=== PATIENT | female | born 1990 | race Caucasian/White ===

== ENCOUNTER 2020-03-27 21:06 | Emergency (ER) | payer MEDICARE, OTHER ==
[~2020-03-27] VITALS: Ht 165.1 cm; Wt 106.6 kg
[2020-03-27] MEDS ORDERED: ONDANSETRON HCL 4 MG ORAL DISINTEGRATING TAB PO ONE (21:30)
[2020-03-27] MEDS ORDERED: ACETAMINOPHEN 325 MG TAB PO ONE (21:30)
--- NOTE | 2020-03-27 21:30 | Emergency Department Note ---
History of Present Illnes History of Present Illness Chief Complaint: COVID PUI History of Present Illness This is a 29 year old female c/o nausea,vomiting, low grade fever up to 100, body aches and headache x1 week , pt states that she was recently exposed to a person who was positive for covid 19 eight days ago, pt also reports she had some dysuria a couple of days ago. Historian: Patient Arrival Mode: Car Onset (how long ago): day(s) (7) Location: head, all over Quality: fever, body aches, nausea, occasional vomiting and dysuria Radiation: Reports non-radiation Severity: mild Onset quality: gradual Duration (how long): day(s) (7) Timing of current episode: constant Progression: worsening Chronicity: new Context: Reports other (exposed to a person who was positive for covid 19 8 days ago); Denies recent illness, Denies recent surgery Relieving factors: none Exacerbating factors: none Associated symptoms: Reports fever/chills, Reports headaches, Reports loss of appetite, Reports malaise, Reports nausea/vomiting, Reports other (dysuria) Treatments prior to arrival: none Past Medical/Family History Physician Review I have reviewed the patient's past medical and family history. Any updates have been documented here. Past Medical History Recent Fever: Yes Clinical Suspicion of Infectio: No New/Unexplained Change in Ment: No Past Medical History: Hypertension Other Medical History: high cholesterol Past Surgical History: Social History Smoking Cessation: Never Smoker Alcohol Use: Occasional Any Illegal Drug Use: No Family History Family history of heart diseas: No Review of Systems Review of Systems Constitutional: Reports as per HPI EENTM: Reports no symptoms Cardiovascular: Reports no symptoms Respiratory: Reports no symptoms Gastrointestinal: Reports as per HPI Genitourinary: Reports no symptoms Musculoskeletal: Reports no symptoms Integumentary: Reports no symptoms Neurological: Reports no symptoms Psychological: Reports no symptoms Endocrine: Reports no symptoms Hematological/Lymphatic: Reports no symptoms Physical Exam Related Data Allergies: Coded Allergies: No Known Allergies (Unverified , 03/27/20) Triage Vital Signs Vital Signs Date Time Temp Pulse Resp B/P (MAP) Pulse Ox O2 Delivery O2 Flow Rate FiO2 03/27/20 21:11 99.7 110 24 155/86 100 Room Air Vital signs reviewed: Yes Physical Exam CONSTITUTIONAL Constitutional: Present well-developed, Present well-nourished; Absent distressed HENT HENT: Present normocephalic, Present atraumatic, Present oropharynx clear/moist, Present nose normal HENT L/R: Present left ext ear normal, Present right ext ear normal EYES Eyes: Reports PERRL, Reports conjunctivae normal NECK Neck: Present ROM normal, Present supple, Present other (no meningismus ) PULMONARY Pulmonary: Present effort normal, Present breath sounds normal CARDIOVASCULAR Cardiovascular: Present regular rhythm, Present heart sounds normal, Present capillary refill normal, Present tachycardia (104) GASTROINTESTINAL Abdominal: Present soft, Present nontender, Present bowel sounds normal GENITOURINARY Genitourinary: Present exam deferred SKIN Skin: Present warm, Present dry MUSCULOSKELETAL Musculoskeletal: Present ROM normal NEUROLOGICAL Neurological: Present alert, Present oriented x 3, Present no gross motor or sensory deficits PSYCHOLOGICAL Psychological: Present mood/affect normal, Present judgement normal Results Laboratory Laboratory Laboratory Tests Test 03/27/20 21:30 Urine Color Yellow (YELLOW) Urine Clarity Cloudy (CLEAR) Urine pH 7 (5 - 7) Urine Specific [place] 1.025 (1.010-1.025) Urine Protein Negative (NEGATIVE) Urine Glucose (UA) Negative (NEGATIVE) Urine Ketones Negative (NEGATIVE) Urine Blood Moderate (NEGATIVE) Urine Nitrite Negative (NEGATIVE) Urine Bilirubin Negative (NEGATIVE) Urine Urobilinogen 0.2 mg/dL (0.2 - 1) Urine Leukocyte Esterase Negative (NEGATIVE) Urine RBC 6-10 /HPF (0-5) Urine WBC 0-5 /HPF (0-5) Urine Epithelial Cells Few /LPF (NONE) Urine Amorphous Sediment Many (FEW) Urine Bacteria Moderate /HPF (NONE) Urine Test Negative (NEGATIVE) Lab results reviewed: Yes Imaging Imaging results reviewed: Yes Impressions Procedure: [id number] DX/CHEST SINGLE (PORTABLE) Exam Date: Exam Time: REPORT STATUS: Signed EXAMINATION: CHEST SINGLE (PORTABLE) INDICATION: ^Y ^fever, covid exposure ^Y COMPARISON: None FINDINGS: TUBES and LINES: None. LUNGS: Minimal streaky and hazy opacities in the mid and lower lungs. No consolidation. PLEURA: No pleural effusion or pneumothorax. HEART AND MEDIASTINUM: The cardiomediastinal silhouette is unremarkable. BONES AND SOFT TISSUES: No acute osseous lesion. Soft tissues are unremarkable. UPPER ABDOMEN: No free air under the diaphragm. IMPRESSION: Minimal bilateral streaky and hazy opacities in the mid lower lungs could represent early infection such as viral pneumonia or atelectasis. Signed by: Rianna Viveros MD on 03/27/2020 10:48 PM Dictated By: RIANNA VIVEROS MD 47 Transcribed By: MICHAEL on 03/27/202247 COPY TO: TWAN MCKAY MD~ Assessment & Plan Medical Decision Making MDM pt with covid 19 exposure with fever, chills, body aches, headaches, nausea, occasional vomiting, and dysuria a couple of days ago cxr ordered to eval for viral pneumonia ua ordered to eval for uti tylenol 650 mg po ordered zofran odt 4 mg po ordered pt discharged with prescriptions z jessy as directed #1, zofran odt 4 mg 1 sl q 6 hours prn nausea #30 Assessment & Plan Final Impression: (1) Viral pneumonia (2) Suspected COVID-19 virus infection Depart Disposition: HOME, SELF-CARE Last Vital Signs Date Time Temp Pulse Resp B/P (MAP) Pulse Ox O2 Delivery O2 Flow Rate FiO2 03/27/20 21:11 99.7 110 24 155/86 100 Room Air Medications in the ED Acetaminophen 650 mg ONCE ONCE PO ; Start 03/27/20 at 21:30; Stop 03/27/20 at 21:31 Ondansetron HCl 4 mg ONCE ONCE PO ; Start 03/27/20 at 21:30; Stop 03/27/20 at 21 :31 TWAN MCKAY MD Mar 27, 2020 21:30
[2020-03-27 21:42] LABS: BILIRUBIN,URINE NEGATIVE (NEGATIVE); CLARITY,URINE CLOUDY (CLEAR); COLOR,URINE YELLOW (YELLOW); KETONES,URINE NEGATIVE (NEGATIVE); LEUKOCYTE ESTERASE ,URINE NEGATIVE (NEGATIVE); NITRITE,URINE NEGATIVE (NEGATIVE); PREGNANCY TEST, URINE NEGATIVE (NEGATIVE); PROTEIN,URINE DIPSTICK NEGATIVE (NEGATIVE); URINE UROBILINOGEN 0.2 mg/dL (0.2 - 1)
[2020-03-27 21:49] LABS: AMORPHOUS SEDIMENT,URINE MANY (FEW); BACTERIA,URINE MODERATE /HPF; EPITHELIAL CELLS,URINE FEW /LPF; WBC,URINE (MAN) 0-5 /HPF (0-5)
--- OUTSIDE RECORDS SUMMARY | 2020-03-27 22:39 | XMS REPORT | Clinical Summary ---
Author Author [facility] Organization [facility] Address Unknown Phone Unavailable Care Team Providers Care Contract Post Office Clerk Name Role Phone PCP Unavailable Allergies Comments Active Allergy Reactions Severity Noted Date Hydroxyzine Hcl Nausea and 06/01/2016 Vomiting Medications End Date Status Medication Sig Dispensed Refills Start Date Active DULoxetine (CYMBALTA) 30 Take 30 mg by 0 mg delayed release mouth daily. capsule Active paliperidone (INVEGA) 9 Take 9 mg by 0 mg extended release mouth every tablet morning. Active busPIRone (BUSPAR) 5 mg Take 5 mg by 0 tablet mouth 3 times daily. Active gabapentin 600 mg Tb24 Take by 0 mouth. Active clonazePAM (KLONOPIN) 1 Take 1 mg by 0 mg tablet mouth 2 times daily as needed for Anxiety. Active PROPRANOLOL HCL ([id number] Take 20 mg by 0 PROPRANOLOL) 20 mg Tab mouth 2 times daily. Active Problems Problem Noted Date Substance abuse Family History Medical History Relation Name Comments Alcohol/Drug Father Unknown Fam Hx Mother Relation Name Status Comments Father Alive Mother Social History Date Tobacco Use Types Packs/Day Years Used Never Smoker Drinks/Week oz/Week Comments Alcohol Use No Sex Assigned at Date Recorded Not on file Industry Job Start Date Occupation Not on file Not on file Not on file Travel End Travel History Travel Start No recent travel history available. Last Filed Vital Signs Not on file Plan of Treatment Health Maintenance Due Date Last Done Comments Cervical Cancer Scrn (3 2010 Yrs) IMM Influenza Seasonal 05/22/2020May to October (>/= 19 yrs) Results Not on fileafter 03/27/2019 Insurance Type Payer Benefit Subscriber ID Effective Phone Address Plan / Dates Group MEDICARE MEDICARE xxxxxxxxxxx 2014- [phone] [address] PART A & B Present [id number] [place] [address] [employer] MEDICAID HMO [employer] xxxxxxxxx 2015-P [address] [address] [place] [address] [phone] [id number] [facility] [place] [address]
--- OUTSIDE RECORDS SUMMARY | 2020-03-27 22:39 | XMS REPORT | Clinical Summary ---
Author Author [facility] Address Unknown Phone Unavailable Care Team Providers Care Escrow Manager Name Role Phone Asked, No Pcp PCP Unavailable Allergies Comments Active Allergy Reactions Severity Noted Date Trazodone 01/12/2018 Medications End Date Status Medication Sig Dispensed Refills Start Date Active acetaZOLAMIDE (DIAMOX) Take 150 mg 0 125 MG tablet by mouth 3 (three) times a day. Active topiramate (TOPAMAX ORAL) Take by 0 mouth. Active cyclobenzaprine Take 5 mg by 0 (FLEXERIL) 5 mg tablet mouth 3 (three) times a day as needed for muscle spasms. Active levothyroxine (SYNTHROID, Take 50 mcg 0 LEVOXYL) 50 mcg tablet by mouth every morning. Active paliperidone (INVEGA) 9 Take 9 mg by 0 MG 24 hr tablet mouth every morning. Active Problems Not on file Social History Date Tobacco Use Types Packs/Day Years Used Current Every Day Smoker Smokeless Tobacco: Never Used Drinks/Week oz/Week Comments Alcohol Use No Sex Assigned at Date Recorded Not on file Industry Job Start Date Occupation Not on file Not on file Not on file Travel End Travel History Travel Start No recent travel history available. Last Filed Vital Signs Not on file Plan of Treatment Health Maintenance Due Date Last Done Comments CERVICAL CANCER SCREENING 2010 INFLUENZA VACCINE 03/22/2020 Results Not on fileafter 03/27/2019 Insurance Type Payer Benefit Subscriber ID Effective Phone Address Plan / Dates Group Medicare MEDICARE MEDICARE xxxxxxxxxxx 2014- NII, PART A AND Present [place] HMO [employer] AMER[employer]ROUP xxxxxxxxx 2017-P STAR+PLUS resent [facility] Advance Directives For more information, please contact: [phone] Patient Media Consultant Explanation Type Date Recorded Advance Directives, Living Will and Medical Power of Handle Sander Operator
--- OUTSIDE RECORDS SUMMARY | 2020-03-27 22:40 | XMS REPORT | Summary of Care ---
Author Author [facility] Organization [facility] Address Unknown Phone Unavailable Encounter J CARLOS Garcia(FIN) [id number] Date(s): 12/10/19 - 12/10/19 [id number] [place] [address]- [phone] Encounter Diagnosis Acute pelvic pain (Discharge Diagnosis) - 12/10/19 Discharge Disposition: Home or Self Care Attending Physician: Yossi Hampton MD Vital Signs 1 2 3 Most recent to oldest [Reference Range]: 162.56 cm (12/10/19 8:15 PM) Height 98.0 DegF (12/10/19 10:06 PM) 97.8 DegF (12/10/19 8:15 PM) Temperature Oral [96.4-99.1 DegF] 139/67 mmHg (12/10/19 10:06 PM) 143/93 mmHg *HI* (12/10/19 9:10 PM) 153/83 mmHg *HI* (12/10/19 8:33 PM) Blood Pressure [90-140/60-90 mmHg] 20 BRMIN (12/10/19 10:06 PM) 20 BRMIN (12/10/19 9:10 PM) 20 BRMIN (12/10/19 8:15 PM) Respiratory Rate [14-20 BRMIN] 88 bpm (12/10/19 10:06 PM) 98 bpm (12/10/19 9:10 PM) 98 bpm (12/10/19 8:33 PM) Peripheral Pulse Rate [60-100 bpm] 110 kg (12/10/19 8:15 PM) Weight 41.63 m2 (12/10/19 8:15 PM) Body Mass Index Problem List Condition Effective Dates Status Health Status Informan t HTN Active (hypertension)(Confi rmed)1 Hypercholesteremia(C Active onfirmed) Migraine Resolved headache(Confirmed) Substance Resolved abuse(Confirmed)2 1takes b/p meds 2Meth - last used 9 days ago Allergies, Adverse Reactions, Alerts Substance Reaction Severity Status Vistaril Active traZODone Active Medications Naprosyn 500 mg oral tablet 500 mg = 1 tab, PO, BID, X 7 day, # 14 tab, 0 Refill(s), Pharmacy: [facility]/pharmacy #[id number] Start Date: 12/10/19 Stop Date: 12/17/19 Status: Ordered Results Most recent to 1 oldest [Reference Range]: UA Bacteria [None Occasional /HPF Seen /HPF] (12/10/19 8:34 PM) UA Bili [Negative] Negative *NA* (12/10/19 8:34 PM) UA Blood [Negative] Negative (12/10/19 8:34 PM) UA Color [Yellow] Yellow *NA* (12/10/19 8:34 PM) UA Glucose [Negative Negative mg/dL mg/dL] (12/10/19 8:34 PM) UA Ketones [Negative Negative mg/dL mg/dL] *NA* (12/10/19 8:34 PM) UA Leuk Est Negative [Negative] (12/10/19 8:34 PM) UA Mucus [None Seen] None Seen (12/10/19 8:34 PM) UA Nitrite Negative [Negative] (12/10/19 8:34 PM) UA pH [5.0-8.0] 7.5 (12/10/19 8:34 PM) U Preg [Negative] Negative (12/10/19 8:34 PM) UA Protein [Negative Negative mg/dL mg/dL] (12/10/19 8:34 PM) UA RBC [0-2 /HPF] 0-2 /HPF (12/10/19 8:34 PM) UA Spec Grav 1.010 [<=1.030] (12/10/19 8:34 PM) UA Sq Epi [Few /LPF] Few /LPF (12/10/19 8:34 PM) UA Turbidity [Clear] Clear (12/10/19 8:34 PM) UA Uric Ac Madeleine Rare /HPF [None Seen /HPF] (12/10/19 8:34 PM) UA Urobilinogen 0.2 EU/dL [0.1-1.0 EU/dL] (12/10/19 8:34 PM) UA WBC [None Seen 0-2 /HPF /HPF] (12/10/19 8:34 PM) Immunizations No data available for this section Procedures Procedure Date Related Diagnosis Body Site Status section Completed Social History Social History Type Response Alcohol Past Substance Abuse Use: Past. Type: Methamphe tamines.1 Smoking Status Current every day smoker; T ype: Cigarettes; Previous treatment: None; Ready to change: Yes; Concerns about tobacco use in household: No; Exposure to Tobacco Smoke self; Cigarette Smoking L ast 365 Days Yes; Reg Smoking Cessation Counseling Yes; Tobacco use p er day: 5; entered on: 12/10/19 1Pt currently is admitted at [facility] [place] [place] for psychiatric treatment, states has not had Meth in 9 days. Assessment and Plan No data available for this section
--- OUTSIDE RECORDS SUMMARY | 2020-03-27 22:40 | XMS REPORT | Summary of Care ---
Author Author [facility] Organization [facility] Address Unknown Phone Unavailable Encounter J CARLOS Garcia(MERRY) [id number] Date(s): 09/20/16 - 09/20/16 [facility] [address] [id number]- [phone] Discharge Disposition: Home or Self Care Attending Physician: Freddy Charles MD Vital Signs No data available for this section Problem List Condition Effective Dates Status Health Status Informan t HTN Active (hypertension)(Confi rmed)1 Hypercholesteremia(C Active onfirmed) Migraine Resolved headache(Confirmed) Substance Resolved abuse(Confirmed)2 1takes b/p meds 2Meth - last used 9 days ago Allergies, Adverse Reactions, Alerts Substance Reaction Severity Status Vistaril Active Medications No data available for this section Results No data available for this section Immunizations No data available for this section Procedures Procedure Date Related Diagnosis Body Site section Social History Social History Type Response Substance Abuse Use: Current. Type: Metham phetamines.1 Smoking Status Current every day smoker; T ype: Cigarettes; Previous treatment: None; Ready to change: No; Concerns about tobacco u se in household: No; Exposure to Tobacco Smoke None; Cigarette Smoking L ast 365 Days Yes; Reg Smoking Cessation Counseling No 1Pt currently is admitted at [facility] for psychiatric treatment, states has not had Meth in 9 days. Assessment and Plan No data available for this section
--- OUTSIDE RECORDS SUMMARY | 2020-03-27 22:40 | XMS REPORT | Summary of Care ---
Author Author [facility] [place] [facility] Organization [facility] Address Unknown Phone Unavailable Encounter HQ Jose(FIN) [id number] Date(s): 12/17/19 - 12/17/19 [facility] [address] [address]- Attending Physician: Timo Walters MD Vital Signs No data available for this section Problem List Condition Effective Dates Status Health Status Informan t HTN Active (hypertension)(Confi rmed)1 Hypercholesteremia(C Active onfirmed) Migraine Resolved headache(Confirmed) Substance Resolved abuse(Confirmed)2 1takes b/p meds 2Meth - last used 9 days ago Allergies, Adverse Reactions, Alerts Substance Reaction Severity Status Vistaril Active traZODone Active Medications clonazePAM 1 mg oral tablet 1 tab, 2 Times Daily, 0 Refill(s) Start Date: 12/14/19 Status: Ordered doxepin 50 mg oral capsule 1 tab, Bedtime, 0 Refill(s) Start Date: 12/14/19 Status: Ordered Results No data available for this section [...] use p er day: 5; entered on: 12/14/19 1Pt currently is admitted at [facility] for [facility] treatment, states has not had Meth in 9 days. Assessment and Plan No data available for this section
--- OUTSIDE RECORDS SUMMARY | 2020-03-27 22:40 | XMS REPORT | Summary of Care ---
Author Author [facility] Organization [facility] Address Unknown Phone Unavailable Encounter HQ Jose(FIN) [id number] Date(s): 01/01/19 - 01/01/[address] [facility] [address] [place] [address]- [phone] Encounter Diagnosis Anxiety (Discharge Diagnosis) - 01/01/19 Discharge Disposition: Home or Self Care Attending Physician: Memo Hernandez MD Vital Signs Most recent to 1 2 oldest [Reference Range]: Height 162.56 cm (01/01/19 9:06 PM) Temperature Oral 98.6 DegF 98.6 DegF [96.4-99.1 DegF] (01/01/19 10:14 PM) (01/01/19 9:06 PM) Blood Pressure 155/89 mmHg [90-140/60-90 mmHg] *HI* (01/01/19 9:06 PM) Systolic Blood 133 mmHg Pressure [90-140 (01/01/19 10:14 PM) mmHg] Diastolic Blood 90 mmHg Pressure [60-90 (01/01/19 10:14 PM) mmHg] Respiratory Rate 18 BRMIN 22 BRMIN [14-20 BRMIN] (01/01/19 10:14 PM) *HI* (01/01/19 9:06 PM) Peripheral Pulse 96 bpm 110 bpm Rate [60-100 bpm] (01/01/19 10:14 PM) *HI* (01/01/19 9:06 PM) Weight 109.091 kg (01/01/19 9:06 PM) Body Mass Index 41.28 m2 (01/01/19 9:06 PM) Problem List Condition Effective Dates Status Health Status Informan t HTN Active (hypertension)(Confi rmed)1 Hypercholesteremia(C Active onfirmed) Migraine Resolved headache(Confirmed) Substance Resolved abuse(Confirmed)2 1takes b/p meds 2Meth - last used 9 days ago Allergies, Adverse Reactions, Alerts Substance Reaction Severity Status Vistaril Active traZODone Active Medications Ativan 1 mg, Route: PO, Drug form: TAB, ONCE, Dosing Weight 109.091, kg, Priority: STAT , Start date: 01/01/19 21:46:00 CDT, Stop date: 01/01/19 21:46:00 CDT Start Date: 01/01/19 Stop Date: 01/01/19 Status: Discontinued Xanax 0.25 mg oral tablet 2 tab, Route: PO, Drug form: TAB, ONCE, Dosing Weight 109.091, kg, Priority: STA T, Start date: 01/01/19 21:57:00 CDT, Stop date: 01/01/19 21:57:00 CDT Start Date: 01/01/19 Stop Date: 01/01/19 Status: Completed Results No data available for this section Immunizations No data available for this section Procedures Procedure Date Related Diagnosis Body Site Status section Completed Social History Social History Type Response Substance Abuse Use: Current. Type: Metham phetamines.1 Smoking Status Current every day smoker; T ype: Cigarettes; Previous treatment: None; Ready to change: No; Concerns about tobacco u se in household: No; Exposure to Tobacco Smoke None; Cigarette Smoking L ast 365 Days Yes; Reg Smoking Cessation Counseling No entered on: 01/01/19 1Pt currently is admitted at [facility] for psychiatric treatment, states has not had Meth in 9 days. Assessment and Plan No data available for this section
--- OUTSIDE RECORDS SUMMARY | 2020-03-27 22:40 | XMS REPORT | Continuity of Care Document ---
Author Author [employer] Address Unknown Phone Unavailable Care Team Providers Care Regulatory Compliance Engineer Name Role Phone [employer] Unavailable Un available Problems Problem Status Onset Date Classification Date Reported Comments Source Pelvic and perineal pain 12/10/2019 12/12/2019 [facility] ABD PAIN Active 12/10/2019 [facility] Acute vaginitis 12/09/2019 12/11/2019 [facility] Calculus of kidney 12/08/2019 12/11/2019 [facility] Unspecified abdominal pain 12/08/2019 12/11/2019 [facility] Hepatomegaly with splenomegaly, not else where classified 12/08/2019 12/11/2019 [facility] Cough 07/3008/01/2019 [facility] Bronchitis, not specified as acute or chronic 07/30/2019 08/01/2019 [facility] Unspecified asthma, uncomplicated 07/30/2019 08/01/2019 [facility] COUGH Active 07/30/2019 [facility] Acute upper respiratory infection, unspecified 07/27/2019 07/29/2019 [facility] Malaise and fatigue 07/27/2019 07/29/2019 [facility] Nausea 12/0 01/201907/29/2019 [facility] BODY ACHE Active 07/19/2019 [facility] Anxiety disorder, unspecified 01/01/2019 01/04/2019 [facility] ANXIETY Active 01/01/2019 [facility] CERVICALGIA Active 12/11/2018 [facility] [place] M54.2 Active 10/20/2018 [facility] [place] AMS/HYPERCAPNIC RESP FAILURE A ctive 11/20/2016 [facility] RESPIRATORY DISTRESS Active 11/20/2016 [facility] CHEST PAIN Active 05/12/2016 [facility] CHEST PAIN//EMS Active 03/28/2016 [facility] Discharge Diagnosis: Atypical chest pain 03/28/2016 03/31/2016 [facility] Hypertensive disorder, systemic arterial (disorder) Active Problem 12/19/2019 takes b/p meds [facility], [place],[facility] Hypercholesterolemia (disorder) Active Problem [facility], [facility] [place],[facility] Migraine (disorder) Resolved Problem 12/19/2019 [facility] Fri [place],[facility] Substance abuse (disorder) Res olved Problem Meth - last used 9 days ago [facility], [facility] [place],[facility] ALTERED MENTAL STATUS, UNSPECIFIED Active [facility] RESPIRATORY FAILURE, UNSPECIFIED WITH HY Active [facility] Medications Medication Details Route Status Patient Instructions Ordering Provider Order Date Source clonazePAM 1 mg oral tablet 1 tab, 2 Times Daily, 0 Refill(s) Active 12/14/2019 [facility] Doxepin Hydrochloride 50 MG Oral Capsule 1 tab, Bedtime, 0 Refill(s) Active 12/14/2019 [facility] Naproxen 500 MG Oral Tablet [Naprosyn] 500 mg = 1 tab, PO, BID, X 7 day, # 14 tab, 0 Refill(s), Pharmacy: [facility]/pharmacy #[id number] Active 12/11/2019 [facility] Azithromycin 1,000 mg, Route: PO, Drug form: TAB, ONCE, Dosing Weight 110, kg, Start date: 12/09/19 0:39:00 CDT, Stop date: 12/09/19 0:39:00 CDT, ABX Indication: Genital Tract Infection Inactive 12/09/2019 [facility] Flagyl 2 gm, Route: PO, ONCE, Dosing Weight 110, kg, Start date: 12/09/19 0:39:00 CDT, Stop date: 12/09/19 0:39:00 CDT, ABX Indication: Genital Tract Infection Inactive 12/09/2019 [facility] Rocephin 250 mg, Route: IM, Dr ug form: PDR/INJ, ONCE, Dosing Weight 110, kg, Priority: STAT, Start date: 12/09/19 0:39:00 CDT, Stop date: 12/09/19 0:39:00 CDT, ABX Indication: Genital Tract Infection Inactive 12/09/2019 [facility] ketOROLAC 15 mg/mL injectable solution 15 mg, Route: IVP, Drug form: INJ, ONCE, Dosing Weight 110, kg, Priority: STAT, Start date: 12/09/19 0:01:00 CDT, Stop date: 12/09/19 0:01:00 CDT Inactive 12/09/2019 [facility] Zofran Notes: (Same as: Zofran ) MEDICATION WASTE Product Size: 4 mg Product Wasted: ___ mg Inactive 12/09/2019 [facility] Fentanyl Notes: (Same as: Subl imaze) Preservative free. Inactive 12/09/2019 [facility] Indocin 50 mg, PO, Daily Active 12/09/2019 [facility] Doxepin Hydrochloride 50 MG Oral Capsule 50 mg = 1 cap, PO, Bedtime Active 12/09/2019 [facility] aripiprazole 15 MG Oral Tablet [Abilify] 15 mg = 1 tab, PO, Bedtime Active 12/09/2019 [facility] Sertraline 50 MG Oral Tablet [Zoloft] 50 mg = 1 tab, PO, Daily Active 12/09/2019 [facility] clonazePAM 1 mg oral tablet 1 mg = 1 tab, PO, BID Active 12/09/2019 [facility] Tylenol with Codeine 120 mg-12 mg/5 mL oral liquid 15 ml, PO, Q6H, PRN Cough, X 7 day, # 120 mL, 0 Refill(s), Pharmacy: [facility]/pharmacy #[id number] Active 07/30/2019 [facility] predniSONE 20 mg oral tablet 6 0 mg = 3 tab, PO, Daily, Take 3 tablets for 60 mg dose, X 5 day, # 15 tab, 0 Refill(s), Pharmacy: [facility]/pharmacy #[id number] Active 07/30/2019 [facility] Doxycycline Monohydrate 100 MG Oral Tablet 100 mg = 1 tab, PO, Q12H, X 10 day, # 20 tab, 0 Refill(s), Pharmacy: [facility]/pharmacy #[id number] Active 07/30/2019 [facility] Amoxicillin 875 MG / Clavulanate 125 MG Oral Tablet [Augmentin 875-mg] 875 mg = 1 tab, PO, BID, X 10 day, # 20 tab, 0 Refill(s), Pharmacy: [facility]/pharmacy #[id number] Active 07/30/2019 [facility] Promethazine Notes: (Same as: Phenergan) Inactive 07/30/2019 [facility] Prednisone Notes: Take with fo od. Inactive 07/30/2019 [facility] Albuterol 0.833 MG/ML / Ipratropium Brom mehreen 0.167 MG/ML Inhalant Solution [DuoNeb] Notes: (Same as: Duoneb) Inactive 07/30/2019 [facility] Acetaminophen 300 MG / Codeine Phosphate 30 MG Oral Tablet [Tylenol with Codeine #3] 1 tab, Route: PO, Dosing Weight 108.182, kg, Q6H, Start date: 07/28/19 0:00:00 DYE OPERATOR, Duration: 30 day, Stop date: 08/26/19 18:00:00 DYE OPERATOR, No Longer Active 07/28/2019 [facility] Ondansetron 4 MG Disintegrating Tablet [Zofran] 4 mg = 1 tab, PO, BID, PRN Nausea and Vomiting, Dissolve tab under tongue, # 10 tab, 0 Refill(s) Active 07/28/2019 [facility] Acetaminophen 300 MG / Codeine Phosphate 30 MG Oral Tablet [Tylenol with Codeine #3] 1 - 2 tab, PO, Q4H, PRN Cough, not to ex ceed 4000 mg acetaminophen per day Use with caution and take a stool softener while using this medication as it can cause constipation., X 2 day, # 20 tab, 0 Refill(s) Active 07/28/2019 [facility] benzonatate 100 MG Oral Capsule [Tessalon Perles] 100 mg = 1 cap, PO, Q8H, PRN cough, do not crush or chew, X 10 day, # 30 cap, 0 Refill(s) Active 07/28/2019 [facility] ibuprofen 800 mg oral tablet 8 00 mg = 1 tab, PO, Q8H, PRN Fever or Pain, Take with food For acute pain, X 10 day, # 30 tab, 0 Refill(s) Active 07/28/2019 [facility] albuterol 90 mcg/inh inhalation aerosol 2 puff, INHALATION, QID, PRN Wheezing, # 17 gm, 0 Refill(s) Active 07/28/2019 [facility] acetaminophen-codeine #3 1 tab , Route: PO, Drug Form: TAB, Dosing Weight 108.182, kg, ONCE, STAT, Start date: 07/27/19 22:13:00 DYE OPERATOR, Stop date: 07/27/19 22:13:00 DYE OPERATOR Inactive 07/28/2019 [facility] Albuterol 0.83 MG/ML Inhalant Solution 2.49 mg, Route: NEB, Drug form: SOLN, ONCE, Dosing Weight 108.182, kg, Priority: STAT, Start date: 07/27/19 22:03:00 DYE OPERATOR, Stop date: 07/27/19 22:03:00 DYE OPERATOR Inactive 07/28/2019 [facility] Brompheniramine Maleate 0.4 MG/ML / Dext romethorphan Hydrobromide 2 MG/ML / Pseudoephedrine Hydrochloride 6 MG/ML Oral Solution [Bromfed DM] 5 mL, PO, TID, PRN cough, X 8 day, # 120 mL, 0 Refill(s) Active 07/20/2019 [facility] benzonatate 200 MG Oral Capsule [Tessalon] 200 mg = 1 cap, PO, Bedtime, X 10 day, # 10 cap, 0 Refill(s) Active 07/20/2019 [facility] predniSONE 20 mg oral tablet S ee Special Instructions, PO, Daily, 4 day regimen: Day 1 - 40 mg (2 tabs) Day 2 - 30 mg (1 1/2 tabs) Day 3 - 20 mg (1 tab) Day 4 - 10 mg (1/2 tab), X 4 day, # 6 tab, 0 Refill(s) Active 07/20/2019 [facility] Dexamethasone 10 mg, Route: IM , ONCE, Dosing Weight 108.182, kg, Priority: STAT, Start date: 07/19/19 21:23:00 DYE OPERATOR, Stop date: 07/19/19 21:23:00 DYE OPERATOR Inactive 07/20/2019 [facility] Ketorolac 30 mg, Route: IM, Dr ug form: INJ, ONCE, Dosing Weight 108.182, kg, Priority: STAT, Start date: 07/19/19 21:23:00 DYE OPERATOR, Stop date: 07/19/19 21:23:00 DYE OPERATOR Inactive 07/20/2019 [facility] Alprazolam 0.25 MG Oral Tablet [Xanax] 2 tab, Route: PO, Drug form: TAB, ONCE, Dosing Weight 109.091, kg, Priority: STAT, Start date: 01/01/19 21:57:00 CDT, Stop date: 01/01/19 21:57:00 CDT Inactive 01/02/2019 [facility] Ativan 1 mg, Route: PO, Drug f orm: TAB, ONCE, Dosing Weight 109.091, kg, Priority: STAT, Start date: 01/01/19 21:46:00 CDT, Stop date: 01/01/19 21:46:00 CDT Inactive 01/02/2019 [facility] Clonidine Hydrochloride 0.2 MG Oral Tablet PO, TID, 0 Refill(s) Active 11/24/2016 [facility] topiramate 50 MG Oral Tablet [Topamax] 50 mg = 1 tab, PO, QAM, # 30 tab, 0 Refill(s) Active 11/24/2016 [facility] topiramate 25 MG Oral Tablet [Topamax] 75 mg = 3 tab, PO, Bedtime, # 90 tab, 0 Refill(s) Active 11/24/2016 [facility] Buprenorphine 4 MG / Naloxone 1 MG Oral Strip [Suboxone] 1 ea, SL, BID, # 28 ea, 0 Refill(s) Active 11/24/2016 [facility] duloxetine 60 MG Enteric Coated Capsule [Cymbalta] 60 mg = 1 cap, PO, QAM, # 30 cap, 0 Refill(s) Active 11/24/2016 [facility] duloxetine 30 MG Enteric Coated Capsule [Cymbalta] 30 mg = 1 cap, PO, Bedtime, # 30 cap, 0 Refill(s) Active 11/24/2016 [facility] 168 HR Clonidine 0.0125 MG/HR Transdermal Patch 1 patch, TOP, Q7D, 0 Refill(s) Inactiv e 11/24/2016 [facility] Lidocaine 0.05 MG/MG Transdermal Patch Notes: Apply only once for up to 12 hours in a 24-hour period (12 hours on and 12 hours off). (Same as: Lidoderm) "Remove old patch before application of new patch" Inactive 11/24/2016 [facility] remove patch Notes: Remove pat ch 12 hours after application each day. No Longe r Active 11/24/2016 [facility] Topamax Notes: (Same As: Topam ax) "Do Not Crush" No Longer Active 11/24/2016 [facility] Clonidine Hydrochloride 0.2 MG Oral Tablet Notes: (Same As: Catapres) No Longer Active 11/23/2016 [facility] buprenorphine-naloxone Notes: Same as: Suboxone Non- Formulary No Longer Active 11/23/2016 [facility] Benadryl Notes: (Same as: [place] dryl) Inactive 11/23/2016 [facility] Hydromorphone Notes: Same as D ilaudid Inactive 11/23/2016 [facility] Buprenorphine 8 MG / Naloxone 2 MG Sublingual Tablet Notes: Same as: Suboxone Non-Formulary Inactive 11/23/2016 [facility] gabapentin 300 MG Oral Capsule Notes: (Same as: Neurontin) Inactive 11/23/2016 [facility] Hydromorphone Notes: Same as D ilaudid Inactive 11/23/2016 [facility] D5W 1/2NS 1,000 mL 1,000 mL, R ate: 150 ml/hr, Infuse over: 6.7 hr, Route: IV, Dosing Weight 139.5 kg, Total Volume: 1,000, Start date: 11/23/16 2:31:00 CDT, Duration: 30 day, Stop date: 12/23/16 2:30:00 CDT Inactive 11/23/2016 [facility] D5W 1/2NS 1,000 mL + M.V.I.-12 10 mL Daily 1,000 mL, Rate: 150 ml/hr, Infuse over: 6.7 hr, Route: IV, Dosing Weight 139.5 kg, Total Volume: 1,010, Start date: 11/22/16 14:14:00 CDT, Duration: 30 day, Stop date: 12/22/16 14:13:00 CDT No Longe r Active 11/22/2016 [facility] Acetazolamide Notes: (Same as: Diamox) No Longer Active 11/22/2016 [facility] potassium phosphate + sodium chloride 0.9% INJ 250 mL Notes: (Same as: K Phosphate.) 1 mMol phoshate has 1.47 mEq potassium Infuse over 4 hours No Longer Active 11/22/2016 [facility] potassium chloride Notes: Infu se at a rate of 10 mEq/hr. (Same as: KCL) No Longer Active 11/22/2016 [facility] sodium phosphate + sodium chloride 0.9% INJ 250 mL 15 mmol, 5 mL, Route: IVPB, PRN, Dosing Weight 139.5, kg, PRN Abnormal Lab Result, Start date: 11/22/16 6:40:00 CDT, Duration: 30 day, Stop date: 12/22/16 6:39:00 CDT, FOR ICU USE ONLY No Longe r Active 11/22/2016 [facility] Magnesium Oxide Notes: (Same a s: Mag-Ox 400) Magnesium oxide [id number] elemental magnesium Dose=____mg magnesium oxide (___mg elemental magnesium) No Longer Active 11/22/2016 [facility] Magnesium Sulfate Notes: WASTE : F/P - Sink; E - Municipal Trash Bin No Longer Active 11/22/2016 [facility] Calcium Carbonate 500 MG Chewable Tablet Notes: (Same As: Tums) Calcium Carbonate 500 mg = 200 mg elemental calcium Dose = mg calcium carbonate ( mg elemental calcium) No Longer Active 11/22/2016 [facility] Calcium Gluconate Notes: WASTE : F/P - Sink; E - Municipal Trash Bin No Longer Active 11/22/2016 [facility] potassium phosphate-sodium phosphate 250 mg-280 mg-160 mg oral powder for reconstitution Notes: (Same as: Phos-NaK) Each 1.5 gm pkt has 250mg phosphorous. Mix w/2.5oz water and stir. No Longer Active 11/22/2016 [facility] Vancomycin 2001 mg: infuse ov er 2.5 hours No Longer Active 11/22/2016 [facility] Tylenol Notes: Do not exceed 4 gm/day. (Same as: Tylenol) No Longer Active 11/22/2016 [facility] 168 HR Clonidine 0.0125 MG/HR Transdermal Patch Notes: Patch delivers 0.3 mg/24 hours; Patch is applied weekly. [id number]. "Remove old patch before application of new patch" No Longer Active 11/22/2016 [facility] remove patch Notes: Remove old patch before application of new patch. No Longer Active 11/22/2016 [facility] heparin Notes: porcine heparin No Longer Active 11/21/2016 [facility] Labetalol Notes: (Same as: Rose Mitchelldaroger) Push over 2 minutes Give bolus over 2-3 minutes. Inactive 11/21/2016 [facility] Cymbalta Notes: (Same as: Cymb tuan) (Do Not Crush) Inactive 11/21/2016 [facility] remove patch Notes: Remove old patch before application of new patch. Inactive 11/21/2016 [facility] 168 HR Clonidine 0.25127 MG/HR Transdermal Patch Notes: Patch delivers 0.1 mg/24 hours; Patch is applied weekly. "Remove old patch before application of new patch" (Same As: [id number]) Inactive 11/21/2016 [facility] Topamax Notes: (Same As: Topam ax) "Do Not Crush" No Longer Active 11/21/2016 [facility] paliperidone 6 mg, Route: PO, Drug form: ERTAB, QAM, Dosing Weight 139.5, kg, Start date: 11/21/16 9:00:00 CDT, Duration: 30 day, Stop date: 12/20/16 9:00:00 CDT Inactive 11/21/2016 [facility] Prilosec 40 mg, Route: PO, Prasanth g form: DRC, Daily, Dosing Weight 139.5, kg, Start date: 11/21/16 9:00:00 CDT, Duration: 30 day, Stop date: 12/20/16 9:00:00 CDT No Longer Active 11/21/2016 [facility] Protonix Notes: For IV push re constitute with 10 ml 0.9% sodium chloride and push over 2 minutes. (Same as: Protonix) No Longer Active 11/21/2016 [facility] Clonidine Hydrochloride 0.1 MG Oral Tablet Notes: (Same As: Catapres) Inactive 11/21/2016 [facility] cefTRIAXone + sodium chloride 0.9% INJ 100 mL Notes: (Same As: Rocephin). Use with 100 mL NS and infuse over 30 min MEDICATION WASTE Product Size: 2000 mg Product Wasted: ___ mg No Longer Active 11/21/2016 [facility] Cymbalta Notes: (Same as: Cymb tuan) (Do Not Crush) No Longer Active 11/21/2016 [facility] Topamax Notes: (Same As: Topam ax) "Do Not Crush" No Longer Active 11/21/2016 [facility] Vancomycin 2,000 mg, Route: IV PB, Drug form: INJ, [id number], Dosing Weight 139.5, kg, Start date: 11/20/16 21:00:00 CDT, Duration: 30 day, Stop date: 12/20/16 9:00:00 CDT, Pediatric Dosing Inactive 11/21/2016 [facility] Vancomycin 2001 mg: infuse ov er 2.5 hours No Longer Active 11/21/2016 [facility] Ceftriaxone 2 gm, Route: IVPB, Drug form: PDR/INJ, [id number], Dosing Weight 139.5, kg, Start date: 11/20/16 19:00:00 CDT, Duration: 30 day, Stop date: 12/20/16 11:00:00 CDT Inactive 11/21/2016 [facility] Protonix Notes: For IV push re constitute with 10 ml 0.9% sodium chloride and push over 2 minutes. (Same as: Protonix) No Longer Active 11/20/2016 [facility] Labetalol Notes: (Same as: Matt valentin Trandaroger) Push over 2 minutes Give bolus over 2-3 minutes. Inactive 11/20/2016 [facility] Protonix Notes: Tablet should not be chewed or crushed. (Same as: Protonix) No Longer Active 11/20/2016 [facility] Ceftriaxone Notes: (Same As: Jose roman). Use with 100 mL NS and infuse over 30 min MEDICATION WASTE Product Size: 2000 mg Product Wasted: ___ mg Inactive 11/20/2016 [facility] Haldol Notes: (Same as: Haldol) No Longer Active 11/20/2016 [facility] Hydralazine Notes: (Same as: A presoline) Push over 5 minutes Inactive 11/20/2016 [facility] Ibuprofen 400 MG Oral Tablet 8 00 mg = 2 tab, PO, TID, PRN Pain, # 120 tab, 0 Refill(s) No Longer Active 11/20/2016 [facility] Acetaminophen 500 MG Oral Tablet [Tylenol] 500 mg = 1 tab, PO, Q8H, PRN Pain, # 60 tab, 0 Refill(s) Active 11/20/2016 [facility] Ondansetron 4 MG Oral Tablet [Zofran] 8 mg = 2 tab, PO, TID, PRN Nausea & Vomiting, # 10 tab, 0 Refill(s) No Longer Active 11/20/2016 [facility] Promethazine Hydrochloride 25 MG Oral Tablet 25 mg = 1 tab, PO, Q6H, PRN Nausea/Vomiting, # 12 tab, 0 Refill(s) No Longer Active 11/20/2016 [facility] Buprenorphine 4 MG / Naloxone 1 MG Oral Strip [Suboxone] 1 ea, SL, BID, # 30 ea, 0 Refill(s) No Longer Active 11/20/2016 [facility] paliperidone 6 mg oral tablet, extended release 6 mg = 1 tab, PO, QAM, # 30 tab, 0 Refill(s) Active 11/20/2016 [facility] paliperidone 3 mg oral tablet, extended release 3 mg = 1 tab, PO, QAM, 0 Refill(s) Active 11/20/2016 [facility] Omeprazole 20 MG Enteric Coated Capsule [Prilosec] 40 mg = 2 cap, PO, Daily, # 30 cap, 1 Refill(s) Active 11/20/2016 [facility] Centrum oral tablet 1 tab, PO, Daily, # 30 tab, 0 Refill(s) Active 11/20/2016 [facility] duloxetine 30 MG Enteric Coated Capsule [Cymbalta] 30 mg = 1 cap, PO, Bedtime, # 90 cap, 0 Refill(s) No Longer Active 11/20/2016 [facility] duloxetine 60 MG Enteric Coated Capsule [Cymbalta] 60 mg = 1 cap, PO, QAM, # 30 cap, 1 Refill(s) No Longer Active 11/20/2016 [facility] Trazodone Hydrochloride 100 MG Oral Tablet 100 mg = 1 tab, PO, Bedtime, # 30 tab, 1 Refill(s) No Longer Active 11/20/2016 [facility] tizanidine 4 mg oral tablet 4 mg = 1 tab, PO, TID, PRN for muscle spasms, # 90 tab, 0 Refill(s) Active 11/20/2016 [facility] gabapentin 300 MG Oral Capsule 300 mg = 1 cap, PO, TID, # 90 cap, 1 Refill(s) No Longe r Active 11/20/2016 [facility] busPIRone 15 mg oral tablet 15 mg = 1 tab, PO, TID, # 90 tab, 0 Refill(s) No Longer Active 11/20/2016 [facility] topiramate 25 MG Oral Tablet [Topamax] 75 mg = 3 tab, PO, Bedtime, 0 Refill(s) No Longer Active 11/20/2016 [facility] topiramate 50 MG Oral Tablet [Topamax] 50 mg = 1 tab, PO, QAM, # 60 tab, 0 Refill(s) No Longer Active 11/20/2016 [facility] Ceftriaxone Notes: (Same As: Jose roman). Use with 100 mL NS and infuse over 30 min MEDICATION WASTE Product Size: 2000 mg Product Wasted: ___ mg Inactive 11/20/2016 [facility] Vancomycin 2001 mg: infuse ov er 2.5 hours Inactive 11/20/2016 [facility] Sodium Chloride 0.154 MEQ/ML Injectable Solution 1,000 mL, 1000 ml/hr, Infuse Over: 1 hr, Route: IV, 1,000, Drug form: INJ, ONCE, Priority: STAT, Dosing Weight 139.5 kg, Start date: 11/20/16 9:59:00 CDT, Duration: 1 doses or times, Stop date: 11/20/16 9:59:00 CDT Inactive 11/20/2016 [facility] Sodium Chloride 0.154 MEQ/ML Injectable Solution 1,000 mL, 1000 ml/hr, Infuse Over: 1 hr, Route: IV, 1,000, Drug form: INJ, ONCE, Priority: STAT, Dosing Weight 139.5 kg, Start date: 11/20/16 8:51:00 CDT, Duration: 1 doses or times, Stop date: 11/20/16 8:51:00 CDT Inactive 11/20/2016 [facility] ketOROLAC 30 mg/mL injectable solution 4 days MEDICATION WASTE Product Size: 30 mg Product Wasted: _0__ mg Inactive 05/12/2016 [facility] Nitroglycerin 0.4 mg, Route: S L, ONCE, Dosing Weight 109.091, kg, Priority: STAT, Start date: 05/12/16 13:28:00 CDT, Stop date: 05/12/16 13:28:00 CDT Inactive 05/12/2016 [facility] Sodium Chloride 0.9% IV 25 mL, Route: IV, Start date: 05/12/16 13:00:00 CDT, Duration: 30 day, Stop date: 06/11/16 12:59:00 CDT, PRN Line Flush Inactive 05/12/2016 [facility] Tylenol Notes: (Same as: Tylen ol) Inactive 05/12/2016 [facility] Sodium Chloride 0.154 MEQ/ML Injectable Solution 1,000 mL, 1000 ml/hr, Infuse Over: 1 hr, Route: IV, 1,000, Drug form: INJ, ONCE, Priority: STAT, Dosing Weight 109.091 kg, Start date: 05/12/16 12:45:00 CDT, Duration: 1 doses or times, Stop date: 05/12/16 12:45:00 CDT Inactive 05/12/2016 [facility] Saline Flush 0.9% Notes: (Same as: BD Posiflush) Inactive 05/12/2016 [facility] Zofran 4 mg, Route: IVP, Drug form: INJ, ONCE, Dosing Weight 109.091, kg, Priority: STAT, Start date: 03/28/16 15:14:00 CDT, Stop date: 03/28/16 15:14:00 CDT Inactive 03/28/2016 [facility] Tylenol Notes: Do not exceed 4 gm/day. (Same as: Tylenol) Inactive 03/28/2016 [facility] Saline Flush 0.9% Notes: (Same as: BD Posiflush) Inactive 03/28/2016 [facility] Allergies, Adverse Reactions, Alerts Substance Category Reaction Severity Reaction type Status Date Reported Comments Source Vistaril Assertion Drug allergy Active Medical Group traZODone Assertion Drug allergy Active Medical Group Immunizations No Data Provided for This Section Results Order Name Results Value Reference Range Date Interpretation Comments Source URINE AND STOOL UA Color Yellow *NA* (12/10/19 8:34 PM) Yellow 12/11/2019 [facility] URINE AND STOOL UA Turbidity Clear (12/10/19 8:34 PM) Clear 12/11/2019 [facility] URINE AND STOOL UA Spec Grav 1.010 <=1.030 12/11/2019 [facility] URINE AND STOOL UA pH 7.5 5.0 - 8.0 12/11/2019 [facility] URINE AND STOOL UA Protein Negative mg/dL Negative mg/dL 12/11/2019 [facility] URINE AND STOOL UA Glucose Negative mg/dL Negative mg/dL 12/11/2019 [facility] URINE AND STOOL UA Ketones Negative mg/dL Negative mg/dL 12/11/2019 [facility] URINE AND STOOL UA Bili Negative *NA* (12/10/19 8:34 PM) Negative 12/11/2019 [facility] URINE AND STOOL UA Blood Negative (12/10/19 8:34 PM) Negative 12/11/2019 [facility] URINE AND STOOL UA Urobilinogen 0.2 0.1 - 1.0 12/11/2019 [facility] URINE AND STOOL UA Nitrite Negative (12/10/19 8:34 PM) Negative 12/11/2019 [facility] URINE AND STOOL UA Leuk Est Negative (12/10/19 8:34 PM) Negative 12/11/2019 [facility] URINE AND STOOL UA Sq Epi Few /LPF Few /LPF 12/11/2019 [facility] URINE AND STOOL UA WBC 0-2 /HPF None Seen /HPF 12/11/2019 [facility] URINE AND STOOL UA RBC 0-2 /HPF 0 - 2 12/11/2019 [facility] URINE AND STOOL UA Bacteria Occasional /HPF None Seen /HPF 12/11/2019 [facility] URINE AND STOOL UA Mucus None Seen (12/10/19 8:34 PM) None Seen 12/11/2019 [facility] URINE AND STOOL UA Uric Ac Madeleine Rare /HPF None Seen /HPF 12/11/2019 [facility] URINE CHEM U Preg Negat juanita (12/10/19 8:34 PM) Negative 12/11/2019 [facility] MOLECULAR DIAGNOSTIC Source APTIMA Vaginal *NA* (12/08/19 11:58 PM) 12/09/2019 [facility] MOLECULAR DIAGNOSTIC C trachomatis b y Amp Det (APTIMA) Negative *NA* (12/08/19 11:58 PM) Negative 12/09/2019 [facility] MOLECULAR DIAGNOSTIC N gonorrhea by Amp Det (APTIMA) Negative *NA* (12/08/19 11:58 PM) Negative 12/09/2019 [facility] CHEM PANEL Glucose Lvl 128 70 - 99 12/09/2019 [facility] CHEM PANEL Creatinine Lvl 0.74 0.50 - 1.40 12/09/2019 [facility] CHEM PANEL Sodium Lvl 143 135 - 145 12/09/2019 [facility] CHEM PANEL Potassium Lvl 4.7 3.5 - 5.1 12/09/2019 [facility] CHEM PANEL Chloride Lvl 109 95 - 109 12/09/2019 [facility] CHEM PANEL CO2 23 24 - 32 12/09/2019 [facility] CHEM PANEL Calcium Lvl 8.7 8.5 - 10.5 12/09/2019 [facility] CHEM PANEL Total Protein 7.4 6.4 - 8.4 12/09/2019 [facility] CHEM PANEL Albumin Lvl 3.7 3.5 - 5.0 12/09/2019 [facility] CHEM PANEL ALT 25 0 - 65 12/09/2019 [facility] CHEM PANEL AST 14 0 - 37 12/09/2019 [facility] CHEM PANEL Alk Phos 76 39 - 136 12/09/2019 [facility] CHEM PANEL Bili Total 0.2 0.2 - 1.3 12/09/2019 [facility] CHEM PANEL AGAP 15.7 10.0 - 20.0 12/09/2019 [facility] CHEM PANEL Globulin 3.7 2.7 - 4.2 12/09/2019 [facility] CHEM PANEL A/G Ratio 1.0 0.7 - 1.6 12/09/2019 [facility] CHEM PANEL eGFR 109 12/09/2019 Result Comment: The eGFR is calculated using the CKD-EPI formula. In most young, healthy individuals the eGFR will be >90 mL/min/1.73m2. The eGFR declines with age. An eGFR of 60-89 may be normal in some populations, particularly the elderly, for whom the CKD-EPI formula has not been extensively validated. Use of the eGFR is not recommended in the following populations:

Individuals with unstable creatinine concentrations, including patients and those with serious co-morbid conditions.

Patients with extremes in muscle mass or diet.

The data above are obtained from the National Kidney Disease Education Program (NKDEP) which additionally recommends that when the eGFR is used in patients with extremes of body mass index for purposes of drug dosing, the eGFR should be multiplied by the estimated BMI. [facility] CHEM PANEL BUN 21 7 - 22 12/09/2019 [facility] CHEM PANEL B/C Ratio 28 6 - 25 12/09/2019 [facility] CHEM PANEL Lipase Lvl 121 73 - 393 12/09/2019 [facility] CHEM PANEL Lactic Acid Lvl 1.1 0.5 - 2.2 12/09/2019 [facility] HEMATOLOGY WBC 12.3 3.7 - 10.4 12/09/2019 [facility] HEMATOLOGY RBC 5.03 4.20 - 5.40 12/09/2019 [facility] HEMATOLOGY Hgb 14.7 12.0 - 16.0 12/09/2019 [facility] HEMATOLOGY Hct 44.6 36.0 - 48.0 12/09/2019 [facility] HEMATOLOGY MCV 88.6 80.0 - 98.0 12/09/2019 [facility] MCH 29.3 27.0 - 31.0 12/09/2019 [facility] MCHC 33.1 32.0 - 36.0 12/09/2019 [facility] RDW 14.2 11.5 - 14.5 12/09/2019 [facility] Platelet 281 133 - 450 12/09/2019 [facility] MPV 8.6 7.4 - 10.4 12/09/2019 [facility] Segs 86.6 45.0 - 75.0 12/09/2019 [facility] Lymphocytes 9.8 20.0 - 40.0 12/09/2019 [facility] HEMATOLOGY Monocytes 2.6 2.0 - 12.0 12/09/2019 [facility] HEMATOLOGY Eosinophils 0.7 0.0 - 4.0 12/09/2019 [facility] HEMATOLOGY Basophils 0.4 0.0 - 1.0 12/09/2019 [facility] HEMATOLOGY Neutrophils # 10.6 1.5 - 8.1 12/09/2019 [facility] Lymphocytes # 1.2 1.0 - 5.5 12/09/2019 [facility] HEMATOLOGY Monocytes # 0.3 0.0 - 0.8 12/09/2019 [facility] HEMATOLOGY Eosinophils # 0.1 0.0 - 0.5 12/09/2019 [facility] URINE AND STOOL UA Color Light Yellow (12/08/19 9:49 PM) Yellow 12/09/2019 [facility] URINE AND STOOL UA Turbidity Hazy 12/09/2019 [facility] URINE AND STOOL UA Spec Grav 1.015 <=1.030 12/09/2019 [facility] URINE AND STOOL UA pH 7.5 5.0 - 8.0 12/09/2019 [facility] URINE AND STOOL UA Protein Negative (12/08/19 9:49 PM) Negative 12/09/2019 [facility] URINE AND STOOL UA Glucose Negative (12/08/19 9:49 PM) Negative 12/09/2019 [facility] URINE AND STOOL UA Ketones Negative (12/08/19 9:49 PM) Negative 12/09/2019 [facility] URINE AND STOOL UA Bili Negative (12/08/19 9:49 PM) Negative 12/09/2019 [facility] URINE AND STOOL UA Blood Negative (12/08/19 9:49 PM) Negative 12/09/2019 [facility] URINE AND STOOL UA Urobilinogen 0.2 0.1 - 1.0 12/09/2019 [facility] URINE AND STOOL UA Nitrite Negative (12/08/19 9:49 PM) Negative 12/09/2019 [facility] URINE AND STOOL UA Leuk Est Negative (12/08/19 9:49 PM) Negative 12/09/2019 [facility] URINE AND STOOL UA Sq Epi Few /LPF Few /LPF 12/09/2019 [facility] URINE AND STOOL UA WBC 0-2 /HPF None Seen /HPF 12/09/2019 [facility] URINE AND STOOL UA RBC 0-2 /HPF 0 - 2 12/09/2019 [facility] URINE AND STOOL UA Bacteria Occasional /HPF None Seen /HPF 12/09/2019 [facility] URINE AND STOOL UA Mucus None Seen (12/08/19 9:49 PM) None Seen 12/09/2019 [facility] URINE AND STOOL UA Amorph Madeleine Moderate /HPF None Seen /HPF 12/09/2019 [facility] URINE CHEM U Preg Negat juanita (12/08/19 9:49 PM) Negative 12/09/2019 [facility] CHEM PANEL B/C Ratio 24 6 - 25 11/24/2016 [facility] CHEM PANEL AGAP 10.8 10.0 - 20.0 11/24/2016 [facility] CHEM PANEL Chloride Lvl 111 95 - 109 11/24/2016 [facility] CHEM PANEL Potassium Lvl 3.8 3.5 - 5.1 11/24/2016 [facility] CHEM PANEL Sodium Lvl 144 135 - 145 11/24/2016 [facility] CHEM PANEL Calcium Lvl 8.3 8.5 - 10.5 11/24/2016 [facility] CHEM PANEL Bili Total 1.1 0.2 - 1.3 11/24/2016 [facility] CHEM PANEL A/G Ratio 0.9 0.7 - 1.6 11/24/2016 [facility] CHEM PANEL Alk Phos 50 39 - 136 11/24/2016 [facility] CHEM PANEL Total Protein 5.8 6.4 - 8.4 11/24/2016 [facility] CHEM PANEL Globulin 3.0 2.7 - 4.2 11/24/2016 [facility] CHEM PANEL eGFR 134 11/24/2016 Result Comment: The eGFR is calculated using the CKD-EPI formula. In most young, healthy individuals the eGFR will be >90 mL/min/1.73m2. The eGFR declines with age. An eGFR of 60-89 may be normal in some populations, particularly the elderly, for whom the CKD-EPI formula has not been extensively validated. Use of the eGFR is not recommended in the following populations:

Individuals with unstable creatinine concentrations, including patients and those with serious co-morbid conditions.

Patients with extremes in muscle mass or diet.

The data above are obtained from the National Kidney Disease Education Program (NKDEP) which additionally recommends that when the eGFR is used in patients with extremes of body mass index for purposes of drug dosing, the eGFR should be multiplied by the estimated BMI. [facility] CHEM PANEL Creatinine Lvl 0.49 0.50 - 1.40 11/24/2016 [facility] CHEM PANEL BUN 12 7 - 22 11/24/2016 [facility] CHEM PANEL Glucose Lvl 90 70 - 99 11/24/2016 [facility] CHEM PANEL AST 35 0 - 37 11/24/2016 [facility] CHEM PANEL CO2 26 24 - 32 11/24/2016 [facility] CHEM PANEL ALT 51 0 - 65 11/24/2016 [facility] CHEM PANEL Albumin Lvl 2.8 3.5 - 5.0 11/24/2016 [facility] HEMATOLOGY MPV 7.8 7.4 - 10.4 11/24/2016 [facility] HEMATOLOGY MCHC 33.0 32.0 - 36.0 11/24/2016 [facility] HEMATOLOGY RDW 14.8 11.5 - 14.5 11/24/2016 [facility] HEMATOLOGY Platelet 215 133 - 450 11/24/2016 [facility] HEMATOLOGY MCV 80.3 80.0 - 98.0 11/24/2016 [facility] HEMATOLOGY MCH 26.5 27.0 - 31.0 11/24/2016 [facility] HEMATOLOGY RBC 4.21 4.20 - 5.40 11/24/2016 [facility] HEMATOLOGY Hgb 11.2 12.0 - 16.0 11/24/2016 [facility] HEMATOLOGY Hct 33.8 36.0 - 48.0 11/24/2016 [facility] HEMATOLOGY WBC 7.2 3.7 - 10.4 11/24/2016 [facility] HEMATOLOGY Eosinophils # 0.2 0.0 - 0.5 11/24/2016 [facility] HEMATOLOGY Basophils # 0.1 0.0 - 0.2 11/24/2016 [facility] HEMATOLOGY Eosinophils 2.4 0.0 - 4.0 11/24/2016 [facility] HEMATOLOGY Basophils 1.1 0.0 - 1.0 11/24/2016 [facility] HEMATOLOGY Segs-Bands # 4.1 1.5 - 8.1 11/24/2016 [facility] HEMATOLOGY Lymphocytes # 2.2 1.0 - 5.5 11/24/2016 [facility] HEMATOLOGY Monocytes # 0.7 0.0 - 0.8 11/24/2016 [facility] HEMATOLOGY Segs 56.1 45.0 - 75.0 11/24/2016 [facility] HEMATOLOGY Lymphocytes 30.2 20.0 - 40.0 11/24/2016 [facility] HEMATOLOGY Monocytes 10.2 2.0 - 12.0 11/24/2016 [facility] CHEM PANEL Phosphorus 2.2 2.5 - 4.5 11/23/2016 [facility] ELECTROLYTES Potassium Lvl 3.4 3.5 - 5.1 11/23/2016 [facility] BODY FLUIDS Clarity CSF [place] (11/23/16 9:46 AM) Clear 11/23/2016 [facility] BODY FLUIDS Color CSF [place] rless (11/23/16 9:46 AM) Colorless 11/23/2016 [facility] FLUIDS Tube Num CSF 1 11/23/2016 [facility] BODY FLUIDS RBC CSF 185 0 - 03 11/23/2016 [facility] BODY FLUIDS Supernat CSF [place] rless (11/23/16 9:46 AM) Colorless 11/23/2016 [facility] BODY FLUIDS WBC CSF 2 0 - 53 11/23/2016 [facility] BACTERIAL - SEROLOGY Source Strep Cerebral Spinal Fluid 11/23/2016 [facility] BACTERIAL - SEROLOGY Strep pneumonia e Ag Negative (11/23/16 9:00 AM) Negative 11/23/2016 [facility] BODY FLUIDS Lactic Acid CSF 1.4 0.6 - 2.2 11/23/2016 [facility] BODY FLUIDS RBC CSF 58 0 - 03 11/23/2016 [facility] BODY FLUIDS WBC CSF 1 0 - 53 11/23/2016 [facility] BODY FLUIDS Tube Num CSF 4 11/23/2016 [facility] BODY FLUIDS Clarity CSF [place] (11/23/16 9:00 AM) Clear 11/23/2016 [facility] BODY FLUIDS Color CSF [place] (11/23/16 9:00 AM) Colorless 11/23/2016 [facility] BODY FLUIDS Supernat CSF [place] rless (11/23/16 9:00 AM) Colorless 11/23/2016 [facility] BODY FLUIDS Glucose CSF 63 45 - 80 11/23/2016 [facility] BODY FLUIDS Protein CSF 33 15 - 45 11/23/2016 [facility] FUNGAL - SEROLOGY Crypto Ag CSF Negative (11/23/16 9:00 AM) Negative 11/23/2016 [facility] IMMUNOLOGY VDRL Scr CSF Non R eactive (11/23/16 9:00 AM) Non Reactive 11/23/2016 [facility] MOLECULAR DIAGNOSTIC Source CMV Cerebral Spinal Fluid 11/23/2016 [facility] [place] MOLECULAR DIAGNOSTIC CMV PCR Negative (11/23/16 9:00 AM) Negative 11/23/2016 [facility] MOLECULAR DIAGNOSTIC Source HSV Cerebral Spinal Fluid 11/23/2016 [facility] [place] MOLECULAR DIAGNOSTIC HSV 2 by PCR Not Performed 2 (11/23/16 9:00 AM) Negative 11/23/2016 Result Comment: CSF contains less than 5 WBC'S and has a normal Protein level. [facility] MOLECULAR DIAGNOSTIC HSV 1 by PCR Not Performed 1 (11/23/16 9:00 AM) Negative 11/23/2016 Result Comment: CSF contains less than 5 WBC'S and has a normal Protein level. [facility] VIRAL - SEROLOGY Enterovirus PCR CSF Negative (11/23/16 9:00 AM) Negative 11/23/2016 [facility] CHEM PANEL Phosphorus 0.7 2.5 - 4.5 11/23/2016 Result Comment: Critical Result(s) isaacs d to Ivania Rivera at 11/23/2016 04:11 by hy. Read back OK. [facility] CHEM PANEL Magnesium Lvl 2.1 1.8 - 2.4 11/23/2016 [facility] PARATHYROID PROFILE Ca Norm WB 1.08 1.05 - 1.25 11/23/2016 [facility] PARATHYROID PROFILE Ca Ion WB 1.08 1.05 - 1.25 11/23/2016 [facility] CHEM PANEL B/C Ratio 20 6 - 25 11/23/2016 [facility] CHEM PANEL AGAP 11.4 10.0 - 20.0 11/23/2016 [facility] CHEM PANEL A/G Ratio 0.9 0.7 - 1.6 11/23/2016 [facility] CHEM PANEL Globulin 3.0 2.7 - 4.2 11/23/2016 [facility] CHEM PANEL eGFR 138 11/23/2016 Result Comment: The eGFR is calculated using the CKD-EPI formula. In most young, healthy individuals the eGFR will be >90 mL/min/1.73m2. The eGFR declines with age. An eGFR of 60-89 may be normal in some populations, particularly the elderly, for whom the CKD-EPI formula has not been extensively validated. Use of the eGFR is not recommended in the following populations:

Individuals with unstable creatinine concentrations, including patients and those with serious co-morbid conditions.

Patients with extremes in muscle mass or diet.

The data above are obtained from the National Kidney Disease Education Program (NKDEP) which additionally recommends that when the eGFR is used in patients with extremes of body mass index for purposes of drug dosing, the eGFR should be multiplied by the estimated BMI. [facility] CHEM PANEL Albumin Lvl 2.7 3.5 - 5.0 11/23/2016 [facility] CHEM PANEL AST 13 0 - 37 11/23/2016 [facility] CHEM PANEL ALT 27 0 - 65 11/23/2016 [facility] CHEM PANEL Glucose Lvl 96 70 - 99 11/23/2016 [facility] CHEM PANEL CO2 27 24 - 32 11/23/2016 [facility] CHEM PANEL Creatinine Lvl 0.45 0.50 - 1.40 11/23/2016 [facility] [employer] CHEM PANEL Chloride Lvl 110 95 - 109 11/23/2016 [facility] CHEM PANEL Potassium Lvl 3.4 3.5 - 5.1 11/23/2016 [facility] [employer] CHEM PANEL Calcium Lvl 7.9 8.5 - 10.5 11/23/2016 [facility] [employer] CHEM PANEL Sodium Lvl 145 135 - 145 11/23/2016 [facility] CHEM PANEL BUN 9 7 - 22 11/23/2016 [facility] CHEM PANEL Alk Phos 46 39 - 136 11/23/2016 [facility] CHEM PANEL Bili Total 0.7 0.2 - 1.3 11/23/2016 [facility] CHEM PANEL Total Protein 5.7 6.4 - 8.4 11/23/2016 [facility] HEMATOLOGY Hct 35.4 36.0 - 48.0 11/23/2016 [facility] HEMATOLOGY Hgb 11.3 12.0 - 16.0 11/23/2016 [facility] HEMATOLOGY RBC 4.24 4.20 - 5.40 11/23/2016 [facility] HEMATOLOGY MCV 83.5 80.0 - 98.0 11/23/2016 [facility] HEMATOLOGY MCH 26.7 27.0 - 31.0 11/23/2016 [facility] HEMATOLOGY WBC 8.2 3.7 - 10.4 11/23/2016 [facility] HEMATOLOGY MPV 8.4 7.4 - 10.4 11/23/2016 [facility] HEMATOLOGY Platelet 196 133 - 450 11/23/2016 [facility] HEMATOLOGY RDW 14.6 11.5 - 14.5 11/23/2016 [facility] HEMATOLOGY MCHC 32.0 32.0 - 36.0 11/23/2016 [facility] HEMATOLOGY Eosinophils # 0.1 0.0 - 0.5 11/23/2016 [facility] HEMATOLOGY Monocytes # 0.9 0.0 - 0.8 11/23/2016 [facility] HEMATOLOGY Basophils # 0.1 0.0 - 0.2 11/23/2016 [facility] HEMATOLOGY Lymphocytes # 2.3 1.0 - 5.5 11/23/2016 [facility] HEMATOLOGY Lymphocytes 28.6 20.0 - 40.0 11/23/2016 [facility] HEMATOLOGY Segs 58.1 45.0 - 75.0 11/23/2016 [facility] HEMATOLOGY Plt Morph Delaney l (11/23/16 2:41 AM) 11/23/2016 [facility] HEMATOLOGY RBC Morph Delaney l (11/23/16 2:41 AM) 11/23/[address] [facility] Segs-Bands # 4.8 1.5 - 8.1 11/23/2016 [facility] HEMATOLOGY Basophils 0.8 0.0 - 1.0 11/23/2016 [facility] HEMATOLOGY Eosinophils 1.7 0.0 - 4.0 11/23/2016 [facility] HEMATOLOGY Monocytes 10.8 2.0 - 12.0 11/23/2016 [facility] ENDOCRINOLOGY Cortisol 4.7 11/22/2016 [facility] ENDOCRINOLOGY Prolactin Lvl 54 .6 11/22/2016 [facility] HEMATOLOGY PTT 28.7 22.9 - 35.8 11/22/2016 [facility] HEMATOLOGY PT 14.1 12.0 - 14.7 11/22/2016 [facility] HEMATOLOGY INR 1.07 0.85 - 1.17 11/22/2016 [facility] TOXICOLOGY Vanco Lvl 7.7 11/22/2016 [facility] ELECTROLYTES AGAP 11.4 10.0 - 20.0 11/22/2016 [facility] ELECTROLYTES BUN 11 7 - 22 11/22/2016 [facility] ELECTROLYTES Sodium Lvl 143 135 - 145 11/22/2016 [facility] ELECTROLYTES CO2 32 24 - 32 11/22/2016 [facility] ELECTROLYTES Chloride Lvl 103 95 - 109 11/22/2016 [facility] ELECTROLYTES Calcium Lvl 7.9 8.5 - 10.5 11/22/2016 [facility] ELECTROLYTES Glucose Lvl 103 70 - 99 11/22/2016 [facility] ELECTROLYTES eGFR 135 11/22/2016 Result Comment: The eGFR is calculated using the CKD-EPI formula. In most young, healthy individuals the eGFR will be >90 mL/min/1.73m2. The eGFR declines with age. An eGFR of 60-89 may be normal in some populations, particularly the elderly, for whom the CKD-EPI formula has not been extensively validated. Use of the eGFR is not recommended in the following populations:

Individuals with unstable creatinine concentrations, including patients and those with serious co-morbid conditions.

Patients with extremes in muscle mass or diet.

The data above are obtained from the National Kidney Disease Education Program (NKDEP) which additionally recommends that when the eGFR is used in patients with extremes of body mass index for purposes of drug dosing, the eGFR should be multiplied by the estimated BMI. [facility] ELECTROLYTES Creatinine Lvl 0.4 8 0.50 - 1.40 11/22/2016 [facility] HEMATOLOGY Platelet 238 133 - 450 11/22/2016 [facility] HEMATOLOGY MPV 8.6 7.4 - 10.4 11/22/2016 [facility] HEMATOLOGY Hgb 12.0 12.0 - 16.0 11/22/2016 [facility] HEMATOLOGY MCH 26.3 27.0 - 31.0 11/22/2016 [facility] HEMATOLOGY RBC 4.55 4.20 - 5.40 11/22/2016 [facility] HEMATOLOGY WBC 11.8 3.7 - 10.4 11/22/2016 [facility] HEMATOLOGY MCHC 32.0 32.0 - 36.0 11/22/2016 [facility] HEMATOLOGY Hct 37.4 36.0 - 48.0 11/22/2016 [facility] HEMATOLOGY RDW 14.4 11.5 - 14.5 11/22/2016 [facility] HEMATOLOGY MCV 82.2 80.0 - 98.0 11/22/2016 [facility] HEMATOLOGY Basophils # 0.1 0.0 - 0.2 11/22/2016 [facility] HEMATOLOGY Monocytes # 1.0 0.0 - 0.8 11/22/2016 [facility] HEMATOLOGY Eosinophils # 0.1 0.0 - 0.5 11/22/2016 [facility] HEMATOLOGY Lymphocytes # 2.0 1.0 - 5.5 11/22/2016 [facility] HEMATOLOGY Basophils 0.6 0.0 - 1.0 11/22/2016 [facility] HEMATOLOGY Eosinophils 0.7 0.0 - 4.0 11/22/2016 [facility] HEMATOLOGY Monocytes 8.6 2.0 - 12.0 11/22/2016 [facility] HEMATOLOGY Segs-Bands # 8.6 1.5 - 8.1 11/22/2016 [facility] HEMATOLOGY RBC Morph Delaney l (11/22/16 3:09 AM) 11/22/2016 [facility] HEMATOLOGY Segs 73.1 45.0 - 75.0 11/22/2016 [facility] HEMATOLOGY Lymphocytes 17.0 20.0 - 40.0 11/22/2016 [facility] HEMATOLOGY Plt Morph Delaney l (11/22/16 3:09 AM) 11/22/2016 [facility] BACTERIAL - SEROLOGY MRSA by PCR Negative (11/21/16 6:15 PM) 11/21/2016 [facility] CARDIAC ENZYMES Total CK 83 12 - 191 11/21/2016 [facility] CHEM PANEL Ammonia 55.0 <=45.0 uMol/L 11/21/2016 [facility] TOXICOLOGY Ethanol Lvl <3 11/21/2016 [facility] TOXICOLOGY Etoh (%) <0.003 11/21/2016 [facility] TOXICOLOGY Acetaminoph Lvl <2 10 - 20 11/21/2016 [facility] TOXICOLOGY Salicylate Lvl 4.7 0.0 - 30.0 11/21/2016 [facility] TOXICOLOGY Vanco Tr TND 1130 11/21/2016 [facility] TOXICOLOGY Vanco Tr 9.4 11/21/2016 [facility] CHEM PANEL A/G Ratio 1.1 0.7 - 1.6 11/21/2016 [facility] CHEM PANEL Bili Total 0.4 0.2 - 1.3 11/21/2016 [facility] CHEM PANEL Globulin 3.0 2.7 - 4.2 11/21/2016 [facility] CHEM PANEL Total Protein 6.4 6.4 - 8.4 11/21/2016 [facility] CHEM PANEL Alk Phos 59 39 - 136 11/21/2016 [facility] CHEM PANEL AST 23 0 - 37 11/21/2016 [facility] CHEM PANEL ALT 45 0 - 65 11/21/2016 [facility] CHEM PANEL B/C Ratio 17 6 - 25 11/21/2016 [facility] CHEM PANEL Albumin Lvl 3.4 3.5 - 5.0 11/21/2016 [facility] HEMATOLOGY Bands 5.0 0.0 - 11.0 11/21/2016 [facility] HEMATOLOGY Myelocytes 1.0 <=0.0 % 11/21/2016 [facility] HEMATOLOGY Metamyelocytes 1.0 0.0 - 1.0 11/21/2016 [facility] HEMATOLOGY Plt Morph Delaney l (11/21/16 6:26 AM) 11/21/2016 [facility] HEMATOLOGY Atypical Lymphs 0.0 <=0.0 % 11/21/2016 [facility] HEMATOLOGY RBC Morph Delaney l (11/21/16 6:26 AM) 11/21/2016 [facility] HEMATOLOGY NRBC 2 11/21/2016 [facility] CHEM PANEL Lactic Acid Lvl 0.4 0.5 - 2.2 11/20/2016 [facility] CHEM PANEL Lactic Acid Lvl 3.5 0.5 - 2.2 11/20/2016 [facility] CHEM PANEL Phosphorus 4.5 2.5 - 4.5 11/20/2016 [facility] CHEM PANEL Magnesium Lvl 2.1 1.8 - 2.4 11/20/2016 [facility] CHEM PANEL Lactic Acid WB 2.8 0.5 - 2.2 11/20/2016 [facility] DRUG SCREEN UDS Note See Note (11/20/16 8:53 AM) 11/20/2016 [facility] DRUG SCREEN U Opiate Scr Nega tive *NA* (11/20/16 8:53 AM) Negative 11/20/2016 [facility] DRUG SCREEN U Cannab Scr Nega tive *NA* (11/20/16 8:53 AM) Negative 11/20/2016 [facility] DRUG SCREEN U Phencyc Scr Nega tive *NA* (11/20/16 8:53 AM) Negative 11/20/2016 [facility] DRUG SCREEN U Benzodia Scr Posi tive *ABN* (11/20/16 8:53 AM) Negative 11/20/2016 [facility] DRUG SCREEN U Cocaine Scr Nega tive *NA* (11/20/16 8:53 AM) Negative 11/20/2016 [facility] DRUG SCREEN U Amph Scr Nega tive *NA* (11/20/16 8:53 AM) Negative 11/20/2016 [facility] DRUG SCREEN U Venessa Scr Nega tive *NA* (11/20/16 8:53 AM) Negative 11/20/2016 [facility] TOXICOLOGY Acetaminoph Lvl <2 10 - 20 11/20/2016 [facility] TOXICOLOGY Salicylate Lvl <1.7 0.0 - 30.0 11/20/2016 [facility] URINE AND STOOL UA RBC 1 0 - 2 11/20/2016 [facility] URINE AND STOOL UA WBC 1 0 - 5 11/20/2016 [facility] URINE AND STOOL UA Sq Epi Occasional /LPF Few /LPF 11/20/2016 [facility] URINE AND STOOL UA Amorph Madeleine Occasional /HPF None Seen /HPF 11/20/2016 [facility] [place] URINE AND STOOL UA Mucus Few /LPF None Seen /LPF 11/20/2016 [facility] URINE AND STOOL UA Hyal Cast 2 0 - 2 11/20/2016 [facility] URINE AND STOOL UA Blood Negative (11/20/16 8:53 AM) Negative 11/20/2016 [facility] URINE AND STOOL UA Bili Negative *NA* (11/20/16 8:53 AM) Negative 11/20/2016 [facility] URINE AND STOOL UA Nitrite Negative (11/20/16 8:53 AM) Negative 11/20/2016 [facility] URINE AND STOOL UA Leuk Est Negative (11/20/16 8:53 AM) Negative 11/20/2016 [facility] URINE AND STOOL UA Urobilinogen <=1.0 mg/dL 0.1 - 1.0 11/20/2016 [facility] [place] URINE AND STOOL UA Ketones Negative 11/20/2016 [facility] URINE AND STOOL UA Glucose Negative mg/dL Negative mg/dL 11/20/2016 [facility] [place] URINE AND STOOL UA Protein 100 mg/dL Negative mg/dL 11/20/2016 [facility] URINE AND STOOL UA pH 5.0 5.0 - 8.0 11/20/2016 [facility] URINE AND STOOL UA Spec Grav 1.014 <=1.030 11/20/2016 [facility] URINE AND STOOL UA Turbidity Slight *ABN* (11/20/16 8:53 AM) Clear 11/20/2016 [facility] URINE AND STOOL UA Color Yellow *NA* (11/20/16 8:53 AM) Yellow 11/20/2016 [facility] URINE CHEM U Preg Negat juanita (11/20/16 8:53 AM) Negative 11/20/2016 [facility] URINE AND STOOL UA Urobilinogen <=1.0 mg/dL 0.1 - 1.0 05/12/2016 [facility] URINE AND STOOL UA RBC 1 0 - 2 05/12/2016 [facility] URINE AND STOOL UA WBC 1 0 - 5 05/12/2016 [facility] URINE AND STOOL UA Sq Epi Occasional /LPF Few /LPF 05/12/2016 [facility] URINE AND STOOL UA Nitrite Negative (05/12/16 1:15 PM) Negative 05/12/2016 [facility] URINE AND STOOL UA Ketones Negative mg/dL Negative mg/dL 05/12/2016 [facility] URINE AND STOOL UA Leuk Est Negative (05/12/16 1:15 PM) Negative 05/12/2016 [facility] URINE AND STOOL UA Blood Negative (05/12/16 1:15 PM) Negative 05/12/2016 [facility] URINE AND STOOL UA Bili Negative *NA* (05/12/16 1:15 PM) Negative 05/12/2016 [facility] URINE AND STOOL UA Turbidity Clear (05/12/16 1:15 PM) Clear 05/12/2016 [facility] URINE AND STOOL UA Color Light Yellow *NA* (05/12/16 1:15 PM) Yellow 05/12/2016 [facility] URINE AND STOOL UA pH 6.0 5.0 - 8.0 05/12/2016 [facility] URINE AND STOOL UA Spec Grav 1.014 <=1.030 05/12/2016 [facility] URINE AND STOOL UA Glucose Negative mg/dL Negative mg/dL 05/12/2016 [facility] URINE AND STOOL UA Protein Negative mg/dL Negative mg/dL 05/12/2016 [facility] URINE CHEM U Preg Negat juanita (05/12/16 1:15 PM) Negative 05/12/2016 [facility] CARDIAC ENZYMES CK MB Index <0.7 0.0 - 2.5 05/12/2016 [facility] CARDIAC ENZYMES Troponin-I <0.02 0.00 - 0.40 05/12/2016 [facility] CARDIAC ENZYMES CK MB <0.5 0.5 - 3.6 05/12/2016 [facility] CARDIAC ENZYMES Total CK 70 12 - 191 05/12/2016 [facility] CHEM PANEL eGFR 124 05/12/2016 Result Comment: The eGFR is calculated using the CKD-EPI formula. In most young, healthy individuals the eGFR will be >90 mL/min/1.73m2. The eGFR declines with age. An eGFR of 60-89 may be normal in some populations, particularly the elderly, for whom the CKD-EPI formula has not been extensively validated. Use of the eGFR is not recommended in the following populations:

Individuals with unstable creatinine concentrations, including patients and those with serious co-morbid conditions.

Patients with extremes in muscle mass or diet.

The data above are obtained from the National Kidney Disease Education Program (NKDEP) which additionally recommends that when the eGFR is used in patients with extremes of body mass index for purposes of drug dosing, the eGFR should be multiplied by the estimated BMI. [facility] CHEM PANEL Glucose Lvl 92 70 - 99 05/12/2016 [facility] CHEM PANEL BUN 16 7 - 22 05/12/2016 [facility] CHEM PANEL Creatinine Lvl 0.63 0.50 - 1.40 05/12/2016 [facility] CHEM PANEL Alk Phos 65 39 - 136 05/12/2016 [facility] CHEM PANEL Bili Total 0.2 0.2 - 1.3 05/12/2016 [facility] CHEM PANEL ALT 27 0 - 65 05/12/2016 [facility] CHEM PANEL CO2 31 24 - 32 05/12/2016 [facility] CHEM PANEL Total Protein 6.7 6.4 - 8.4 05/12/2016 [facility] CHEM PANEL Albumin Lvl 3.5 3.5 - 5.0 05/12/2016 [facility] CHEM PANEL Chloride Lvl 104 95 - 109 05/12/2016 [facility] CHEM PANEL Calcium Lvl 8.9 8.5 - 10.5 05/12/2016 [facility] CHEM PANEL AGAP 6.7 10.0 - 20.0 05/12/2016 [facility] CHEM PANEL B/C Ratio 25 6 - 25 05/12/2016 [facility] CHEM PANEL AST 17 0 - 37 05/12/2016 [facility] CHEM PANEL Globulin 3.2 2.7 - 4.2 05/12/2016 [facility] CHEM PANEL A/G Ratio 1.1 0.7 - 1.6 05/12/2016 [facility] CHEM PANEL Sodium Lvl 137 135 - 145 05/12/2016 [facility] CHEM PANEL Potassium Lvl 4.7 3.5 - 5.1 05/12/2016 [facility] CHEM PANEL Phosphorus 3.5 2.5 - 4.5 05/12/2016 [facility] CHEM PANEL Magnesium Lvl 1.8 1.8 - 2.4 05/12/2016 [facility] HEMATOLOGY Eosinophils # 0.3 0.0 - 0.5 05/12/2016 [facility] HEMATOLOGY Basophils # 0.1 0.0 - 0.2 05/12/2016 [facility] HEMATOLOGY Lymphocytes # 3.1 1.0 - 5.5 05/12/2016 [facility] HEMATOLOGY Monocytes # 0.6 0.0 - 0.8 05/12/2016 [facility] HEMATOLOGY Basophils 0.5 0.0 - 1.0 05/12/2016 [facility] HEMATOLOGY Segs-Bands # 5.4 1.5 - 8.1 05/12/2016 [facility] HEMATOLOGY Eosinophils 3.0 0.0 - 4.0 05/12/2016 [facility] HEMATOLOGY Lymphocytes 33.0 20.0 - 40.0 05/12/2016 [facility] HEMATOLOGY Monocytes 6.2 2.0 - 12.0 05/12/2016 [facility] HEMATOLOGY Segs 57.3 45.0 - 75.0 05/12/2016 [facility] HEMATOLOGY D-Dimer 0.35 05/12/2016 [facility] HEMATOLOGY PT 13.2 12.0 - 14.7 05/12/2016 [facility] HEMATOLOGY INR 0.97 0.85 - 1.17 05/12/2016 [facility] HEMATOLOGY Platelet 296 133 - 450 05/12/2016 [facility] HEMATOLOGY MPV 9.1 7.4 - 10.4 05/12/2016 [facility] HEMATOLOGY MCHC 33.8 32.0 - 36.0 05/12/2016 [facility] HEMATOLOGY RDW 14.4 11.5 - 14.5 05/12/2016 [facility] HEMATOLOGY MCH 28.5 27.0 - 31.0 05/12/2016 [facility] HEMATOLOGY Hct 39.8 36.0 - 48.0 05/12/2016 [facility] HEMATOLOGY Hgb 13.5 12.0 - 16.0 05/12/2016 [facility] HEMATOLOGY MCV 84.2 80.0 - 98.0 05/12/2016 [facility] HEMATOLOGY WBC 9.5 3.7 - 10.4 05/12/2016 [facility] HEMATOLOGY RBC 4.73 4.20 - 5.40 05/12/2016 [facility] IMMUNOLOGY CDC HIV 4th GEN Negat juanita (03/28/16 3:40 PM) Negative 03/28/2016 [facility] CARDIAC ENZYMES CK MB Index <1.3 0.0 - 2.5 03/28/2016 [facility] CARDIAC ENZYMES Troponin-I <0.02 0.00 - 0.40 03/28/2016 [facility] CARDIAC ENZYMES CK MB <0.5 0.5 - 3.6 03/28/2016 [facility] CARDIAC ENZYMES Total CK 39 12 - 191 03/28/2016 [facility] CARDIAC ENZYMES BNP 77 <=100 pg/mL 03/28/2016 [facility] CHEM PANEL eGFR 123 03/28/2016 Result Comment: The eGFR is calculated using the CKD-EPI formula. In most young, healthy individuals the eGFR will be >90 mL/min/1.73m2. The eGFR declines with age. An eGFR of 60-89 may be normal in some populations, particularly the elderly, for whom the CKD-EPI formula has not been extensively validated. Use of the eGFR is not recommended in the following populations:

Individuals with unstable creatinine concentrations, including patients and those with serious co-morbid conditions.

Patients with extremes in muscle mass or diet.

The data above are obtained from the National Kidney Disease Education Program (NKDEP) which additionally recommends that when the eGFR is used in patients with extremes of body mass index for purposes of drug dosing, the eGFR should be multiplied by the estimated BMI. [facility] CHEM PANEL Chloride Lvl 106 95 - 109 03/28/2016 [facility] CHEM PANEL Creatinine Lvl 0.65 0.50 - 1.40 03/28/2016 [facility] CHEM PANEL Glucose Lvl 72 70 - 99 03/28/2016 [facility] CHEM PANEL BUN 13 7 - 22 03/28/2016 [facility] CHEM PANEL Sodium Lvl 139 135 - 145 03/28/2016 [facility] CHEM PANEL Potassium Lvl 4.1 3.5 - 5.1 03/28/2016 [facility] CHEM PANEL Calcium Lvl 8.2 8.5 - 10.5 03/28/2016 [facility] CHEM PANEL CO2 27 24 - 32 03/28/2016 [facility] CHEM PANEL A/G Ratio 1.0 0.7 - 1.6 03/28/2016 [facility] CHEM PANEL B/C Ratio 20 6 - 25 03/28/2016 [facility] CHEM PANEL Globulin 2.9 2.7 - 4.2 03/28/2016 [facility] CHEM PANEL AST 10 0 - 37 03/28/2016 [facility] CHEM PANEL Bili Total 0.2 0.2 - 1.3 03/28/2016 [facility] CHEM PANEL AGAP 10.1 10.0 - 20.0 03/28/2016 [facility] CHEM PANEL Albumin Lvl 3.0 3.5 - 5.0 03/28/2016 [facility] CHEM PANEL ALT 20 0 - 65 03/28/2016 [facility] CHEM PANEL Total Protein 5.9 6.4 - 8.4 03/28/2016 [facility] CHEM PANEL Alk Phos 52 39 - 136 03/28/2016 [facility] HEMATOLOGY Basophils # 0.1 0.0 - 0.2 03/28/2016 [facility] HEMATOLOGY Segs-Bands # 4.8 1.5 - 8.1 03/28/2016 [facility] HEMATOLOGY Basophils 1.1 0.0 - 1.0 03/28/2016 [facility] HEMATOLOGY Eosinophils # 0.2 0.0 - 0.5 03/28/2016 [facility] HEMATOLOGY Lymphocytes # 3.0 1.0 - 5.5 03/28/2016 [facility] HEMATOLOGY Monocytes # 0.6 0.0 - 0.8 03/28/2016 [facility] HEMATOLOGY Lymphocytes 34.3 20.0 - 40.0 03/28/2016 [facility] HEMATOLOGY Segs 55.1 45.0 - 75.0 03/28/2016 [facility] HEMATOLOGY Monocytes 6.7 2.0 - 12.0 03/28/2016 [facility] HEMATOLOGY Eosinophils 2.8 0.0 - 4.0 03/28/2016 [facility] HEMATOLOGY MPV 8.9 7.4 - 10.4 03/28/2016 [facility] HEMATOLOGY Hgb 12.9 12.0 - 16.0 03/28/2016 [facility] HEMATOLOGY RBC 4.63 4.20 - 5.40 03/28/2016 [facility] HEMATOLOGY Platelet 269 133 - 450 03/28/2016 [facility] HEMATOLOGY WBC 8.8 3.7 - 10.4 03/28/2016 [facility] HEMATOLOGY RDW 14.2 11.5 - 14.5 03/28/2016 [facility] HEMATOLOGY Hct 37.9 36.0 - 48.0 03/28/2016 [facility] HEMATOLOGY MCHC 34.0 32.0 - 36.0 03/28/2016 [facility] HEMATOLOGY MCV 81.8 80.0 - 98.0 03/28/2016 [facility] HEMATOLOGY MCH 27.8 27.0 - 31.0 03/28/2016 [facility] Pathology Reports No Data Provided for This Section Diagnostic Reports Report Value Date Source Pelvis Transvaginal US PROCEDU RE INFORMATION: Exam: US Pelvis, Transvaginal Exam date and time: 12/10/2019 8:42 PM Age: 29 years old Clinical indication: Abdominal pain and other: Left flank pain radiating to lower left side; Patient HX: Left flank pain; PT here 12/07- C/O right side pain; Per CT 12/09/19, left renal stone; Lt ovary not vis. On US 12/09/19; Additional info: /left adnexal pain COMPARISON: PELVIS TRANSVAG W PELVIS DOPPLER US 12/09/2019 12:14 AM TECHNIQUE: Transvaginal pelvic ultrasound was performed. Transabdominal approach not utilized. FINDINGS: The pelvis show the retroflexed uterus measures 8.0 x 3.7 x 4.4 cm in size. There is normal parenchymal echotexture. The endometrial stripe measures 5.7 mm in thickness. The right ovary measures 2.8 x 2.5 x 1.7 cm. The left ovary measures 2.7 x 1.3 x 1.7 cm. Both ovaries demonstrate normal blood flow on Doppler evaluation. Bilateral ovarian follicles present. There is no adnexal mass. There is no free fluid in the cul-de-sac. IMPRESSION: Bilateral ovarian follicles. Otherwise normal appearance of bilateral ovaries with normal arterial and venous Doppler blood flow. Bhasakr Katz MD On 12/10/2019 21:52:37; [id number] 12/10/2019 [facility] Transvag w Pelvis Doppler US PROCEDURE INFORMATION: Exam: US Pelvis Complete, Transabdominal and US Pelvis, Transvaginal Exam date and time: 12/09/2019 12:14 AM Age: 29 years old Clinical indication: Pelvic pain; Patient HX: PT C/O right sided pain; Additional info: Abdominal pain, acute/eval for ovarian torsion TECHNIQUE: Imaging protocol: Real-time transabdominal and transvaginal pelvic ultrasound (complete) with image documentation. Tra nsvaginal imaging was used for better evaluation of the endometrium and adnexa. Other technique: Transvaginal and transabdominal pelvic ultrasound was performed. Transvginal images were obtained for more detailed evaluation of the endometrial stripe and ovaries. COMPARISON: CT ED Abdomen/Pelvis IV contrast only 12/08/2019 11:05 PM FINDINGS: Transabdominal images of the pelvis show the retroverted uterus measures 5.3 x 4.0 x 4.3 cm in size. Uterus not well assessed necessitating transvaginal exam. The transvaginal exam shows normal parenchymal echotexture. The endometrial stripe measures 6 mm in thickness. The right ovary measures 3.2 x 1.8 x 2.1 cm and the left ovary is not well demonstrated. There is normal right ovarian blood flow on doppler evaluation. There is no adnexal mass. There is no free fluid in the cul-de-sac. IMPRESSION: 1. Unremarkable uterus and right ovary. 2. Nonvisualized left ovary. Tiffany Choi MD On 12/09/2019 01:09:08; [id number] 12/09/2019 [facility] ED Abdomen/Pelvis IV contrast only CT Radiation Dose CTDIVOL = 0 (mGy): DLP = 1164.7 (mGy-cm) PROCEDURE INFORMATION: Exam: CT Abdomen And Pelvis With Contrast Exam date and time: 12/08/2019 11:05 PM Age: 29 years old Clinical indication: Abdominal pain; Other: RT side; Patient HX: Chief complaint: PT here with C/O right sided abd pain and urinary frequen cy for one day. PT states otc meds not helping. Reason for visit: Abd pain; Additional info: /abd pain TECHNIQUE: Imaging protocol: Computed tomography of the abdomen and pelvis with intravenous contrast. Total DLP: 1164.7 mGy-cm Radiation optimization: All CT scans at this facility use at least one of these dose optimization techniques: automated exposure control; mA and/or kV adjustment per patient size (includes targeted exams where dose is matched to clinical indication); or iterative reconstruction. Contrast material: OMNIPAQUE 300; Contrast volume: 100 ml; Contrast route: IV; COMPARISON: No relevant prior studies available. FINDINGS: Liver: Liver is enlarged at 26 cm. Gallbladder and bile ducts: The gallbladder appears collapsed. Pancreas: No focal lesion or acute pathology appreciated. Spleen: Splenomegaly is enlarged at 14 cm. Adrenals: No focal lesion or acute pathology appreciated. Kidneys and ureters: There is a 4 mm lower pole left renal stone noted. Stomach and bowel: No obstruction or abnormal thickening appreciated. Appendix: No evidence of appendicitis appreciated. Intraperitoneal space: No free air or significant fluid collection appreciated. Vasculature: No acute pathololgy appreciated. Lymph nodes: No lymphadenopathy appreciated. Bladder: No acute pathology appreciated. Reproductive: No acute pathology appreciated. Bones/joints: No suspicious lesion appreciated. Soft tissues: No acute pathology appreciated. IMPRESSION: 1. Contracted gallbladder. 2. Hepatosplenomegaly. Further work up f or etiology and follow up recommended. 3. Nephrolithiasis. Juli Colon MD On 12/08/2019 23:26:24; [id number] 12/08/2019 [facility] 2 views DX PROCEDURE INF ORMATION: Exam: XR Chest, 2 Views Exam date and time: 07/30/2019 10:46 AM Age: 29 years old Clinical history: Cough; Additional info: /persistant cough TECHNIQUE: Imaging protocol: XR of the chest Views: 2 views. PA and Lateral COMPARISON: CR CHEST 2 VIEWS DX 07/27/2019 10:58 PM FINDINGS: Limitations: Clothing artifact Lungs: Reactive airway findings with peribronchial thickening. No consolidation. Normal lung volumes. Some accentuated kyphosis. Pleural space: Unremarkable. No pleural effusion. No pneumothorax. Heart/Mediastinum: The heart size is normal. The pulmonary vasculature is normal. The mediastinal contour is normal. The trachea is midline. Bones/joints: No acute abnormality seen. IMPRESSION: Reactive airway findings with peribronchial thickening. No consolidation. Abner Gonsalves MD On 07/30/2019 10:55:04; [id number] 07/30/2019 [facility] 2 views DX PROCEDURE INF ORMATION: Exam: XR Chest, 2 Views Exam date and time: 07/27/2019 10:58 PM Age: 29 years old Clinical history: Cough; Additional info: /cough TECHNIQUE: Imaging protocol: XR of the chest Views: 2 views. PA and Lateral COMPARISON: CR CHEST 2 VIEWS DX 07/19/2019 9:54 PM FINDINGS: Lungs: Clear. No consolidation. Pleural space: No pleural effusion. No pneumothorax. Heart/Mediastinum: Contours within normal limits. Bones/joints: No acute osseous process. IMPRESSION: No acute cardiopulmonary findings Bhaskar Katz MD On 07/27/2019 22:59:56; [id number] 07/27/2019 [facility] Chest 2 views DX PROCEDURE INF ORMATION: Exam: XR Chest, 2 Views Exam date and time: 07/19/2019 9:54 PM Age: 29 years old Clinical history: Cough and fever; Additional info: /cough, fever TECHNIQUE: Imaging protocol: XR of the chest Views: 2 views. PA and Lateral COMPARISON: CR CHEST 1V FOR PLACEMENT DX 11/22/2016 6:30 PM FINDINGS: Lungs: There are normal lung volumes without consolidation or interstitial oppacities. Pleural space: Unremarkable. No pleural effusion. No pneumothorax. Heart/Mediastinum: The heart size is normal. The pulmonary vasculature is normal. The mediastinal contour is normal. The trachea is midline. Bones/joints: No acute abnormality seen. IMPRESSION: No acute cardiopulmonary findings Mohan Sinclair MD On 07/19/2019 22:03:19; [id number] 07/19/2019 [facility] Spine lumbar puncture w fluoro DX FLUOROSCOPIC GUIDED LUMBAR PUNCTURE 11/23/2016 7:00 AM CDT Technique: Informed consent was obtained. Sterile barrier technique was utilized. The fluoroscopy time is 4 seconds. 0 exposure(s). Using sterile technique and fluoroscopic guidance, I advanced a 25 gauge spinal needle into the thecal sac at the L3-L4 level. The opening CSF pressure is approximately 30 cm H2O. Approximately 13 cc of clear CSF were obtained. The patient tolerated the procedure well. IMPRESSION: Technically successful fluoroscopic-guided lumbar puncture. 11/23/2016 [facility] Chest 1 v for Placement DX Cli nical history: PICC Line Placement. : 1990. Technique: Portable AP chest x-ray. Comparison: 11/20/2016. Heart size: Moderately enlarged. Prominent vasculature. Lungs: No acute consolidation. Shallow inspiration. Pleura: No pleural effusion. No pneumothorax. Mediastinum and jo: Unremarkable. Musculoskeletal: Unremarkable. Support tubings: Right PICC line distal SVC. Impression: 1. Cardiomegaly. 11/22/2016 [facility] Brain wo contrast CT Patient N jacob: SCARLETT HAGEN : 1990; Age: 26 years y/o Female MR: [id number] Study: Brain wo contrast CT 11/20/2016 8:58 AM CDT Ordering Physician: Sandra Stephenson MD Clinical Indication: ams - ams,; Comparison: None TECHNIQUE: Noncontrast images of the brain are obtained from the skull base to the vertex. Axial, sagittal, and coronal images are interpreted. DLP: 976 mGy-cm This exam was performed according to our departmental dose-optimization protocol, which includes automated exposure control, adjustment of the mA and/or kV according to patient size and/or use of iterative reconstruction technique. FINDINGS: BRAIN PARENCHYMA: There is a brain volume is age-appropriate. There is diffuse effacement of the sulci with narrowed basal cisterns and lateral ventricles. The cerebellar tonsils remain above foramen magnum. The brain volume is age appropriate. The mcduffie-white distinction is maintained. CEREBELLOPONTINE REGIONS AND SKULL BASE: The cerebellopontine angles appear unremarkable. No skull base abnormality is seen. VENTRICLES/SULCI/CISTERNS: Diffusely narrowed ORBITS, VISUALIZED PARANASAL SINUSES AND MASTOIDS: Paranasal sinuses are clear. The mastoid air cells are clear. No orbital pathology is seen. IMPRESSION: 1. Diffusely narrowed cerebral sulci, la teral ventricles, and basal cisterns with intact mcduffie-white distinction suggestive of a mild diffuse edematous state, which may relate to benign increased intracranial pressure versus recent seizure activity or conceivably meningitis 2. The cerebellar tonsils remain above f oramen magnum, and there is no critical mass effect 3. Findings were discussed with Dr. Ronnell goss by telephone on 11/20/2016 at approximately 1015 hours 11/20/2016 [facility] Chest 1view DX EXAM: AP CHEST X-RAY DATE: 11/20/2016 8:58 AM CDT . TECHNIQUE: SINGLE FRONTAL VIEW OF THE CHEST COMPARISON: 03/28/2016 chest x-ray FINDINGS: The lungs are substantially underinflated without focal consolidation. Heart and mediastinal contours are stable. There is no acute bony abnormality. IMPRESSION: Severely underinflated lungs without acute findings clearly identified 11/20/2016 [facility] Spine cervical 2 or 3 view DX EXAM: Cervical spine HISTORY: Cervicalgia COMPARISON: None TECHNIQUE: 4 views cervical spine FINDINGS: Straightening of the cervical spine may be due to patient positioning or reflect muscle spasm. Otherwise, normal alignment. Mild degenerative disc space narrowing C6-7. SL: [id number] 09/20/2016 [facility] Chest 1view DX PROCEDURE: CHES T SINGLE VIEW INDICATION: Mid left chest pain for one hour COMPARISON: None. FINDINGS: The lungs are clear. The pleura, cardiomediastinal silhouette and bony thorax are normal. No vascular congestion is present. IMPRESSION: No acute cardiopulmonary process. SL: [id number] 03/28/2016 [facility] Consultation Notes No Data Provided for This Section Discharge Summaries No Data Provided for This Section History and Physicals No Data Provided for This Section Vital Signs Vital Sign Value Date Comments Source Systolic (mm Hg) 139 12/11/2019 [facility] Diastolic (mm Hg) 67 12/11/2019 [facility] Heart Rate 88 12/11/2019 [facility] Respitory Rate 20 12/11/2019 [facility] Temperature Oral (F) 98.0 F 12/11/2019 [facility] Systolic (mm Hg) 143 12/11/2019 [facility] Diastolic (mm Hg) 93 12/11/2019 [facility] Heart Rate 98 12/11/2019 [facility] Respitory Rate 20 12/11/2019 [facility] Heart Rate 98 12/11/2019 [facility] Systolic (mm Hg) 153 12/11/2019 [facility] Diastolic (mm Hg) 83 12/11/2019 [facility] Height 162.56 cm 12/11/2019 [facility] BMI Calculated 41.63 12/11/2019 [facility] Weight 110 12/11/2019 [facility] Respitory Rate 20 12/11/2019 [facility] Temperature Oral (F) 97.8 F 12/11/2019 [facility] Systolic (mm Hg) 147 12/09/2019 [facility] Diastolic (mm Hg) 80 12/09/2019 [facility] Heart Rate 86 12/09/2019 [facility] Respitory Rate 18 12/09/2019 [facility] Temperature Oral (F) 98.3 F 12/09/2019 [facility] Systolic (mm Hg) 124 12/09/2019 [facility] Diastolic (mm Hg) 84 12/09/2019 [facility] Heart Rate 84 12/09/2019 [facility] Respitory Rate 18 12/09/2019 [facility] Height 162.56 cm 12/09/2019 [facility] BMI Calculated 41.63 12/09/2019 [facility] Weight 110 12/09/2019 [facility] Systolic (mm Hg) 151 12/09/2019 [facility] Diastolic (mm Hg) 88 12/09/2019 [facility] Heart Rate 99 12/09/2019 [facility] Respitory Rate 18 12/09/2019 [facility] Temperature Oral (F) 98.5 F 12/09/2019 [facility] Systolic (mm Hg) 154 07/30/2019 [facility] Diastolic (mm Hg) 79 07/30/2019 [facility] Heart Rate 90 07/30/2019 [facility] Respitory Rate 18 07/30/2019 [facility] Temperature Oral (F) 98.2 F 07/30/2019 [facility] Systolic (mm Hg) 148 07/30/2019 [facility] Diastolic (mm Hg) 82 07/30/2019 [facility] Heart Rate 105 07/30/2019 [facility] Respitory Rate 18 07/30/2019 [facility] Temperature Oral (F) 98 F 07/30/2019 [facility] Height 162.56 cm 07/30/2019 [facility] BMI Calculated 40.94 07/30/2019 [facility] Weight 108.182 07/30/2019 [facility] Systolic (mm Hg) 127 07/28/2019 [facility] Diastolic (mm Hg) 76 07/28/2019 [facility] Respitory Rate 18 07/28/2019 [facility] Heart Rate 76 07/28/2019 [facility] Temperature Oral (F) 98.3 F 07/28/2019 [facility] Systolic (mm Hg) 146 07/28/2019 [facility] Diastolic (mm Hg) 81 07/28/2019 [facility] Heart Rate 87 07/28/2019 [facility] Respitory Rate 28 07/28/2019 [facility] Temperature Oral (F) 98.2 F 07/28/2019 [facility] Height 165.1 cm 07/28/2019 [facility] BMI Calculated 39.69 07/28/2019 [facility] Weight 108.182 07/28/2019 [facility] Systolic (mm Hg) 144 07/20/2019 [facility] Diastolic (mm Hg) 72 07/20/2019 [facility] Heart Rate 88 07/20/2019 [facility] Respitory Rate 20 07/20/2019 [facility] Temperature Oral (F) 99.2 F 07/20/2019 [facility] Systolic (mm Hg) 156 07/20/2019 [facility] Diastolic (mm Hg) 85 07/20/2019 [facility] Heart Rate 95 07/20/2019 [facility] Respitory Rate 18 07/20/2019 [facility] Temperature Oral (F) 99.2 F 07/20/2019 [facility] Height 162.56 cm 07/20/2019 [facility] BMI Calculated 40.94 07/20/2019 [facility] Weight 108.182 07/20/2019 [facility] Temperature Oral (F) 98.6 F 01/02/2019 [facility] Systolic (mm Hg) 133 01/02/2019 [facility] Diastolic (mm Hg) 90 01/02/2019 [facility] Respitory Rate 18 01/02/2019 [facility] Heart Rate 96 01/02/2019 [facility] Temperature Oral (F) 98.6 F 01/02/2019 [facility] Weight 109.091 01/02/2019 [facility] BMI Calculated 41.28 01/02/2019 [facility] Height 162.56 cm 01/02/2019 [facility] Heart Rate 110 01/02/2019 [facility] Systolic (mm Hg) 155 01/02/2019 [facility] Diastolic (mm Hg) 89 01/02/2019 [facility] Respitory Rate 22 01/02/2019 [facility] Respitory Rate 16 11/24/2016 [facility] Heart Rate 72 11/24/2016 [facility] Systolic (mm Hg) 150 11/24/2016 [facility] [facility] Diastolic (mm Hg) 83 11/24/2016 [facility] Systolic (mm Hg) 130 11/24/2016 [facility] Diastolic (mm Hg) 85 11/24/2016 [facility] Respitory Rate 18 11/24/2016 [facility] Heart Rate 75 11/24/2016 [facility] Temperature Oral (F) 98.4 F 11/24/2016 [facility] Heart Rate 75 11/24/2016 [facility] Temperature Oral (F) 98.1 F 11/24/2016 [facility] Systolic (mm Hg) 135 11/24/2016 [facility] Diastolic (mm Hg) 81 11/24/2016 [facility] Respitory Rate 18 11/24/2016 [facility] Temperature Oral (F) 98.7 F 11/24/2016 [facility] Weight 138.6 11/23/2016 [facility] Weight 139.5 11/20/2016 [facility] BMI Calculated 51.18 11/20/2016 [facility] Weight 139.5 11/20/2016 [facility] Height 165.1 cm 11/20/2016 [facility] Heart Rate 67 05/12/2016 [facility] Respitory Rate 18 05/12/2016 [facility] Systolic (mm Hg) 117 05/12/2016 [facility] Diastolic (mm Hg) 59 05/12/2016 [facility] Height 162.56 cm 05/12/2016 [facility] Temperature Oral (F) 98.8 F 05/12/2016 [facility] BMI Calculated 41.28 05/12/2016 [facility] Weight 109.091 05/12/2016 [facility] Systolic (mm Hg) 102 03/28/2016 [facility] Diastolic (mm Hg) 54 03/28/2016 [facility] Respitory Rate 16 03/28/2016 [facility] Heart Rate 75 03/28/2016 [facility] Systolic (mm Hg) 104 03/28/2016 [facility] Diastolic (mm Hg) 49 03/28/2016 [facility] Respitory Rate 16 03/28/2016 [facility] Heart Rate 69 03/28/2016 [facility] Systolic (mm Hg) 110 03/28/2016 [facility] Diastolic (mm Hg) 60 03/28/2016 [facility] Respitory Rate 16 03/28/2016 [facility] Heart Rate 84 03/28/2016 [facility] Weight 109.091 03/28/2016 [facility] BMI Calculated 41.28 03/28/2016 [facility] Height 162.56 cm 03/28/2016 [facility] Temperature Oral (F) 98.0 F 03/28/2016 [facility] Encounters Location Location Details Encounter Type Encounter Number Reason For Visit Attending Provider ADM Date DC Date Status Source [facility] [id number] Lionel Sheth 03/28/2016 03/28/2016 [facility] Emergency [id number] Kandyryder Bishop 05/12/2016 05/12/2016 [facility] [id number] Freddy Charles 09/20/2016 09/21/[address] [facility] Inpatient [id number] Le Waterman 11/20/2016 11/25/2016 [facility] Patients [id number] Juju Grace 12/20/2018 01/19/2019 [facility] Emergency [id number] Memo Hernandez 01/02/2019 01/02/2019 [facility] Emergency [id number] Leandra Leonard 07/20/2019 07/20/2019 [facility] ([facility]) Emergency [id number] Elisha Alcanter 07/28/2019 07/28/2019 [facility] ([facility]) Emergency [id number] Venkat Cunninghamff 07/30/2019 07/30/2019 [facility] ([facility]) Emergency [id number] Darline Longoriau 12/09/2019 12/09/2019 [facility] ([facility]) Emergency [id number] Yossi Reata 12/11/2019 12/11/2019 [facility] Outpatient [id number] Timo Schultzgatt 12/17/2019 [facility] Outpatient [id number] Timo Schultzgatt 12/17/2019 [facility] [place] Amb[facility] Pre-Reg [id number] Timo Hoggatt 12/17/2019 12/17/2019 [facility] Outpatient [id number] Timo Schultzgatt 12/25/2019 [facility] Procedures Procedure Code Date Perfomer Comments Source section [id number] [facility] Assessment and Plan Assessment and Plan Date Source Extracted from:Title: Progress Note Author: Le Waterman MD Date: 11/23/16 Assessment/Plan 26yo female with hx of polysubstance abu se, most recently with opiate dependence in rehab program on Suboxone presented with acutely altered mentation and was admitted with findings of acute hypercapneic respiratory failure and acute toxic-metabolic encephalopathy secondary to CO2 narcosis. The patient has improved with administration of BiPAP and has negative work-up for infectious or other etiology of her initial presentation. Problems: #Acute hypercapneic respiratory failure requiring BiPAP w/ CO2 narcosis, possible obesity hypoventilation syndrome #Toxic metabolic encephalopathy, resolved #Uncontrolled hypertension #Idiopathic intracranial hypertension #Depression #Polysubstance abuse including Rx drugs, tobacco use #Morbid obesity #Hx of migraines w/ headache, resolved Plan: - LP completed today as part of AMS work -up, though appears negative. - Continue to wean off BiPAP, likely can trial off tonight to assess if patient will be safe on discharge since she will not be able to get BiPAP/CPAP without sleep study. - Continue Diamox, and Clonidine. - Continue Topimax for migraines. - Continue Suboxone. - consult for assistance with outpati ent rehab resources as well as outpatient psychiatry follow up as patient does not have one. - Nutrition consult for healthy eating e ducation given obesity. 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 Prophylaxis Heparin SQ q8h PPI Disposition Continue care in MICU. Extracted from:Title: TIG Consultation Author: Cecy Patterson MD Date: 11/21/16 Consultation Note [employer] [facility] Consult Reason: Hypercapnic respiratory failure despite bipap Requesting Physician: Dr. Julio DURANT HPI: Pt is a 26 y/o F with PMH significant for drug abuse (opiates, meth, UDS this admission postive for benzos), previous suicide attempts and psych facility admissions, obesity, HTN, dyslipidemia, migraine headaches. She presents to ER 11/20 from a rehab facility (where she had been for 9 days) where she was found altered. Upon arrival the the ED, she was lethargic but arouseable. Her vitals were stable. She had a CTH remarkable for diffuse edema for which neuro was consulted. They felt that she had chronic pseudotumor cerebrii and signed off for now. She was also found on labs to be hypercapnic and was placed on bipap (all other labs aside from leukocytosis unremarakble). She remained in IMU about 24 hrs, however, due to continued hypercapnia on the bipap (albeit improving. yesterday pH 7.1s range, today 7.29 range), she is transferring to MICU. Upon arrival, she is opening her eyes, she is moaning in response to interventions- IV sticks for blood, when her name is called and continue to stimulate until she responds. PAST MEDICAL: Substance abuse Migraine headache HTN Dyslipidemia PAST SURGICAL: section Scheduled Meds (7): 11/21/16 cefTRIAXone + sodium chloride 0 .9% INJ 100 mL 2 gm IVPB [id number] 200 ml/hr 11/21/16 cloNIDine (cloNIDine 0.1 mg/24 hr transdermal film, extended release) 1 patch TOP Q7D 11/21/16 pantoprazole + sodium chloride 0.9% 10 ml INJ (PF) 10 mL (Protonix + sodium chloride 0.9% 10 ml INJ (PF) 10 mL) 40 mg IVP Before Breakfast 300 ml/hr 11/21/16 remove patch 1 patch TOP Q7D 11/20/16 topiramate (Topamax) 75 mg PO B edtime 11/21/16 (Suspended) topiramate (Topama x) 50 mg PO QAM 11/20/16 vancomycin 1.5 gm IVPB ABXQ8H 1 66.67 ml/hr Allergies (1) Active Reaction Vistaril None documented Social History: Tobacco Details: Use: Current every day smoker. Type: Cigarettes. Previous treatment: None. Ready to change: No. Household tobacco concerns: No. Tobacco smoke exposure: None. Did the Patient Smoke Cigarettes Anytime During the Last 365 Days? Yes. Cessation Counseling Provided? No. Substance Abuse Details: Use: Current. Type: Methamphetamines.; Comment(s): Pt currently is admitted at [facility] for psychiatric treatment, states has not had Meth in 9 days. Family History: Father: Heart attack; Stroke Review of Systems: cannot obtain 2/2 hypercapnia Objective: Vitals Tmp(F) Pulse BP RR SpO2 FIO2 11/21 13:16 ---- --- ----- - - --- 35% 11/21 13:00 ---- --- ----- - - 100 50% 11/21 08:52 ---- --- ----- - - 100 35% 11/21 07:00 97.5 --- ----- - - --- --- 11/21 06:00 ---- 98 179/73 2 0 98 50% 24 Hr Tmax: 98.4F (36.89c) at 11/21 00:0 0 Vital Signs are the last 5 in the past 48 hours. I&O Record In Out Bal 11/21 24hr Tot 360 0 360 11/20 24hr Tot 2786 1200 916 Lines, Tubes, and Drains: 11/20/2016 18:00 Indwelling Urinary Cath eter: Urethral 16 Upper Sorbian Indwelling/Continuous 11/20/2016 08:51 Peripheral Lines: Antec ubital Left Over the needle catheter 11/20/2016 08:51 Peripheral Lines: Hand Left 20 gauge Over the needle catheter Continuous Infusions: None Vent: 11/21/2016 13:16 FIO2 (%) 35 11/21/2016 13:00 Non-Invasive Vent Mode BIPAP Resp Rate, Set 16 PEEP/CPAP 4 Ambu Bag Mask to O2 Yes Resp Rate, Actual 21 Peak Pressure (cmH2O) 17 SpO2 percent 100 Inspiratory Pressure 16 11/21/2016 03:32 Inspiratory Time 1.0 11/20/2016 14:56 Pressure Support 7 Exhaled Tidal Vol (ml) 368 Physical Exam: GENERAL APPEARANCE: Well developed, well nourished, alert and cooperative, and appears to be in no acute distress. HEENT: normocephalic. No nasal discharge. NECK: Neck supple, non-tender CARDIAC: Normal S1 and S2. No S3, S4 or murmurs. Rhythm is regular. PMI non-displaced LUNGS: Clear to auscultation without rales, rhonchi, wheezing or diminished breath sounds. Symetric excursion. ABDOMEN: Positive bowel sounds. Soft, nondistended, nontender. No guarding or rebound. No masses. MUSKULOSKELETAL: normal inspection. Spontaneous movement of all 4 extremities. EXTREMITIES: No significant deformity or joint abnormality. No edema. Peripheral pulses intact. No varicosities. PSYCHIATRIC: normal affect. no willian abnormalities. SKIN: no rashes, no induration Labs (Last four charted values) WBC H 18.5 (NOV 21) H 14.4 (NOV 20) Hgb 12.1 (NOV 21) 13.3 (NOV 20) Hct 39.7 (NOV 21) 41.1 (NOV 20) Plt 231 (NOV 21) 309 (NOV 20) Na 142 (NOV 21) 139 (NOV 20) K 4.7 (NOV 21) 4.6 (NOV 20) CO2 H 36 (NOV 21) 31 (NOV 20) Cl 103 (NOV 21) 100 (NOV 20) Cr L 0.41 (NOV 21) 0.79 (NOV 20) BUN 7 (NOV 21) 9 (NOV 20) Glucose Random H 135 (NOV 21) H 206 (NOV 20) Mg 2.1 (NOV 20) Phos 4.5 (NOV 20) Ca L 8.1 (NOV 21) L 8.4 (NOV 20) Diagnostics: no new; cxr from yesterday reviewed and unremarkable CT brain from yesterday revewied- edema noted PROBLEM LIST: 1. Acute hypercapnic respiratory failur e 2. AMS- co2 narcosis vs other 3. Possible psuedotumor cerebrii 4. Possible meningitis 5. Possible substance intoxication (+ b enzos on UDS but was given none here) 6. Leukocytosis 7. HTN PLAN: 1. Neuro- AMS related to co2 nacosis vs other vs combination. Once co2 is blown off with bipap will reassess. CTH yesterday suggestive of pseudotumor cerebrii per neuro. -possible meningitis- refused LP in ED. Now on empiric vanc/rocephin D2. -polysubstance abuse/acute intoxication- suspect acute intoxication. give time. -depression/previous suicide attempts/pa in- of note she is on multiple pain and adjuvant type meds at home. all held here. this includes: cymbalta (SNRI), paliperidone (atypical antipsychotic), topamax (kasey agonist for HAs), suboxone (opiate) gabapentin, buspar. all are held here except topamax. but will hold this as well. 2. Resp- acute hypercapnic respiratory failure- no clear cause other than likely substance intoxication + obesity. give time. continue bipap. 3. CV- HTN- clonidine patch here 4. GI- diet 5. Renal- no issues 6. Endo- no issues 7. ID- possible mengingitis- empiric ab x D2 8. Ppx- scds/teds in case pt has LP todays orders/interventions: -increase IPAP settings on bipap and dec rease fio2 settings to stimulate breathing, help pt blow off co2 -overall suspect acute intoxication (pos sibly benzos given UDS positive for this, but there is a host of substances that do not appear on UDS that she may have taken -> whatever substance -> likely led to her hypercapnia -> AMS). -if mentation does not improve with impr ovement in hypercapnia, could then pursue LP to r/o meningitis -recheck tylenol level, salicylate level , etoh level, ammonia level, thyroid function -hold topiramate until mentation fully normalized Critical care time 50 minutes Cecy Patterson Extracted from:Title: History and Physical Author: Vic Gutierrez MD Date: 11/20/16 Assessment/Plan Altered mental status LIkely 2/2 to hypercapneic resp failure, pt with elevated WBC count will continue menigitis regimen fo rnow Ordered: Admit/Condition Admit/Condition Headache 2/2 to psuedotumor HTN (hypertension) responded well to labetolol Hypercapnic respiratory failure bipap in place Ordered: Admit/Condition Admit/Condition Increased intracranial pressure Substance abuse UDS positive for benzos Orders: cefTRIAXone + sodium chloride 0.9% INJ 100 mL, 2 gm, Route: IVPB, [id number], Dosing Weight 139.5, kg, Start date: 11/21/16 0:00:00 CDT, Duration: 30 day, Stop date: 12/20/16 12:00:00 CDT Cymbalta, 30 mg, 1 cap, Route: PO, Drug form: DRC, Bedtime, Dosing Weight 139.5, kg, Start date: 11/20/16 21:00:00 CDT, Duration: 30 day, Stop date: 12/19/16 21:00:00 CDT Cymbalta, 60 mg, 2 cap, Route: PO, Drug form: DRC, QAM, Dosing Weight 139.5, kg, Start date: 11/21/16 9:00:00 CDT, Duration: 30 day, Stop date: 12/20/16 9:00:00 CDT Haldol, 5 mg, 1 mL, Route: IV, Drug form: INJ, Q4H, Dosing Weight 139.5, kg, PRN Anxiety, Start date: 11/20/16 14:45:00 CDT, Duration: 30 day, Stop date: 12/20/16 14:44:00 CDT paliperidone, 6 mg, Route: PO, Drug form: ERTAB, QAM, Dosing Weight 139.5, kg, Start date: 11/21/16 9:00:00 CDT, Duration: 30 day, Stop date: 12/20/16 9:00:00 CDT paliperidone, 3 mg, Route: PO, Drug form: ERTAB, QAM, Dosing Weight 139.5, kg, Start date: 11/21/16 9:00:00 CDT, Duration: 30 day, Stop date: 12/20/16 9:00:00 CDT Protonix, 40 mg, 1 tab, Route: PO, Drug form: ECTAB, Before Dinner, Start date: 11/20/16 16:30:00 CDT, Duration: 30 day, Stop date: 12/19/16 16:30:00 CDT Protonix + sodium chloride 0.9% 10 ml INJ (PF) 10 mL, 40 mg, Route: IVP, BID, Dosing Weight 139.5, kg, Start date: 11/20/16 17:38:00 CDT, Duration: 30 day, Stop date: 12/20/16 17:00:00 CDT Topamax, 50 mg, 2 tab, Route: PO, Drug form: TAB, QAM, Dosing Weight 139.5, kg, Start date: 11/21/16 9:00:00 CDT, Duration: 30 day, Stop date: 12/20/16 9:00:00 CDT Topamax, 75 mg, 3 tab, Route: PO, Drug form: TAB, Bedtime, Dosing Weight 139.5, kg, Start date: 11/20/16 21:00:00 CDT, Duration: 30 day, Stop date: 12/19/16 21:00:00 CDT vancomycin, 1.5 gm, 250 mL, Route: IVPB, Drug form: INJ, ABXQ8H, Dosing Weight 139.5, kg, Start date: 11/20/16 20:00:00 CDT, Duration: 30 day, Stop date: 12/20/16 12:00:00 CDT Ambulation BMP Cardiac Monitoring (e.g. ED, PACU, IMU, ICU) CDM Admission Acute Care Post ED CDM Blood Culture and Lactate Panel CDM Zaidi Orders Complete Blood Count w/ Diff and Platelet Comprehensive Metabolic Panel Diet Heart Healthy Zaidi Care AC4 Intake and Output Strict Intake and Output Pulse Oximetry Spot Check by Nurse Restraint Non-Violent Provider Order Resuscitation (Code) Status Turn Vital Signs Daily Weight AC4 Disposition Pending clinical improvement 11/25/2016 [facility] No Data Provided for This Section Social History Social History Date Source Social History TypeResponse Alcohol Past Substance Abuse Use: Past. Type: Methamphetamines.1 Smoking Status Current every day smoker; Type: Cigarettes; Previous treatment: None; Ready to change: Yes; Concerns about tobacco use in household: No; Exposure to Tobacco Smoke self; Cigarette Smoking Last 365 Days Yes; Reg Smoking Cessation Counseling Yes; Tobacco use per day: 5; entered on: 12/10/19 1Pt currently is admitted at [facility] for psychiatric treatment, states has not had Meth in 9 days. 07/20/2019 [facility] Social History TypeResponse Alcohol Past Substance Abuse Use: Past. Type: Methamphetamines.1 Smoking Status Current every day smoker; Type: Cigarettes; Previous treatment: None; Ready to change: Yes; Concerns about tobacco use in household: No; Exposure to Tobacco Smoke self; Cigarette Smoking Last 365 Days Yes; Reg Smoking Cessation Counseling Yes; Tobacco use per day: 5; entered on: 12/14/19 1Pt currently is admitted at [facility] for psychiatric treatment, states has not had Meth in 9 days. 07/20/2019 [facility] Social History TypeResponse Substance Abuse Use: Current. Type: Methamphetamines.1 Smoking Status Current every day smoker; Type: Cigarettes; Previous treatment: None; Ready to change: No; Concerns about tobacco use in household: No; Exposure to Tobacco Smoke None; Cigarette Smoking Last 365 Days Yes; Reg Smoking Cessation Counseling No entered on: 01/01/19 1Pt currently is admitted at [facility] for psychiatric treatment, states has not had Meth in 9 days. 03/28/2016 [facility] Social History TypeResponse Substance Abuse Use: Current. Type: Methamphetamines.1 Smoking Status Current every day smoker; Type: Cigarettes; Previous treatment: None; Ready to change: No; Concerns about tobacco use in household: No; Exposure to Tobacco Smoke None; Cigarette Smoking Last 365 Days Yes; Reg Smoking Cessation Counseling No 1Pt currently is admitted at [facility] for psychiatric treatment, states has not had Meth in 9 days. 03/28/2016 [facility] Social History TypeResponse Substance Abuse Use: Current. Type: Methamphetamines.1 Smoking Status Current every day smoker; Type: Cigarettes; Previous treatment: None; Ready to change: No; Concerns about tobacco use in household: No; Exposure to Tobacco Smoke None; Cigarette Smoking Last 365 Days Yes; Reg Smoking Cessation Counseling No 1Pt currently is admitted at [facility] for psychiatric treatment, states has not had Meth in 9 days. 03/28/2016 [facility] Social History TypeResponse Substance Abuse Use: Current. Type: Methamphetamines.1 Smoking Status Current every day smoker; Type: Cigarettes; Previous treatment: None; Ready to change: No; Concerns about tobacco use in household: No; Exposure to Tobacco Smoke None; Cigarette Smoking Last 365 Days Yes; Reg Smoking Cessation Counseling No 1Pt currently is admitted at [facility] for psychiatric treatment, states has not had Meth in 9 days. 03/28/2016 [facility] Family History No Data Provided for This Section Advance Directives No Data Provided for This Section Functional Status No Data Provided for This Section
--- OUTSIDE RECORDS SUMMARY | 2020-03-27 22:40 | XMS REPORT | Summary of Care ---
Author Author [facility] Address Unknown Phone Unavailable Encounter J CARLOS Garcia(FIN) [id number] Date(s): 12/20/18 - 01/18/19 [facility] Discharge Disposition: Home or Self Care Attending Physician: Juju Grace MD Vital Signs No data available for this section Problem List Condition Effective Dates Status Health Status Informan t HTN Active (hypertension)(Confi rmed)1 Hypercholesteremia(C Active onfirmed) Migraine Resolved headache(Confirmed) Substance Resolved abuse(Confirmed)2 1takes b/p meds 2Meth - last used 9 days ago Allergies, Adverse Reactions, Alerts Substance Reaction Severity Status Vistaril Active traZODone Active Medications No data available for this [...] on: 01/01/19 1Pt currently is admitted at [facility] for psychiatric treatment, states has not had Meth in 9 days. Assessment and Plan No data available for this section
--- OUTSIDE RECORDS SUMMARY | 2020-03-27 22:40 | XMS REPORT | Summary of Care ---
Author Author [facility] Organization [facility] Address Unknown Phone Unavailable Encounter HQ Becca_jaylon(FIN) [id number] Date(s): 03/28/16 - 03/28/16 [facility] [address] [place] [address]- Discharge Diagnosis: Atypical chest pain Discharge Disposition: Home or Self Care Attending Physician: Lionel Sheth MD Vital Signs 1 2 3 Most recent to oldest [Reference Range]: 162.56 cm (03/28/16 2:17 PM) Height 98.0 DegF (03/28/16 2:17 PM) Temperature Oral [96.4-99.1 DegF] 102/54 mmHg (03/28/16 6:10 PM) 104/49 mmHg (03/28/16 3:42 PM) 110/60 mmHg (03/28/16 2:49 PM) Blood Pressure [90-140/60-90 mmHg] 16 BRMIN (03/28/16 6:10 PM) 16 BRMIN (03/28/16 3:42 PM) 16 BRMIN (03/28/16 2:49 PM) Respiratory Rate [14-20 BRMIN] 75 bpm (03/28/16 6:10 PM) 69 bpm (03/28/16 3:42 PM) 84 bpm (03/28/16 2:49 PM) Peripheral Pulse Rate [60-100 bpm] 109.091 kg (03/28/16 2:17 PM) Weight 41.28 m2 (03/28/16 2:17 PM) Body Mass Index Problem List Condition Effective Dates Status Health Status Informan t HTN Active (hypertension)(Confi rmed)1 Substance Resolved abuse(Confirmed)2 1takes b/p meds 2Meth - last used 9 days ago Allergies, Adverse Reactions, Alerts Substance Reaction Severity Status NKDA Active Medications Saline Flush 0.9% 10 mL, Route: IVP, Drug Form: INJ, Dosing Weight 109.091, kg, PRN, PRN Line Flus h, Start date: 03/28/16 14:38:00 CDT, Duration: 30 day, Stop date: 04/27/16 14:3 7:00 CDT Notes: (Same as: BD Posiflush) Start Date: 03/28/16 Stop Date: 03/28/16 Status: Discontinued Tylenol 650 mg, 2 tab, Route: PO, Drug form: TAB, ONCE, Dosing Weight 109.091, kg, Prior ity: STAT, Start date: 03/28/16 14:38:00 CDT, Stop date: 03/28/16 14:38:00 CDT Notes: Do not exceed 4 gm/day. (Same as: Tylenol) Start Date: 03/28/16 Stop Date: 03/28/16 Status: Completed Zofran 4 mg, Route: IVP, Drug form: INJ, ONCE, Dosing Weight 109.091, kg, Priority: STA T, Start date: 03/28/16 15:14:00 CDT, Stop date: 03/28/16 15:14:00 CDT Start Date: 03/28/16 Stop Date: 03/28/16 Status: Completed Results ELECTROLYTES Most recent to 1 oldest [Reference Range]: Sodium Lvl [135-145 139 mEq/L mEq/L] (03/28/16 2:50 PM) Potassium Lvl 4.1 mEq/L [3.5-5.1 mEq/L] (03/28/16 2:50 PM) Chloride Lvl [95-109 106 mEq/L mEq/L] (03/28/16 2:50 PM) CO2 [24-32 mEq/L] 27 mEq/L (03/28/16 2:50 PM) AGAP [10.0-20.0 10.1 mEq/L mEq/L] (03/28/16 2:50 PM) CHEM PANEL Most recent to 1 oldest [Reference Range]: Creatinine Lvl 0.65 mg/dL [0.50-1.40 mg/dL] (03/28/16 2:50 PM) eGFR 123 mL/min/1.73m2 1 *NA* (03/28/16 2:50 PM) BUN [7-22 mg/dL] 13 mg/dL (03/28/16 2:50 PM) B/C Ratio [6-25] 20 (03/28/16 2:50 PM) Glucose Lvl [70-99 72 mg/dL mg/dL] (03/28/16 2:50 PM) Total Protein 5.9 g/dL [6.4-8.4 g/dL] *LOW* (03/28/16 2:50 PM) Albumin Lvl [3.5-5.0 3.0 g/dL g/dL] *LOW* (03/28/16 2:50 PM) Globulin [2.7-4.2 2.9 g/dL g/dL] (03/28/16 2:50 PM) A/G Ratio [0.7-1.6] 1.0 (03/28/16 2:50 PM) Calcium Lvl 8.2 mg/dL [8.5-10.5 mg/dL] *LOW* (03/28/16 2:50 PM) ALT [0-65 unit/L] 20 unit/L (03/28/16 2:50 PM) AST [0-37 unit/L] 10 unit/L (03/28/16 2:50 PM) Alk Phos [39-136 52 unit/L unit/L] (03/28/16 2:50 PM) Bili Total [0.2-1.3 0.2 mg/dL mg/dL] (03/28/16 2:50 PM) 1Result Comment: The eGFR is calculated using the [...] from the National Kidney Disease Education Program ( NKDEP) which additionally recommends that when the eGFR is used in patients with extremes of body mass index for purposes of drug dosing, the eGFR should be mul tiplied by the estimated BMI. CARDIAC ENZYMES Most recent to 1 oldest [Reference Range]: Total CK [12-191 39 unit/L unit/L] (03/28/16 2:50 PM) CK MB [0.5-3.6 <0.5 ng/mL ng/mL] (03/28/16 2:50 PM) CK MB Index <1.3 [0.0-2.5] (03/28/16 2:50 PM) Troponin-I <0.02 ng/mL [0.00-0.40 ng/mL] (03/28/16 2:50 PM) BNP [<=100 pg/mL] 77 pg/mL (03/28/16 2:50 PM) IMMUNOLOGY Most recent to 1 oldest [Reference Range]: CDC HIV 4th GEN Negative [Negative] (03/28/16 3:40 PM) HEMATOLOGY Most recent to 1 oldest [Reference Range]: WBC [3.7-10.4 K/CMM] 8.8 K/CMM (03/28/16 2:50 PM) RBC [4.20-5.40 4.63 M/CMM M/CMM] (03/28/16 2:50 PM) Hgb [12.0-16.0 g/dL] 12.9 g/dL (03/28/16 2:50 PM) Hct [36.0-48.0 %] 37.9 % (03/28/16 2:50 PM) MCV [80.0-98.0 fL] 81.8 fL (03/28/16 2:50 PM) MCH [27.0-31.0 pg] 27.8 pg (03/28/16 2:50 PM) MCHC [32.0-36.0 34.0 g/dL g/dL] (03/28/16 2:50 PM) RDW [11.5-14.5 %] 14.2 % (03/28/16 2:50 PM) Platelet [133-450 269 K/CMM K/CMM] (03/28/16 2:50 PM) MPV [7.4-10.4 fL] 8.9 fL (03/28/16 2:50 PM) Segs [45.0-75.0 %] 55.1 % (03/28/16 2:50 PM) Lymphocytes 34.3 % [20.0-40.0 %] (03/28/16 2:50 PM) Monocytes [2.0-12.0 6.7 % %] (03/28/16 2:50 PM) Eosinophils [0.0-4.0 2.8 % %] (03/28/16 2:50 PM) Basophils [0.0-1.0 1.1 % %] *HI* (03/28/16 2:50 PM) Segs-Bands # 4.8 K/CMM [1.5-8.1 K/CMM] (03/28/16 2:50 PM) Lymphocytes # 3.0 K/CMM [1.0-5.5 K/CMM] (03/28/16 2:50 PM) Monocytes # [0.0-0.8 0.6 K/CMM K/CMM] (03/28/16 2:50 PM) Eosinophils # 0.2 K/CMM [0.0-0.5 K/CMM] (03/28/16 2:50 PM) Basophils # [0.0-0.2 0.1 K/CMM K/CMM] (03/28/16 2:50 PM) Immunizations No data available for this [...] Counseling No 1Pt currently is admitted at [facility] for psychiatric treatment, states has not had Meth in 9 days. Assessment and Plan No data available for this section
--- OUTSIDE RECORDS SUMMARY | 2020-03-27 22:40 | XMS REPORT | Summary of Care ---
Author Author [facility] Organization [facility] Address Unknown Phone Unavailable Encounter J CARLOS Garcia(FIN) [id number] Date(s): 07/19/19 - 07/19/19 [id number] [place] [address]- [phone] Encounter Diagnosis Cough (Discharge Diagnosis) - 07/19/19 Acute upper respiratory infection (Discharge Diagnosis) - 07/19/19 Discharge Disposition: Home or Self Care Attending Physician: Leandra Leonard MD Vital Signs Most recent to 1 2 oldest [Reference Range]: Height 162.56 cm (07/19/19 9:02 PM) Temperature Oral 99.2 DegF 99.2 DegF [96.4-99.1 DegF] *HI* *HI* (07/19/19 10:06 PM) (07/19/19 9:02 PM) Blood Pressure 144/72 mmHg 156/85 mmHg [90-140/60-90 mmHg] *HI* *HI* (07/19/19 10:06 PM) (07/19/19 9:02 PM) Respiratory Rate 20 BRMIN 18 BRMIN [14-20 BRMIN] (07/19/19 10:06 PM) (07/19/19 9:02 PM) Peripheral Pulse 88 bpm 95 bpm Rate [60-100 bpm] (07/19/19 10:06 PM) (07/19/19 9:02 PM) Weight 108.182 kg (07/19/19 9:02 PM) Body Mass Index 40.94 m2 (07/19/19 9:02 PM) Problem List Condition Effective Dates Status Health Status Informan t HTN Active (hypertension)(Confi rmed)1 Hypercholesteremia(C Active onfirmed) Migraine Resolved headache(Confirmed) Substance Resolved abuse(Confirmed)2 1takes b/p meds 2Meth - last used 9 days ago Allergies, Adverse Reactions, Alerts Substance Reaction Severity Status Vistaril Active traZODone Active Medications Bromfed DM oral syrup 5 mL, PO, TID, PRN cough, X 8 day, # 120 mL, 0 Refill(s) Start Date: 07/19/19 Stop Date: 07/27/19 Status: Ordered dexamethasone 10 mg, Route: IM, ONCE, Dosing Weight 108.182, kg, Priority: STAT, Start date: 09/18/18 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:00 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, Stop date: 07/19/19 21:23:00 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 Start Date: 07/19/19 Stop Date: 07/19/19 Status: Completed ketOROLAC 30 mg, Route: IM, Drug form: INJ, ONCE, Dosing Weight 108.182, kg, Priority: STA T, Start date: 07/19/19 21:23:00 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, Stop date: 07/19/19 21:23:00 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 Start Date: 07/19/19 Stop Date: 07/19/19 Status: Completed predniSONE 20 mg oral tablet See Special Instructions, PO, Daily, 4 day regimen: Day 1 - 40 mg (2 tabs) Day 2 - 30 mg (1 1/2 tabs) Day 3 - 20 mg (1 tab) Day 4 - 10 mg (1/2 tab), X 4 day, # 6 tab, 0 Refill(s) Start Date: 07/19/19 Stop Date: 07/23/19 Status: Ordered Tessalon 200 mg oral capsule 200 mg = 1 cap, PO, Bedtime, X 10 day, # 10 cap, 0 Refill(s) Start Date: 07/19/19 Stop Date: 07/29/19 Status: Ordered Results No data available for [...] 365 Days Yes; Reg Smoking Cessation Counseling No; Tobacco use pe r day: 30; entered on: 07/19/19 1Pt currently is admitted at [facility] for psychiatric treatment, states has not had Meth in 9 days. Assessment and Plan No data available for this section
--- OUTSIDE RECORDS SUMMARY | 2020-03-27 22:40 | XMS REPORT | Summary of Care ---
Author Author [facility] Organization [facility] Address Unknown Phone Unavailable Encounter J CARLOS Garcia(FIN) [id number] Date(s): 12/08/19 - 12/09/19 [id number] [place] [address]- [phone] Encounter Diagnosis Left nephrolithiasis (Discharge Diagnosis) - 12/08/19 Abdominal pain, acute (Discharge Diagnosis) - 12/08/19 Hepatosplenomegaly (Discharge Diagnosis) - 12/08/19 Bacterial vaginosis (Discharge Diagnosis) - 12/09/19 Discharge Disposition: Home or Self Care Attending Physician: Darline Santana MD Vital Signs 1 2 3 Most recent to oldest [Reference Range]: 162.56 cm (12/08/19 9:40 PM) Height 98.3 DegF (12/09/19 1:27 AM) 98.5 DegF (12/08/19 9:40 PM) Temperature Oral [96.4-99.1 DegF] 147/80 mmHg *HI* (12/09/19 1:27 AM) 124/84 mmHg (12/08/19 11:30 PM) 151/88 mmHg *HI* (12/08/19 9:40 PM) Blood Pressure [90-140/60-90 mmHg] 18 BRMIN (12/09/19 1:27 AM) 18 BRMIN (12/08/19 11:30 PM) 18 BRMIN (12/08/19 9:40 PM) Respiratory Rate [14-20 BRMIN] 86 bpm (12/09/19 1:27 AM) 84 bpm (12/08/19 11:30 PM) 99 bpm (12/08/19 9:40 PM) Peripheral Pulse Rate [60-100 bpm] 110 kg (12/08/19 9:40 PM) Weight 41.63 m2 (12/08/19 9:40 PM) Body Mass Index Problem List Condition Effective Dates Status Health Status Informan t HTN Active (hypertension)(Confi rmed)1 Hypercholesteremia(C Active onfirmed) Migraine Resolved headache(Confirmed) Substance Resolved abuse(Confirmed)2 1takes b/p meds 2Meth - last used 9 days ago Allergies, Adverse Reactions, Alerts Substance Reaction Severity Status Vistaril Active traZODone Active Medications Abilify 15 mg oral tablet 15 mg = 1 tab, PO, Bedtime Start Date: 12/08/19 Status: Ordered azithromycin 1,000 mg, Route: PO, Drug form: TAB, ONCE, Dosing Weight 110, kg, Start date: 0:39:00 CDT, Stop date: 12/09/19 0:39:00 CDT, ABX Indication: Genital Tra ct Infection Start Date: 12/09/19 Stop Date: 12/09/19 Status: Completed clonazePAM 1 mg oral tablet 1 mg = 1 tab, PO, BID Start Date: 12/08/19 Status: Ordered doxepin 50 mg oral capsule 50 mg = 1 cap, PO, Bedtime Start Date: 12/08/19 Status: Ordered fentaNYL 25 microgram, 0.5 mL, Route: IVP, Drug form: INJ, ONCE, Dosing Weight 110, kg, P riority: STAT, Start date: 12/08/19 22:09:00 CDT, Stop date: 12/08/19 22:09:00 C DT, 0 Notes: (Same as: Sublimaze) Preservative free. Start Date: 12/08/19 Stop Date: 12/08/19 Status: Completed Flagyl 2 gm, Route: PO, ONCE, Dosing Weight 110, kg, Start date: 12/09/19 0:39:00 CDT, Stop date: 12/09/19 0:39:00 CDT, ABX Indication: Genital Tract Infection Start Date: 12/09/19 Stop Date: 12/09/19 Status: Completed Indocin 50 mg, PO, Daily Start Date: 12/08/19 Status: Ordered ketOROLAC 15 mg/mL injectable solution 15 mg, Route: IVP, Drug form: INJ, ONCE, Dosing Weight 110, kg, Priority: STAT, Start date: 12/09/19 0:01:00 CDT, Stop date: 12/09/19 0:01:00 CDT Start Date: 12/09/19 Stop Date: 12/09/19 Status: Completed Rocephin 250 mg, Route: IM, Drug form: PDR/INJ, ONCE, Dosing Weight 110, kg, Priority: ST AT, Start date: 12/09/19 0:39:00 CDT, Stop date: 12/09/19 0:39:00 CDT, ABX Indic ation: Genital Tract Infection Start Date: 12/09/19 Stop Date: 12/09/19 Status: Completed Zofran 4 mg, 2 mL, Route: IVP, Drug form: INJ, ONCE, Dosing Weight 110, kg, Priority: S TAT, Start date: 12/08/19 22:09:00 CDT, Stop date: 12/08/19 22:09:00 CDT, 0 Notes: (Same as: Zofran) MEDICATION WASTE Product Size: 4 mgProduct Was wendy: ___ mg Start Date: 12/08/19 Stop Date: 12/08/19 Status: Completed Zoloft 50 mg oral tablet 50 mg = 1 tab, PO, Daily Start Date: 12/08/19 Status: Ordered Results Most recent to 1 oldest [Reference Range]: Neutrophils # 10.6 K/CMM [1.5-8.1 K/CMM] *HI* (12/08/19 10:23 PM) Lymphocytes # 1.2 K/CMM [1.0-5.5 K/CMM] (12/08/19 10:23 PM) Monocytes # [0.0-0.8 0.3 K/CMM K/CMM] (12/08/19 10:23 PM) Eosinophils # 0.1 K/CMM [0.0-0.5 K/CMM] (12/08/19 10:23 PM) eGFR 109 mL/min/1.73m2 1 *NA* (12/08/19 10:23 PM) A/G Ratio [0.7-1.6] 1.0 (12/08/19 10:23 PM) Albumin Lvl [3.5-5.0 3.7 g/dL g/dL] (12/08/19 PM) Alk Phos [39-136 76 unit/L unit/L] (12/08/19 PM) ALT [0-65 unit/L] 25 unit/L (12/08/19 PM) AGAP [10.0-20.0 15.7 mEq/L mEq/L] (12/08/19 PM) AST [0-37 unit/L] 14 unit/L (12/08/19 PM) B/C Ratio [6-25] 28 *HI* (12/08/19 PM) Basophils [0.0-1.0 0.4 % %] (12/08/19 PM) BUN [7-22 mg/dL] 21 mg/dL (12/08/19 PM) Calcium Lvl 8.7 mg/dL [8.5-10.5 mg/dL] (12/08/19 PM) Chloride Lvl [95-109 109 mEq/L mEq/L] (12/08/19 PM) CO2 [24-32 mEq/L] 23 mEq/L *LOW* (12/08/19 PM) Creatinine Lvl 0.74 mg/dL [0.50-1.40 mg/dL] (12/08/19 PM) Eosinophils [0.0-4.0 0.7 % %] (12/08/19 PM) Globulin [2.7-4.2 3.7 g/dL g/dL] (12/08/19 PM) Glucose Lvl [70-99 128 mg/dL mg/dL] *HI* (12/08/19 PM) Hct [36.0-48.0 %] 44.6 % (12/08/19 PM) Hgb [12.0-16.0 g/dL] 14.7 g/dL (12/08/19 PM) Potassium Lvl 4.7 mEq/L [3.5-5.1 mEq/L] (12/08/19 PM) Lactic Acid Lvl 1.1 mMol/L [0.5-2.2 mMol/L] (12/08/19:23 PM) Lipase Lvl [73-393 121 unit/L unit/L] (12/08/19 PM) Lymphocytes 9.8 % [20.0-40.0 %] *LOW* (12/08/19 PM) MCH [27.0-31.0 pg] 29.3 pg (12/08/19 PM) MCHC [32.0-36.0 33.1 g/dL g/dL] (12/08/19: PM) MCV [80.0-98.0 fL] 88.6 fL (12/08/19 PM) Monocytes [2.0-12.0 2.6 % %] (12/08/19 PM) MPV [7.4-10.4 fL] 8.6 fL (12/08/19: PM) Sodium Lvl [135-145 143 mEq/L mEq/L] (12/08/19 PM) Platelet [133-450 281 K/CMM K/CMM] (12/08/19: PM) Segs [45.0-75.0 %] 86.6 % *HI* (12/08/19: PM) Total Protein 7.4 g/dL [6.4-8.4 g/dL] (12/08/19: PM) RBC [4.20-5.40 5.03 M/CMM M/CMM] (12/08/19: PM) RDW [11.5-14.5 %] 14.2 % (12/08/19: PM) Bili Total [0.2-1.3 0.2 mg/dL mg/dL] (12/08/19 10:23 PM) UA Amorph Madeleine [None Moderate /HPF Seen /HPF] *ABN* (12/08/19 9:49 PM) UA Bacteria [None Occasional /HPF Seen /HPF] (12/08/19 9:49 PM) UA Bili [Negative] Negative (12/08/19 9:49 PM) UA Blood [Negative] Negative (12/08/19 9:49 PM) UA Color [Yellow] Light Yellow (12/08/19 9:49 PM) UA Glucose Negative [Negative] (12/08/19 9:49 PM) UA Ketones Negative [Negative] (12/08/19 9:49 PM) UA Leuk Est Negative [Negative] (12/08/19 9:49 PM) UA Mucus [None Seen] None Seen (12/08/19 9:49 PM) UA Nitrite Negative [Negative] (12/08/19 9:49 PM) UA pH [5.0-8.0] 7.5 (12/08/19 9:49 PM) U Preg [Negative] Negative (12/08/19 9:49 PM) UA Protein Negative [Negative] (12/08/19 9:49 PM) UA RBC [0-2 /HPF] 0-2 /HPF (12/08/19 9:49 PM) UA Spec Grav 1.015 [<=1.030] (12/08/19 9:49 PM) UA Sq Epi [Few /LPF] Few /LPF (12/08/19 9:49 PM) UA Turbidity Hazy *NA* (12/08/19 9:49 PM) UA Urobilinogen 0.2 EU/dL [0.1-1.0 EU/dL] (12/08/19 9:49 PM) UA WBC [None Seen 0-2 /HPF /HPF] (12/08/19 9:49 PM) WBC [3.7-10.4 K/CMM] 12.3 K/CMM *HI* (12/08/19 10:23 PM) C trachomatis by Amp Negative Det (APTIMA) *NA* [Negative] (12/08/19 11:58 PM) N gonorrhea by Amp Negative Det (APTIMA) *NA* [Negative] (12/08/19 11:58 PM) Source APTIMA Vaginal *NA* (12/08/19 11:58 PM) 1Result Comment: The eGFR is calculated [...] be mul tiplied by the estimated BMI. Immunizations No data available for this section [...] on: 12/10/19 1Pt currently is admitted at [facility] for psychiatric treatment, states has not had Meth in 9 days. Assessment and Plan No data available for this section
--- OUTSIDE RECORDS SUMMARY | 2020-03-27 22:40 | XMS REPORT | Summary of Care ---
Author Author [facility] Organization [facility] Address Unknown Phone Unavailable Encounter HQ Jose(FIN) [id number] Date(s): 07/27/19 - 07/27/19 [address] [place] [address]- [phone] Encounter Diagnosis Cough (Discharge Diagnosis) - 07/27/19 Malaise and fatigue (Discharge Diagnosis) - 07/27/19 Nausea without vomiting (Discharge Diagnosis) - 07/27/19 Acute upper respiratory infection, unspecified (Discharge Diagnosis) - 07/27/19 Discharge Disposition: Home or Self Care Attending Physician: Elisha Eisenberg MD Vital Signs Most recent to 1 2 oldest [Reference Range]: Height 165.1 cm (07/27/19 9:51 PM) Temperature Oral 98.3 DegF 98.2 DegF [96.4-99.1 DegF] (07/27/19 11:27 PM) (07/27/19 9:51 PM) Blood Pressure 127/76 mmHg 146/81 mmHg [90-140/60-90 mmHg] (07/27/19 11:27 PM) *HI* (07/27/19 9:51 PM) Respiratory Rate 18 BRMIN 28 BRMIN [14-20 BRMIN] (07/27/19 11:27 PM) *HI* (07/27/19 9:51 PM) Peripheral Pulse 76 bpm 87 bpm Rate [60-100 bpm] (07/27/19 11:27 PM) (07/27/19 9:51 PM) Weight 108.182 kg (07/27/19 9:51 PM) Body Mass Index 39.69 m2 (07/27/19 9:51 PM) Problem List Condition Effective Dates Status Health Status Informan t HTN Active (hypertension)(Confi rmed)1 Hypercholesteremia(C Active onfirmed) Migraine Resolved headache(Confirmed) Substance Resolved abuse(Confirmed)2 1takes b/p meds 2Meth - last used 9 days ago Allergies, Adverse Reactions, Alerts Substance Reaction Severity Status Vistaril Active traZODone Active Medications acetaminophen-codeine #3 1 tab, Route: PO, Drug Form: TAB, Dosing Weight 108.182, kg, ONCE, STAT, Start d ate: 07/27/19 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, Stop date: 07/27/19 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 Start Date: 07/27/19 Stop Date: 07/27/19 Status: Completed albuterol 0.083% inhalation solution 2.49 mg, Route: NEB, Drug form: SOLN, ONCE, Dosing Weight 108.182, kg, Priority: STAT, Start date: 07/27/19 22:03:00 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, Stop date: 07/27/19 22:03:00 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 Start Date: 07/27/19 Stop Date: 07/27/19 Status: Completed albuterol 90 mcg/inh inhalation aerosol 2 puff, INHALATION, QID, PRN Wheezing, # 17 gm, 0 Refill(s) Start Date: 07/27/19 Status: Ordered ibuprofen 800 mg oral tablet 800 mg = 1 tab, PO, Q8H, PRN Fever or Pain, Take with food For acute pain, X 10 day, # 30 tab, 0 Refill(s) Start Date: 07/27/19 Stop Date: 08/06/19 Status: Ordered Tessalon Perles 100 mg oral capsule 100 mg = 1 cap, PO, Q8H, PRN cough, do not crush or chew, X 10 day, # 30 cap, 0 Refill(s) Start Date: 07/27/19 Stop Date: 08/06/19 Status: Ordered Tylenol with Codeine #3 oral tablet 1 tab, Route: PO, Dosing Weight 108.182, kg, Q6H, Start date: 07/28/19 0:00:[address], Duration: 30 day, Stop date: 08/26/19 18:00:00 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, Start Date: 07/28/19 Stop Date: 07/27/19 Status: Canceled Tylenol with Codeine #3 oral tablet 1 - 2 tab, PO, Q4H, PRN Cough, not to exceed 4000 mg acetaminophen per day Use with caution and take a stool softener while using this medication as it can cau se constipation., X 2 day, # 20 tab, 0 Refill(s) Start Date: 07/27/19 Stop Date: 07/29/19 Status: Ordered Zofran ODT 4 mg oral tablet, disintegrating 4 mg = 1 tab, PO, BID, PRN Nausea and Vomiting, Dissolve tab under tongue, # 10 tab, 0 Refill(s) Start Date: 07/27/19 Stop Date: 08/01/19 Status: Ordered Results No data available for [...] use p er day: 5; entered on: 07/27/19 1Pt currently is admitted at [facility] for psychiatric treatment, states has not had Meth in 9 days. Assessment and Plan No data available for this section
--- OUTSIDE RECORDS SUMMARY | 2020-03-27 22:40 | XMS REPORT | Summary of Care ---
Author Author [facility] Organization [facility] Address Unknown Phone Unavailable Encounter J ACRLOS Garcia(MERRY) [id number] Date(s): 05/12/16 - 05/12/[address] [facility] [address] [place] [address]- [phone] Discharge Disposition: Left Against Medical Advise Attending Physician: Kandy Bishop MD Vital Signs Most recent to 1 oldest [Reference Range]: Height 162.56 cm (05/12/16 12:15 PM) Temperature Oral 98.8 DegF [96.4-99.1 DegF] (05/12/16 12:15 PM) Blood Pressure 117/59 mmHg [90-140/60-90 mmHg] (05/12/16 12:15 PM) Respiratory Rate 18 BRMIN [14-20 BRMIN] (05/12/16 12:15 PM) Peripheral Pulse 67 bpm Rate [60-100 bpm] (05/12/16 12:15 PM) Weight 109.091 kg (05/12/16 12:15 PM) Body Mass Index 41.28 m2 (05/12/16 12:15 PM) Problem List Condition Effective Dates Status Health Status Informan t HTN Active (hypertension)(Confi rmed)1 Hypercholesteremia(C Active onfirmed) Migraine Resolved headache(Confirmed) Substance Resolved abuse(Confirmed)2 1takes b/p meds 2Meth - last used 9 days ago Allergies, Adverse Reactions, Alerts Substance Reaction Severity Status Vistaril Active Medications ketOROLAC 30 mg/mL injectable solution 30 mg, 1 mL, Route: IVP, Drug form: INJ, ONCE, Dosing Weight 109.091, kg, Priori ty: STAT, Start date: 05/12/16 14:00:00 CDT, Stop date: 05/12/16 14:00:00 CDT Notes: (Same as:Toradol) IV bolus must be given >15 seconds. Give IM administration slowly and deeply into the muscle.Not for use > 4 days MEDICATION WASTE Product Size: 30 mgProduct Wasted: _0__ mg Start Date: 05/12/16 Stop Date: 05/12/16 Status: Completed nitroglycerin 0.4 mg, Route: SL, ONCE, Dosing Weight 109.091, kg, Priority: STAT, Start date: 05/12/16 13:28:00 CDT, Stop date: 05/12/16 13:28:00 CDT Start Date: 05/12/16 Stop Date: 05/12/16 Status: Completed Saline Flush 0.9% 10 mL, Route: IVP, Drug Form: INJ, Dosing Weight 109.091, kg, PRN, PRN Line Flus h, Start date: 05/12/16 12:45:00 CDT, Duration: 30 day, Stop date: 06/11/16 12:4 4:00 CDT Notes: (Same as: BD Posiflush) Start Date: 05/12/16 Stop Date: 05/12/16 Status: Discontinued Sodium Chloride 0.9% (Bolus) IV 1,000 mL, 1000 ml/hr, Infuse Over: 1 hr, Route: IV, 1,000, Drug form: INJ, ONCE, Priority: STAT, Dosing Weight 109.091 kg, Start date: 05/12/16 12:45:00 CDT, Du ration: 1 doses or times, Stop date: 05/12/16 12:45:00 CDT Start Date: 05/12/16 Stop Date: 05/12/16 Status: Completed Sodium Chloride 0.9% IV 25 mL, Route: IV, Start date: 05/12/16 13:00:00 CDT, Duration: 30 day, Stop date : 06/11/16 12:59:00 CDT, PRN Line Flush Start Date: 05/12/16 Stop Date: 05/12/16 Status: Discontinued Tylenol 650 mg, 2 tab, Route: PO, Drug form: TAB, ONCE, Dosing Weight 109.091, kg, Prior ity: STAT, Start date: 05/12/16 12:45:00 CDT, Stop date: 05/12/16 12:45:00 CDT Notes: (Same as: Tylenol) Start Date: 05/12/16 Stop Date: 05/12/16 Status: Completed Results ELECTROLYTES Most recent to 1 oldest [Reference Range]: Sodium Lvl [135-145 137 mEq/L mEq/L] (05/12/16 12:53 PM) Potassium Lvl 4.7 mEq/L [3.5-5.1 mEq/L] (05/12/16 12:53 PM) Chloride Lvl [95-109 104 mEq/L mEq/L] (05/12/16 12:53 PM) CO2 [24-32 mEq/L] 31 mEq/L (05/12/16 12:53 PM) AGAP [10.0-20.0 6.7 mEq/L mEq/L] *LOW* (05/12/16 12:53 PM) CHEM PANEL Most recent to 1 oldest [Reference Range]: Creatinine Lvl 0.63 mg/dL [0.50-1.40 mg/dL] (05/12/16 12:53 PM) eGFR 124 mL/min/1.73m2 1 *NA* (05/12/16 12:53 PM) BUN [7-22 mg/dL] 16 mg/dL (05/12/16 12:53 PM) B/C Ratio [6-25] 25 (05/12/16 12:53 PM) Glucose Lvl [70-99 92 mg/dL mg/dL] (05/12/16 12:53 PM) Total Protein 6.7 g/dL [6.4-8.4 g/dL] (05/12/16 12:53 PM) Albumin Lvl [3.5-5.0 3.5 g/dL g/dL] (05/12/16 12:53 PM) Globulin [2.7-4.2 3.2 g/dL g/dL] (05/12/16 12:53 PM) A/G Ratio [0.7-1.6] 1.1 (05/12/16 12:53 PM) Calcium Lvl 8.9 mg/dL [8.5-10.5 mg/dL] (05/12/16 12:53 PM) Phosphorus [2.5-4.5 3.5 mg/dL mg/dL] (05/12/16 12:53 PM) Magnesium Lvl 1.8 mg/dL [1.8-2.4 mg/dL] (05/12/16 12:53 PM) ALT [0-65 unit/L] 27 unit/L (05/12/16 12:53 PM) AST [0-37 unit/L] 17 unit/L (05/12/16 12:53 PM) Alk Phos [39-136 65 unit/L unit/L] (05/12/16 12:53 PM) Bili Total [0.2-1.3 0.2 mg/dL mg/dL] (05/12/16 12:53 PM) 1Result Comment: The eGFR is calculated [...] 1 oldest [Reference Range]: Total CK [12-191 70 unit/L unit/L] (05/12/16 12:53 PM) CK MB [0.5-3.6 <0.5 ng/mL ng/mL] (05/12/16 12:53 PM) CK MB Index <0.7 [0.0-2.5] (05/12/16 12:53 PM) Troponin-I <0.02 ng/mL [0.00-0.40 ng/mL] (05/12/16 12:53 PM) URINE CHEM Most recent to 1 oldest [Reference Range]: U Preg [Negative] Negative (05/12/16 1:15 PM) URINE AND STOOL Most recent to 1 oldest [Reference Range]: UA Turbidity [Clear] Clear (05/12/16 1:15 PM) UA Color [Yellow] Light Yellow *NA* (05/12/16 1:15 PM) UA pH [5.0-8.0] 6.0 (05/12/16 1:15 PM) UA Spec Grav 1.014 [<=1.030] (05/12/16 1:15 PM) UA Glucose [Negative Negative mg/dL mg/dL] *NA* (05/12/16 1:15 PM) UA Blood [Negative] Negative (05/12/16 1:15 PM) UA Ketones [Negative Negative mg/dL mg/dL] *NA* (05/12/16 1:15 PM) UA Protein [Negative Negative mg/dL mg/dL] (05/12/16 1:15 PM) UA Urobilinogen <=1.0 mg/dL [0.1-1.0 mg/dL] *NA* (05/12/16 1:15 PM) UA Bili [Negative] Negative *NA* (05/12/16 1:15 PM) UA Leuk Est Negative [Negative] (05/12/16 1:15 PM) UA Nitrite Negative [Negative] (05/12/16 1:15 PM) UA WBC [0-5 /HPF] 1 /HPF (05/12/16 1:15 PM) UA RBC [0-2 /HPF] 1 /HPF (05/12/16 1:15 PM) UA Sq Epi [Few /LPF] Occasional /LPF *NA* (05/12/16 1:15 PM) HEMATOLOGY Most recent to 1 oldest [Reference Range]: WBC [3.7-10.4 K/CMM] 9.5 K/CMM (05/12/16 12:53 PM) RBC [4.20-5.40 4.73 M/CMM M/CMM] (05/12/16 12:53 PM) Hgb [12.0-16.0 g/dL] 13.5 g/dL (05/12/16 12:53 PM) Hct [36.0-48.0 %] 39.8 % (05/12/16 12:53 PM) MCV [80.0-98.0 fL] 84.2 fL (05/12/16 12:53 PM) MCH [27.0-31.0 pg] 28.5 pg (05/12/16 12:53 PM) MCHC [32.0-36.0 33.8 g/dL g/dL] (05/12/16 12:53 PM) RDW [11.5-14.5 %] 14.4 % (05/12/16 12:53 PM) Platelet [133-450 296 K/CMM K/CMM] (05/12/16 12:53 PM) MPV [7.4-10.4 fL] 9.1 fL (05/12/16 12:53 PM) Segs [45.0-75.0 %] 57.3 % (05/12/16 12:53 PM) Lymphocytes 33.0 % [20.0-40.0 %] (05/12/16 12:53 PM) Monocytes [2.0-12.0 6.2 % %] (05/12/16 12:53 PM) Eosinophils [0.0-4.0 3.0 % %] (05/12/16 12:53 PM) Basophils [0.0-1.0 0.5 % %] (05/12/16 12:53 PM) Segs-Bands # 5.4 K/CMM [1.5-8.1 K/CMM] (05/12/16 12:53 PM) Lymphocytes # 3.1 K/CMM [1.0-5.5 K/CMM] (05/12/16 12:53 PM) Monocytes # [0.0-0.8 0.6 K/CMM K/CMM] (05/12/16 12:53 PM) Eosinophils # 0.3 K/CMM [0.0-0.5 K/CMM] (05/12/16 12:53 PM) Basophils # [0.0-0.2 0.1 K/CMM K/CMM] (05/12/16 12:53 PM) PT [12.0-14.7 13.2 seconds seconds] (05/12/16 12:53 PM) INR [0.85-1.17] 0.97 (05/12/16 12:53 PM) D-Dimer 0.35 ug/mL FEU *NA* (05/12/16 12:53 PM) Immunizations No data available for this [...] Counseling No 1Pt currently is admitted at [facility] for psychiatric treatment, states has not had Meth in 9 days. Assessment and Plan No data available for this section
--- OUTSIDE RECORDS SUMMARY | 2020-03-27 22:40 | XMS REPORT | Summary of Care ---
Author Author [facility] Organization [facility] Address Unknown Phone Unavailable Encounter HQ Jose(FIN) [id number] Date(s): 07/30/19 - 07/30/19 [address] [place] [address]- [phone] Encounter Diagnosis Bronchitis (Discharge Diagnosis) - 07/30/19 Cough (Discharge Diagnosis) - 07/30/19 Reactive airway disease (Discharge Diagnosis) - 07/30/19 Discharge Disposition: Home or Self Care Attending Physician: Venkat Suarez MD Vital Signs Most recent to 1 2 oldest [Reference Range]: Height 162.56 cm (07/30/19 10:27 AM) Temperature Oral 98.2 DegF 98 DegF [96.4-99.1 DegF] (07/30/19 11:33 AM) (07/30/19 10:27 AM) Blood Pressure 154/79 mmHg 148/82 mmHg [90-140/60-90 mmHg] *HI* *HI* (07/30/19 11:33 AM) (07/30/19 10:27 AM) Respiratory Rate 18 BRMIN 18 BRMIN [14-20 BRMIN] (07/30/19 11:33 AM) (07/30/19 10:27 AM) Peripheral Pulse 90 bpm 105 bpm Rate [60-100 bpm] (07/30/19 11:33 AM) *HI* (07/30/19 10:27 AM) Weight 108.182 kg (07/30/19 10:27 AM) Body Mass Index 40.94 m2 (07/30/19 10:27 AM) Problem List Condition Effective Dates Status Health Status Informan t HTN Active (hypertension)(Confi rmed)1 Hypercholesteremia(C Active onfirmed) Migraine Resolved headache(Confirmed) Substance Resolved abuse(Confirmed)2 1takes b/p meds 2Meth - last used 9 days ago Allergies, Adverse Reactions, Alerts Substance Reaction Severity Status Vistaril Active traZODone Active Medications Augmentin 875 mg oral tablet 875 mg = 1 tab, PO, BID, X 10 day, # 20 tab, 0 Refill(s), Pharmacy: [facility]/pharmacy #[id number] Start Date: 07/30/19 Stop Date: 08/09/19 Status: Ordered doxycycline monohydrate 100 mg oral tablet 100 mg = 1 tab, PO, Q12H, X 10 day, # 20 tab, 0 Refill(s), Pharmacy: [facility]/pharmac y #[id number] Start Date: 07/30/19 Stop Date: 08/09/19 Status: Ordered DuoNeb inhalation solution 9 mL, Route: NEB, Drug Form: SOLN, Dosing Weight 108.182, kg, PRN, PRN Respirato ry Pathway, Start date: 07/30/19 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 Assessment and Plan No data available for this section
--- OUTSIDE RECORDS SUMMARY | 2020-03-27 22:40 | XMS REPORT | Summary of Care ---
Author Author [facility] Organization [facility] Address Unknown Phone Unavailable Encounter J CARLOS Garcia(MERRY) [id number] Date(s): 11/20/16 - 11/24/[address] [address]- Discharge Disposition: Home or Self Care Attending Physician: Le Waterman MD Admitting Physician: Le Waterman MD Vital Signs 1 2 3 Most recent to oldest [Reference Range]: 165.1 cm (11/20/16 8:46 AM) Height 138.6 kg (11/24/16 4:50 AM) 140.909 kg (11/22/16 5:00 AM) Current Weight 98.4 DegF (11/24/16 4:00 PM) 98.1 DegF (11/24/16 12:00 PM) 98.7 DegF (11/24/16 8:00 AM) Temperature Oral [96.4-99.1 DegF] 150/83 mmHg *HI* (11/24/16 6:26 PM) 130/85 mmHg (11/24/16 4:00 PM) 135/81 mmHg (11/24/16 12:00 PM) Blood Pressure [90-140/60-90 mmHg] 16 BRMIN (11/24/16 6:26 PM) 18 BRMIN (11/24/16 4:00 PM) 18 BRMIN (11/24/16 12:00 PM) Respiratory Rate [14-20 BRMIN] 72 bpm (11/24/16 6:26 PM) 75 bpm (11/24/16 4:00 PM) 75 bpm (11/24/16 12:00 PM) Peripheral Pulse Rate [60-100 bpm] 138.6 kg (11/23/16 4:21 AM) 139.5 kg (11/20/16 2:00 PM) 139.5 kg (11/20/16 8:46 AM) Weight 51.18 m2 (11/20/16 8:46 AM) Body Mass Index Problem List Condition Effective Dates Status Health Status Informan t HTN Active (hypertension)(Confi rmed)1 Hypercholesteremia(C Active onfirmed) Migraine Resolved headache(Confirmed) Substance Resolved abuse(Confirmed)2 1takes b/p meds 2Meth - last used 9 days ago Allergies, Adverse Reactions, Alerts Substance Reaction Severity Status Vistaril Active Medications Benadryl 12.5 mg, 0.25 mL, Route: IVP, Drug form: INJ, ONCE, Dosing Weight 138.6, kg, Sta rt date: 11/23/16 12:25:00 CDT, Stop date: 11/23/16 12:25:00 CDT Notes: (Same as: Benadryl) Start Date: 11/23/16 Stop Date: 11/23/16 Status: Completed buprenorphine-naloxone 1 tab, Route: SL, Drug Form: TAB, Daily, Start date: 11/23/16 13:48:00 CDT, Dura tion: 30 day, Stop date: 12/23/16 9:00:00 CDT Notes: Same as: Suboxone Non-Formulary Start Date: 11/23/16 Stop Date: 11/24/16 Status: Discontinued buprenorphine-naloxone 8 mg-2 mg sublingual tablet, disintegrating 1 tab, Route: SL, Drug Form: TAB, Dosing Weight 138.6, kg, Daily, Start date: 11:50:00 CDT, Duration: 30 day, Stop date: 12/23/16 9:00:00 CDT Notes: Same as: Suboxone Non-Formulary Start Date: 11/23/16 Stop Date: 11/23/16 Status: Deleted busPIRone 15 mg oral tablet 15 mg = 1 tab, PO, TID, # 90 tab, 0 Refill(s) Start Date: 11/20/16 Stop Date: 11/24/16 Status: Discontinued calcium carbonate 500 mg (200 mg elemental calcium) oral tablet 1,000 mg, 2 tab, Route: PO, Drug form: CHEWTAB, PRN, Dosing Weight 139.5, kg, TN N Abnormal Lab Result, FOR ICU USE ONLY, Start date: 11/22/16 6:40:00 CDT, Durat ion: 30 day, Stop date: 12/22/16 6:39:00 CDT Notes: (Same As: Yaneliss)Calcium Carbonate 500 mg = 200 mg elemental calcium Dose = mg calcium carbonate ( mg elemental calcium) Start Date: 11/22/16 Stop Date: 11/24/16 Status: Discontinued calcium carbonate 500 mg (200 mg elemental calcium) oral tablet 500 mg, 1 tab, Route: PO, Drug form: CHEWTAB, PRN, Dosing Weight 139.5, kg, PRN Abnormal Lab Result, FOR ICU USE ONLY, Start date: 11/22/16 6:40:00 CDT, Duratio n: 30 day, Stop date: 12/22/16 6:39:00 CDT Notes: (Same As: Yaneliss)Calcium Carbonate 500 mg = 200 mg elemental calcium Dose = mg calcium carbonate ( mg elemental calcium) Start Date: 11/22/16 Stop Date: 11/24/16 Status: Discontinued calcium gluconate + sodium chloride 0.9% INJ 50 mL 1 gm, 10 mL, Route: IVPB, PRN, Dosing Weight 139.5, kg, PRN Abnormal Lab Result, Start date: 11/22/16 6:40:00 CDT, Duration: 30 day, Stop date: 12/22/16 6:39:00 CDT, FOR ICU USE ONLY Notes: WASTE: F/P - Sink; E - Municipal Trash Bin Start Date: 11/22/16 Stop Date: 11/24/16 Status: Discontinued cefTRIAXone 2 gm, Route: IVPB, Drug form: PDR/INJ, [id number], Dosing Weight 139.5, kg, Start da te: 11/20/16 19:00:00 CDT, Duration: 30 day, Stop date: 12/20/16 11:00:00 CDT Start Date: 11/20/16 Stop Date: 11/20/16 Status: Canceled cefTRIAXone + sodium chloride 0.9% INJ 100 mL 2 gm, Route: IVPB, ONCE, Dosing Weight 139.5, kg, Priority: STAT, Start date: 11:48:00 CDT, Stop date: 11/20/16 11:48:00 CDT Notes: (Same As: Rocephin).Use with 100 mL NS and infuse over 30 min MEDICA TION WASTE Product Size: 1999 mgProduct Wasted: ___ mg Start Date: 11/20/16 Stop Date: 11/20/16 Status: Completed cefTRIAXone + sodium chloride 0.9% INJ 100 mL 2 gm, Route: IVPB, [id number], Dosing Weight 139.5, kg, Start date: 11/21/16 0:00:0 0 CDT, Duration: 30 day, Stop date: 12/20/16 12:00:00 CDT Notes: (Same As: Rocephin).Use with 100 mL NS and infuse over 30 min MEDICA TION WASTE Product Size: 1999 mgProduct Wasted: ___ mg Start Date: 11/21/16 Stop Date: 11/23/16 Status: Discontinued cefTRIAXone + sodium chloride 0.9% INJ 100 mL 2 gm, Route: IVPB, [id number], Dosing Weight 139.5, kg, Start date: 11/20/16 15:00: 00 CDT, Duration: 30 day, Stop date: 12/20/16 3:00:00 CDT Notes: (Same As: Rocephin).Use with 100 mL NS and infuse over 30 min MEDICA TION WASTE Product Size: 1999 mgProduct Wasted: ___ mg Start Date: 11/20/16 Stop Date: 11/20/16 Status: Deleted Centrum oral tablet 1 tab, PO, Daily, # 30 tab, 0 Refill(s) Start Date: 11/20/16 Status: Ordered cloNIDine 0.1 mg oral tablet 0.1 mg, 1 tab, Route: PO, Drug form: TAB, TID, Dosing Weight 139.5, kg, PRN Hype rtension, SBP>180 or DBP>120, Start date: 11/21/16 6:58:00 CDT, Duration: 30 day, Stop date: 12/21/16 6:57:00 CDT Notes: (Same As: Catapres) Start Date: 11/21/16 Stop Date: 11/21/16 Status: Discontinued cloNIDine 0.1 mg/24 hr transdermal film, extended release 1 patch, Route: TOP, Drug Form: ERFILM, Dosing Weight 139.5, kg, Q7D, Start date : 11/21/16 9:00:00 CDT, Duration: 30 day, Stop date: 12/19/16 9:00:00 CDT Notes: Patch delivers 0.1 mg/24 hours; Patch is applied weekly. "Remove old pat ch before application of new patch" (Same As: [id number]) Start Date: 11/21/16 Stop Date: 11/21/16 Status: Discontinued cloNIDine 0.2 mg oral tablet 0.2 mg, 2 tab, Route: PO, Drug form: TAB, TID, Dosing Weight 138.6, kg, Start da te: 11/23/16 16:00:00 CDT, Duration: 30 day, Stop date: 12/23/16 13:00:00 CDT Notes: (Same As: Catapres) Start Date: 11/23/16 Stop Date: 11/24/16 Status: Discontinued cloNIDine 0.2 mg oral tablet PO, TID, 0 Refill(s) Start Date: 11/24/16 Status: Ordered cloNIDine 0.3 mg/24 hr transdermal film, extended release 1 patch, Route: TOP, Drug Form: ERFILM, Dosing Weight 139.5, kg, Q7D, Start date : 11/21/16 19:00:00 CDT, Duration: 30 day, Stop date: 12/19/16 9:00:00 CDT Notes: Patch delivers 0.3 mg/24 hours; Patch is applied weekly. [id number]. "Remove old patch before application of new patch" Start Date: 11/21/16 Stop Date: 11/24/16 Status: Discontinued cloNIDine 0.3 mg/24 hr transdermal film, extended release 1 patch, TOP, Q7D, 0 Refill(s) Start Date: 11/24/16 Stop Date: 11/24/16 Status: Deleted Cymbalta 30 mg, 1 cap, Route: PO, Drug form: DRC, Bedtime, Dosing Weight 139.5, kg, Start date: 11/20/16 21:00:00 CDT, Duration: 30 day, Stop date: 12/19/16 21:00:00 CDT Notes: (Same as: Cymbalta) (Do Not Crush) Start Date: 11/20/16 Stop Date: 11/21/16 Status: Discontinued Cymbalta 60 mg, 2 cap, Route: PO, Drug form: DRC, QAM, Dosing Weight 139.5, kg, Start justen e: 11/21/16 9:00:00 CDT, Duration: 30 day, Stop date: 12/20/16 9:00:00 CDT Notes: (Same as: Cymbalta) (Do Not Crush) Start Date: 11/21/16 Stop Date: 11/21/16 Status: Canceled Cymbalta 30 mg oral delayed release capsule 30 mg = 1 cap, PO, Bedtime, # 90 cap, 0 Refill(s) Start Date: 11/20/16 Stop Date: 11/24/16 Status: Discontinued Cymbalta 30 mg oral delayed release capsule 30 mg = 1 cap, PO, Bedtime, # 30 cap, 0 Refill(s) Start Date: 11/24/16 Status: Ordered Cymbalta 60 mg oral delayed release capsule 60 mg = 1 cap, PO, QAM, # 30 cap, 1 Refill(s) Start Date: 11/20/16 Stop Date: 11/24/16 Status: Discontinued Cymbalta 60 mg oral delayed release capsule 60 mg = 1 cap, PO, QAM, # 30 cap, 0 Refill(s) Start Date: 11/24/16 Status: Ordered D5W 1/2NS 1,000 mL 1,000 mL, Rate: 150 ml/hr, Infuse over: 6.7 hr, Route: IV, Dosing Weight 139.5 k g, Total Volume: 1,000, Start date: 11/23/16 2:31:00 CDT, Duration: 30 day, Stop date: 12/23/16 2:30:00 CDT Start Date: 11/23/16 Stop Date: 11/23/16 Status: Discontinued D5W 1/2NS 1,000 mL + M.V.I.-12 10 mL Daily 1,000 mL, Rate: 150 ml/hr, Infuse over: 6.7 hr, Route: IV, Dosing Weight 139.5 k g, Total Volume: 1,010, Start date: 11/22/16 14:14:00 CDT, Duration: 30 day, Sto p date: 12/22/16 14:13:00 CDT Start Date: 11/22/16 Stop Date: 11/23/16 Status: Discontinued Diamox 250 mg, Route: IVP, Drug form: PDR/INJ, Daily, Dosing Weight 139.5, kg, Priority : NOW, Start date: 11/22/16 14:12:00 CDT, Duration: 30 day, Stop date: 12/22/16 9:00:00 CDT Notes: (Same as: Diamox) Start Date: 11/22/16 Stop Date: 11/24/16 Status: Discontinued gabapentin 300 mg oral capsule 300 mg, 1 cap, Route: PO, Drug form: CAP, ONCE, Dosing Weight 138.6, kg, Start d ate: 11/23/16 11:47:00 CDT, Stop date: 11/23/16 11:47:00 CDT Notes: (Same as: Neurontin) Start Date: 11/23/16 Stop Date: 11/23/16 Status: Completed gabapentin 300 mg oral capsule 300 mg = 1 cap, PO, TID, # 90 cap, 1 Refill(s) Start Date: 11/20/16 Stop Date: 11/24/16 Status: Discontinued Haldol 5 mg, 1 mL, Route: IV, Drug form: INJ, Q4H, Dosing Weight 139.5, kg, PRN Anxiety , Start date: 11/20/16 14:45:00 CDT, Duration: 30 day, Stop date: 12/20/16 14:44 :00 CDT Notes: (Same as: Haldol) Start Date: 11/20/16 Stop Date: 11/24/16 Status: Discontinued heparin 5,000 unit, 1 mL, Route: SUB-Q, Drug form: INJ, Q8H, Dosing Weight 139.5, kg, Co nsider for obese patients, Start date: 11/21/16 16:00:00 CDT, Duration: 30 day, Stop date: 12/21/16 8:00:00 CDT Notes: porcine heparin Start Date: 11/21/16 Stop Date: 11/24/16 Status: Discontinued hydrALAZINE 10 mg, 0.5 mL, Route: IVP, Drug form: INJ, ONCE, Dosing Weight 139.5, kg, Start date: 11/20/16 14:43:00 CDT, Stop date: 11/20/16 14:43:00 CDT Notes: (Same as: Apresoline)Push over 5 minutes Start Date: 11/20/16 Stop Date: 11/20/16 Status: Completed hydromorphone 1 mg, 0.5 mL, Route: IVP, Drug form: INJ, ONCE, Dosing Weight 138.6, kg, Priorit y: STAT, Start date: 11/23/16 12:18:00 CDT, Stop date: 11/23/16 12:18:00 CDT Notes: Same as Dilaudid Start Date: 11/23/16 Stop Date: 11/23/16 Status: Completed hydromorphone 1 mg, 0.5 mL, Route: IVP, Drug form: INJ, ONCE, Dosing Weight 138.6, kg, Priorit y: STAT, Start date: 11/23/16 10:02:00 CDT, Stop date: 11/23/16 10:02:00 CDT Notes: Same as Dilaudid Start Date: 11/23/16 Stop Date: 11/23/16 Status: Completed ibuprofen 400 mg oral tablet 800 mg = 2 tab, PO, TID, PRN Pain, # 120 tab, 0 Refill(s) Start Date: 11/20/16 Stop Date: 11/24/16 Status: Discontinued labetalol 20 mg, 4 mL, Route: IVP, Drug form: INJ, ONCE, Dosing Weight 139.5, kg, Start da te: 11/20/16 17:19:00 CDT, Stop date: 11/20/16 17:19:00 CDT Notes: (Same as: Normodyne, Trandate)Push over 2 minutes Give bolus over 2-3 mi nutes. Start Date: 11/20/16 Stop Date: 11/20/16 Status: Completed labetalol 20 mg, 4 mL, Route: IVP, Drug form: INJ, ONCE, Dosing Weight 139.5, kg, Start da te: 11/21/16 14:07:00 CDT, Stop date: 11/21/16 14:07:00 CDT Notes: (Same as: Normodyne, Trandate)Push over 2 minutes Give bolus over 2-3 mi nutes. Start Date: 11/21/16 Stop Date: 11/21/16 Status: Completed lidocaine topical patch (5% film) 1 patch, Route: TOP, Daily, Drug form: FILM, Start date: 11/24/16 11:30:00 CDT, Duration: 30 day, Stop date: 12/24/16 9:00:00 CDT Notes: Apply only once for up to 12 hours in [id number] period (12 hours on and 12 hours off).(Same as: Lidoderm)"Remove old patch before application of new patch" Start Date: 11/24/16 Stop Date: 11/24/16 Status: Discontinued magnesium oxide 800 mg, 2 tab, Route: PO, Drug form: TAB, PRN, Dosing Weight 139.5, kg, PRN Abno rmal Lab Result, FOR ICU USE ONLY, Start date: 11/22/16 6:40:00 CDT, Duration: 3 0 day, Stop date: 12/22/16 6:39:00 CDT Notes: (Same as: Mag-Ox 400)Magnesium oxide [id number] elemental magnesiumDose= ____mg magnesium oxide (___mg elemental magnesium) Start Date: 11/22/16 Stop Date: 11/24/16 Status: Discontinued magnesium sulfate 2 gm, 50 mL, Route: IVPB, Drug form: INJ, PRN, Dosing Weight 139.5, kg, PRN Abno rmal Lab Result, Start date: 11/22/16 6:40:00 CDT, Duration: 30 day, Stop date: 12/22/16 6:39:00 CDT, FOR ICU USE ONLY Notes: WASTE: F/P - Sink; E - Municipal Trash Bin Start Date: 11/22/16 Stop Date: 11/24/16 Status: Discontinued paliperidone 6 mg, Route: PO, Drug form: ERTAB, QAM, Dosing Weight 139.5, kg, Start date: 10/08 9:00:00 CDT, Duration: 30 day, Stop date: 12/20/16 9:00:00 CDT Start Date: 11/21/16 Stop Date: 11/21/16 Status: Canceled paliperidone 3 mg, Route: PO, Drug form: ERTAB, QAM, Dosing Weight 139.5, kg, Start date: 10/08 9:00:00 CDT, Duration: 30 day, Stop date: 12/20/16 9:00:00 CDT Start Date: 11/21/16 Stop Date: 11/21/16 Status: Canceled paliperidone 3 mg oral tablet, extended release 3 mg = 1 tab, PO, QAM, 0 Refill(s) Start Date: 11/20/16 Status: Ordered paliperidone 6 mg oral tablet, extended release 6 mg = 1 tab, PO, QAM, # 30 tab, 0 Refill(s) Start Date: 11/20/16 Status: Ordered potassium chloride 10 mEq, 100 mL, Route: IVPB, Drug form: INJ, PRN, Dosing Weight 139.5, kg, PRN A bnormal Lab Result, Via peripheral line, Start date: 11/22/16 6:40:00 CDT, Durat ion: 30 day, Stop date: 12/22/16 6:39:00 CDT, FOR ICU USE ONLY Notes: Infuse at a rate of 10 mEq/hr.(Same as: KCL) Start Date: 11/22/16 Stop Date: 11/24/16 Status: Discontinued potassium chloride 20 mEq, 1 tab, Route: PO, Drug form: ERTAB, PRN, Dosing Weight 139.5, kg, PRN Ab normal Lab Result, Start date: 11/22/16 6:40:00 CDT, Duration: 30 day, Stop date : 12/22/16 6:39:00 CDT, FOR ICU USE ONLY Notes: (Same as: K-Dur 20)"Do Not Crush" With food and full glass of water Start Date: 11/22/16 Stop Date: 11/24/16 Status: Discontinued potassium chloride 20 mEq, 15 mL, Route: NJ, Drug form: LIQ, PRN, Dosing Weight 139.5, kg, PRN Abno rmal Lab Result, Start date: 11/22/16 6:40:00 CDT, Duration: 30 day, Stop date: 12/22/16 6:39:00 CDT, FOR ICU USE ONLY Notes: (Same as: Potassium Chloride) Start Date: 11/22/16 Stop Date: 11/24/16 Status: Discontinued potassium chloride 20 mEq, 100 mL, Route: IVPB, Drug form: INJ, PRN, Dosing Weight 139.5, kg, PRN A bnormal Lab Result, Via central line, Start date: 11/22/16 6:40:00 CDT, Duration : 30 day, Stop date: 12/22/16 6:39:00 CDT, FOR ICU USE ONLY Notes: (Same as: KCL) Infuse no faster than 10 mEq/hr if given peripherally. Start Date: 11/22/16 Stop Date: 11/24/16 Status: Discontinued potassium phosphate + sodium chloride 0.9% INJ 250 mL 45 mmol, 15 mL, Route: IVPB, PRN, Dosing Weight 139.5, kg, PRN Abnormal Lab Resu lt, Start date: 11/22/16 6:40:00 CDT, Duration: 30 day, Stop date: 12/22/16 6:39 :00 CDT, FOR ICU USE ONLY Notes: (Same as: K Phosphate.) 1 mMol phoshate has 1.47 mEq potassium Infuse o karolina 4 hours Start Date: 11/22/16 Stop Date: 11/24/16 Status: Discontinued potassium phosphate + sodium chloride 0.9% INJ 250 mL 30 mmol, 10 mL, Route: IVPB, PRN, Dosing Weight 139.5, kg, PRN Abnormal Lab Resu lt, Start date: 11/22/16 6:40:00 CDT, Duration: 30 day, Stop date: 12/22/16 6:39 :00 CDT, FOR ICU USE ONLY Notes: (Same as: K Phosphate.) 1 mMol phoshate has 1.47 mEq potassium Infuse o karolina 4 hours Start Date: 11/22/16 Stop Date: 11/24/16 Status: Discontinued potassium phosphate + sodium chloride 0.9% INJ 250 mL 15 mmol, 5 mL, Route: IVPB, PRN, Dosing Weight 139.5, kg, PRN Abnormal Lab Resul t, Start date: 11/22/16 6:40:00 CDT, Duration: 30 day, Stop date: 12/22/16 6:39: 00 CDT, FOR ICU USE ONLY Notes: (Same as: K Phosphate.) 1 mMol phoshate has 1.47 mEq potassium Infuse o karolina 4 hours Start Date: 11/22/16 Stop Date: 11/24/16 Status: Discontinued potassium phosphate-sodium phosphate 250 mg-280 mg-160 mg oral powder for recons titution 2 pkt, Route: PO, Drug Form: PDR/REC, Dosing Weight 139.5, kg, PRN, PRN Abnormal Lab Result, FOR ICU USE ONLY, Start date: 11/22/16 6:40:00 CDT, Duration: 30 da y, Stop date: 12/22/16 6:39:00 CDT Notes: (Same as: Phos-NaK) Each 1.5 gm pkt has 250mg phosphorous. Mix w/2.5oz w ater and stir. Start Date: 11/22/16 Stop Date: 11/24/16 Status: Discontinued Prilosec 40 mg, Route: PO, Drug form: DRC, Daily, Dosing Weight 139.5, kg, Start date: 9:00:00 CDT, Duration: 30 day, Stop date: 12/20/16 9:00:00 CDT Start Date: 11/21/16 Stop Date: 11/20/16 Status: Deleted Prilosec 20 mg oral delayed release capsule 40 mg = 2 cap, PO, Daily, # 30 cap, 1 Refill(s) Start Date: 11/20/16 Status: Ordered promethazine 25 mg oral tablet 25 mg = 1 tab, PO, Q6H, PRN Nausea/Vomiting, # 12 tab, 0 Refill(s) Start Date: 11/20/16 Stop Date: 11/24/16 Status: Discontinued Protonix 40 mg, 1 tab, Route: PO, Drug form: ECTAB, Before Dinner, Start date: 11/20/16 1 6:30:00 CDT, Duration: 30 day, Stop date: 12/19/16 16:30:00 CDT Notes: Tablet should not be chewed or crushed.(Same as: Protonix) Start Date: 11/20/16 Stop Date: 11/21/16 Status: Discontinued Protonix + sodium chloride 0.9% 10 ml INJ (PF) 10 mL 40 mg, Route: IVP, BID, Dosing Weight 139.5, kg, Start date: 11/20/16 17:38:00 C DT, Duration: 30 day, Stop date: 12/20/16 17:00:00 CDT Notes: For IV push reconstitute with 10 ml 0.9% sodium chloride and push over 2 minutes. (Same as: Protonix) Start Date: 11/20/16 Stop Date: 11/21/16 Status: Discontinued Protonix + sodium chloride 0.9% 10 ml INJ (PF) 10 mL 40 mg, Route: IVP, Drug form: INJ, Before Breakfast, Dosing Weight 139.5, kg, St art date: 11/21/16 7:58:00 CDT, Duration: 30 day, Stop date: 12/21/16 7:30:00 CD T Notes: For IV push reconstitute with 10 ml 0.9% sodium chloride and push over 2 minutes. (Same as: Protonix) Start Date: 11/21/16 Stop Date: 11/24/16 Status: Discontinued remove patch 1 patch, Route: TOP, Drug form: ERFILM, Q7D, Start date: 11/21/16 9:00:00 CDT, D uration: 30 day, Stop date: 12/19/16 8:55:00 CDT Notes: Remove old patch before application of new patch. Start Date: 11/21/16 Stop Date: 11/21/16 Status: Discontinued remove patch 1 patch, Route: TOP, Bedtime, Drug form: ERFILM, Start date: 11/23/16 23:30:00 C DT, Duration: 30 day, Stop date: 12/23/16 21:00:00 CDT Notes: Remove patch 12 hours after application each day. Start Date: 11/23/16 Stop Date: 11/24/16 Status: Discontinued remove patch 1 patch, Route: TOP, Drug form: ERFILM, Q7D, Start date: 11/21/16 19:00:00 CDT, Duration: 30 day, Stop date: 12/19/16 9:00:00 CDT Notes: Remove old patch before application of new patch. Start Date: 11/21/16 Stop Date: 11/24/16 Status: Discontinued Sodium Chloride 0.9% (Bolus) IV 1,000 mL, 1000 ml/hr, Infuse Over: 1 hr, Route: IV, 1,000, Drug form: INJ, ONCE, Priority: STAT, Dosing Weight 139.5 kg, Start date: 11/20/16 8:51:00 CDT, Durat ion: 1 doses or times, Stop date: 11/20/16 8:51:00 CDT Start Date: 11/20/16 Stop Date: 11/20/16 Status: Completed Sodium Chloride 0.9% (Bolus) IV 1,000 mL, 1000 ml/hr, Infuse Over: 1 hr, Route: IV, 1,000, Drug form: INJ, ONCE, Priority: STAT, Dosing Weight 139.5 kg, Start date: 11/20/16 9:59:00 CDT, Durat ion: 1 doses or times, Stop date: 11/20/16 9:59:00 CDT Start Date: 11/20/16 Stop Date: 11/20/16 Status: Completed sodium phosphate + sodium chloride 0.9% INJ 250 mL 15 mmol, 5 mL, Route: IVPB, PRN, Dosing Weight 139.5, kg, PRN Abnormal Lab Resul t, Start date: 11/22/16 6:40:00 CDT, Duration: 30 day, Stop date: 12/22/16 6:39: 00 CDT, FOR ICU USE ONLY Start Date: 11/22/16 Stop Date: 11/24/16 Status: Discontinued sodium phosphate + sodium chloride 0.9% INJ 250 mL 30 mmol, 10 mL, Route: IVPB, PRN, Dosing Weight 139.5, kg, PRN Abnormal Lab Resu lt, Start date: 11/22/16 6:40:00 CDT, Duration: 30 day, Stop date: 12/22/16 6:39 :00 CDT, FOR ICU USE ONLY Start Date: 11/22/16 Stop Date: 11/24/16 Status: Discontinued sodium phosphate + sodium chloride 0.9% INJ 250 mL 45 mmol, 15 mL, Route: IVPB, PRN, Dosing Weight 139.5, kg, PRN Abnormal Lab Resu lt, Start date: 11/22/16 6:40:00 CDT, Duration: 30 day, Stop date: 12/22/16 6:39 :00 CDT, FOR ICU USE ONLY Start Date: 11/22/16 Stop Date: 11/24/16 Status: Discontinued Suboxone 4 mg-1 mg sublingual film 1 ea, SL, BID, # 28 ea, 0 Refill(s) Start Date: 11/24/16 Stop Date: 12/08/16 Status: Ordered Suboxone 4 mg-1 mg sublingual film 1 ea, SL, BID, # 30 ea, 0 Refill(s) Start Date: 11/20/16 Stop Date: 11/24/16 Status: Discontinued tizanidine 4 mg oral tablet 4 mg = 1 tab, PO, TID, PRN for muscle spasms, # 90 tab, 0 Refill(s) Start Date: 11/20/16 Status: Ordered Topamax 100 mg, 1 tab, Route: PO, Drug form: TAB, Q12H, Dosing Weight 138.6, kg, Start d ate: 11/23/16 21:00:00 CDT, Duration: 30 day, Stop date: 12/23/16 9:00:00 CDT Notes: (Same As: Topamax)"Do Not Crush" Start Date: 11/23/16 Stop Date: 11/24/16 Status: Discontinued Topamax 50 mg, 2 tab, Route: PO, Drug form: TAB, QAM, Dosing Weight 139.5, kg, Start justen e: 11/21/16 9:00:00 CDT, Duration: 30 day, Stop date: 12/20/16 9:00:00 CDT Notes: (Same As: Topamax)"Do Not Crush" Start Date: 11/21/16 Stop Date: 11/24/16 Status: Discontinued Topamax 75 mg, 3 tab, Route: PO, Drug form: TAB, Bedtime, Dosing Weight 139.5, kg, Start date: 11/20/16 21:00:00 CDT, Duration: 30 day, Stop date: 12/19/16 21:00:00 CDT Notes: (Same As: Topamax)"Do Not Crush" Start Date: 11/20/16 Stop Date: 11/24/16 Status: Discontinued Topamax 25 mg oral tablet 75 mg = 3 tab, PO, Bedtime, 0 Refill(s) Start Date: 11/20/16 Stop Date: 11/24/16 Status: Discontinued Topamax 25 mg oral tablet 75 mg = 3 tab, PO, Bedtime, # 90 tab, 0 Refill(s) Start Date: 11/24/16 Stop Date: 12/24/16 Status: Ordered Topamax 50 mg oral tablet 50 mg = 1 tab, PO, QAM, # 30 tab, 0 Refill(s) Start Date: 11/24/16 Stop Date: 12/24/16 Status: Ordered Topamax 50 mg oral tablet 50 mg = 1 tab, PO, QAM, # 60 tab, 0 Refill(s) Start Date: 11/20/16 Stop Date: 11/24/16 Status: Discontinued trazodone 100 mg oral tablet 100 mg = 1 tab, PO, Bedtime, # 30 tab, 1 Refill(s) Start Date: 11/20/16 Stop Date: 11/24/16 Status: Discontinued Tylenol 650 mg, 2 tab, Route: PO, Drug form: TAB, Q6H, Dosing Weight 139.5, kg, PRN Pain 1-3/Temp > 100.4 F, Start date: 11/21/16 20:04:00 CDT, Duration: 30 day, Stop date: 12/21/16 20:03:00 CDT Notes: Do not exceed 4 gm/day. (Same as: Tylenol) Start Date: 11/21/16 Stop Date: 11/24/16 Status: Discontinued Tylenol Caplet Extra Strength 500 mg oral tablet 500 mg = 1 tab, PO, Q8H, PRN Pain, # 60 tab, 0 Refill(s) Start Date: 11/20/16 Stop Date: 11/30/16 Status: Ordered vancomycin 2,000 mg, 500 mL, Route: IVPB, Drug form: SOLN, ONCE, Dosing Weight 139.5, kg, P riority: STAT, Start date: 11/20/16 11:48:00 CDT, Stop date: 11/20/16 11:48:00 C DT Notes: TIME CRITICAL MEDICATIONSame as: Vancocin Infusion rate< 1000 mg: infuse over 1 [id number] - 1500 mg: infuse over 1.5 [id number] - 2000 mg: infuse over 2 hours> 2001 mg: infuse over 2.5 hours Start Date: 11/20/16 Stop Date: 11/20/16 Status: Completed vancomycin 1.5 gm, 250 mL, Route: IVPB, Drug form: INJ, [id number], Dosing Weight 139.5, kg, St art date: 11/20/16 20:00:00 CDT, Duration: 30 day, Stop date: 12/20/16 12:00:00 CDT Notes: TIME CRITICAL MEDICATIONSame as: Vancocin-NS (premixed)Infusion rate< 1000 mg: infuse over 1 [id number] - 1500 mg: infuse over 1.5 [id number] - 2000 mg: infuse over 2 hours> 2001 mg: infuse over 2.5 hours Start Date: 11/20/16 Stop Date: 11/21/16 Status: Discontinued vancomycin 2,000 mg, 500 mL, Route: IVPB, Drug form: SOLN, Q8H, Dosing Weight 139.5, kg, St art date: 11/21/16 21:00:00 CDT, Stop date: 12/21/16 10:00:00 CDT Notes: TIME CRITICAL MEDICATIONSame as: Vancocin Infusion rate< 1000 mg: infuse over 1 [id number] - 1500 mg: infuse over 1.5 [id number] - 2000 mg: infuse over 2 hours> 2001 mg: infuse over 2.5 hours Start Date: 11/21/16 Stop Date: 11/23/16 Status: Discontinued vancomycin 2,000 mg, Route: IVPB, Drug form: INJ, [id number], Dosing Weight 139.5, kg, Start d ate: 11/20/16 21:00:00 CDT, Duration: 30 day, Stop date: 12/20/16 9:00:00 CDT, P ediatric Dosing Start Date: 11/20/16 Stop Date: 11/20/16 Status: Canceled Zofran 4 mg oral tablet 8 mg = 2 tab, PO, TID, PRN Nausea & Vomiting, # 10 tab, 0 Refill(s) Start Date: 11/20/16 Stop Date: 11/24/16 Status: Discontinued Results ELECTROLYTES 1 2 3 Most recent to oldest [Reference Range]: 144 mEq/L (11/24/16 3:10 AM) 145 mEq/L (11/23/16 2:41 AM) 143 mEq/L (11/22/16 3:09 AM) Sodium Lvl [135-145 mEq/L] 3.8 mEq/L (11/24/16 3:10 AM) 3.4 mEq/L *LOW* (11/23/16 3:51 PM) 3.4 mEq/L *LOW* (11/23/16 2:41 AM) Potassium Lvl [3.5-5.1 mEq/L] 111 mEq/L *HI* (11/24/16 3:10 AM) 110 mEq/L *HI* (11/23/16 2:41 AM) 103 mEq/L (11/22/16 3:09 AM) Chloride Lvl [95-109 mEq/L] 26 mEq/L (11/24/16 3:10 AM) 27 mEq/L (11/23/16 2:41 AM) 32 mEq/L (11/22/16 3:09 AM) CO2 [24-32 mEq/L] 10.8 mEq/L (11/24/16 3:10 AM) 11.4 mEq/L (11/23/16 2:41 AM) 11.4 mEq/L (11/22/16 3:09 AM) AGAP [10.0-20.0 mEq/L] CHEM PANEL 1 2 3 Most recent to oldest [Reference Range]: 0.49 mg/dL *LOW* (11/24/16 3:10 AM) 0.45 mg/dL *LOW* (11/23/16 2:41 AM) 0.48 mg/dL *LOW* (11/22/16 3:09 AM) Creatinine Lvl [0.50-1.40 mg/dL] 134 mL/min/1.73m2 1 *NA* (11/24/16 3:10 AM) 138 mL/min/1.73m2 2 *NA* (11/23/16 2:41 AM) 135 mL/min/1.73m2 3 *NA* (11/22/16 3:09 AM) eGFR 12 mg/dL (11/24/16 3:10 AM) 9 mg/dL (11/23/16 2:41 AM) 11 mg/dL (11/22/16 3:09 AM) BUN [7-22 mg/dL] 24 (11/24/16 3:10 AM) 20 (11/23/16 2:41 AM) 17 (11/21/16 6:26 AM) B/C Ratio [6-25] 90 mg/dL (11/24/16 3:10 AM) 96 mg/dL (11/23/16 2:41 AM) 103 mg/dL *HI* (11/22/16 3:09 AM) Glucose Lvl [70-99 mg/dL] 5.8 g/dL *LOW* (11/24/16 3:10 AM) 5.7 g/dL *LOW* (11/23/16 2:41 AM) 6.4 g/dL (11/21/16 6:26 AM) Total Protein [6.4-8.4 g/dL] 2.8 g/dL *LOW* (11/24/16 3:10 AM) 2.7 g/dL *LOW* (11/23/16 2:41 AM) 3.4 g/dL *LOW* (11/21/16 6:26 AM) Albumin Lvl [3.5-5.0 g/dL] 3.0 g/dL (11/24/16 3:10 AM) 3.0 g/dL (11/23/16 2:41 AM) 3.0 g/dL (11/21/16 6:26 AM) Globulin [2.7-4.2 g/dL] 0.9 (11/24/16 3:10 AM) 0.9 (11/23/16 2:41 AM) 1.1 (11/21/16 6:26 AM) A/G Ratio [0.7-1.6] 8.3 mg/dL *LOW* (11/24/16 3:10 AM) 7.9 mg/dL *LOW* (11/23/16 2:41 AM) 7.9 mg/dL *LOW* (11/22/16 3:09 AM) Calcium Lvl [8.5-10.5 mg/dL] 2.2 mg/dL *LOW* (11/23/16 3:51 PM) 0.7 mg/dL 4 *CRIT* (11/23/16 3:09 AM) 4.5 mg/dL (11/20/16 8:53 AM) Phosphorus [2.5-4.5 mg/dL] 2.1 mg/dL (11/23/16 3:09 AM) 2.1 mg/dL (11/20/16 8:53 AM) Magnesium Lvl [1.8-2.4 mg/dL] 51 unit/L (11/24/16 3:10 AM) 27 unit/L (11/23/16 2:41 AM) 45 unit/L (11/21/16 6:26 AM) ALT [0-65 unit/L] 35 unit/L (11/24/16 3:10 AM) 13 unit/L (11/23/16 2:41 AM) 23 unit/L (11/21/16 6:26 AM) AST [0-37 unit/L] 50 unit/L (11/24/16 3:10 AM) 46 unit/L (11/23/16 2:41 AM) 59 unit/L (11/21/16 6:26 AM) Alk Phos [39-136 unit/L] 1.1 mg/dL (11/24/16 3:10 AM) 0.7 mg/dL (11/23/16 2:41 AM) 0.4 mg/dL (11/21/16 6:26 AM) Bili Total [0.2-1.3 mg/dL] 55.0 uMol/L *HI* (11/21/16 4:11 PM) Ammonia [<=45.0 uMol/L] 0.4 mMol/L *LOW* (11/20/16 6:00 PM) 3.5 mMol/L *HI* (11/20/16 9:13 AM) Lactic Acid Lvl [0.5-2.2 mMol/L] 2.8 mmol/L *HI* (11/20/16 8:53 AM) Lactic Acid WB [0.5-2.2 mmol/L] 1Result Comment: The eGFR is calculated using [...] be mul tiplied by the estimated BMI. 2Result Comment: The eGFR is calculated using the [...] be mul tiplied by the estimated BMI. 3Result Comment: The eGFR is calculated using the [...] be mul tiplied by the estimated BMI. 4Result Comment: Critical Result(s) called to Ivania Rivera at 11/23/2016 04:11 by hy. Read back OK. CARDIAC ENZYMES 1 2 3 Most recent to oldest [Reference Range]: 83 unit/L (11/21/16 4:11 PM) Total CK [12-191 unit/L] PARATHYROID PROFILE 1 2 3 Most recent to oldest [Reference Range]: 1.08 mMol/L (11/23/16 3:09 AM) Ca Ion WB [1.05-1.25 mMol/L] 1.08 mMol/L (11/23/16 3:09 AM) Ca Norm WB [1.05-1.25 mMol/L] DRUG SCREEN 1 2 3 Most recent to oldest [Reference Range]: Negative *NA* (11/20/16 8:53 AM) U Amph Scr [Negative] Negative *NA* (11/20/16 8:53 AM) U Venessa Scr [Negative] Positive *ABN* (11/20/16 8:53 AM) U Benzodia Scr [Negative] Negative *NA* (11/20/16 8:53 AM) U Cocaine Scr [Negative] Negative *NA* (11/20/16 8:53 AM) U Opiate Scr [Negative] Negative *NA* (11/20/16 8:53 AM) U Phencyc Scr [Negative] Negative *NA* (11/20/16 8:53 AM) U Cannab Scr [Negative] See Note (11/20/16 8:53 AM) UDS Note TOXICOLOGY 1 2 3 Most recent to oldest [Reference Range]: 1130 *NA* (11/21/16 11:09 AM) Vanco Tr TND 7.7 ug/ml *NA* (11/22/16 4:28 PM) Vanco Lvl 9.4 ug/ml *NA* (11/21/16 11:09 AM) Vanco Tr <2 ug/ml *LOW* (11/21/16 4:11 PM) <2 ug/ml *LOW* (11/20/16 8:53 AM) Acetaminoph Lvl [10-20 ug/ml] 4.7 mg/dL (11/21/16 4:11 PM) <1.7 mg/dL (11/20/16 8:53 AM) Salicylate Lvl [0.0-30.0 mg/dL] <.003 % *NA* (11/21/16 4:11 PM) Etoh (%) <3 mg/dL *NA* (11/21/16 4:11 PM) Ethanol Lvl ENDOCRINOLOGY 1 2 3 Most recent to oldest [Reference Range]: 4.7 ug/dl *NA* (11/22/16 4:28 PM) Cortisol 54.6 ng/mL *NA* (11/22/16 4:28 PM) Prolactin Lvl URINE CHEM 1 2 3 Most recent to oldest [Reference Range]: Negative (11/20/16 8:53 AM) U Preg [Negative] URINE AND STOOL 1 2 3 Most recent to oldest [Reference Range]: Slight *ABN* (11/20/16 8:53 AM) UA Turbidity [Clear] Yellow *NA* (11/20/16 8:53 AM) UA Color [Yellow] 5.0 (11/20/16 8:53 AM) UA pH [5.0-8.0] 1.014 (11/20/16 8:53 AM) UA Spec Grav [<=1.030] Negative mg/dL *NA* (11/20/16 8:53 AM) UA Glucose [Negative mg/dL] Negative (11/20/16 8:53 AM) UA Blood [Negative] Negative *NA* (11/20/16 8:53 AM) UA Ketones 100 mg/dL *ABN* (11/20/16 8:53 AM) UA Protein [Negative mg/dL] <=1.0 mg/dL *NA* (11/20/16 8:53 AM) UA Urobilinogen [0.1-1.0 mg/dL] Negative *NA* (11/20/16 8:53 AM) UA Bili [Negative] Negative (11/20/16 8:53 AM) UA Leuk Est [Negative] Negative (11/20/16 8:53 AM) UA Nitrite [Negative] 1 /HPF (11/20/16 8:53 AM) UA WBC [0-5 /HPF] 1 /HPF (11/20/16 8:53 AM) UA RBC [0-2 /HPF] Occasional /LPF *NA* (11/20/16 8:53 AM) UA Sq Epi [Few /LPF] 2 /LPF (11/20/16 8:53 AM) UA Hyal Cast [0-2 /LPF] Occasional /HPF *NA* (11/20/16 8:53 AM) UA Amorph Madeleine [None Seen /HPF] Few /LPF *NA* (11/20/16 8:53 AM) UA Mucus [None Seen /LPF] BODY FLUIDS 1 2 3 Most recent to oldest [Reference Range]: 63 mg/dL (11/23/16 9:00 AM) Glucose CSF [45-80 mg/dL] 33 mg/dL (11/23/16 9:00 AM) Protein CSF [15-45 mg/dL] 1.4 mMol/L (11/23/16 9:00 AM) Lactic Acid CSF [0.6-2.2 mMol/L] 1 *NA* (11/23/16 9:46 AM) 4 *NA* (11/23/16 9:00 AM) Tube Num CSF Colorless (11/23/16 9:46 AM) Colorless (11/23/16 9:00 AM) Color CSF [Colorless] Clear (11/23/16 9:46 AM) Clear (11/23/16 9:00 AM) Clarity CSF [Clear] Colorless (11/23/16 9:46 AM) Colorless (11/23/16 9:00 AM) Supernat CSF [Colorless] 185 /mm3 *HI* (11/23/16 9:46 AM) 58 /mm3 *HI* (11/23/16 9:00 AM) RBC CSF [0-0 /mm3] 2 /mm3 (11/23/16 9:46 AM) 1 /mm3 (11/23/16 9:00 AM) WBC CSF [0-5 /mm3] IMMUNOLOGY 1 2 3 Most recent to oldest [Reference Range]: Non Reactive (11/23/16 9:00 AM) VDRL Scr CSF [Non Reactive] HEMATOLOGY 1 2 3 Most recent to oldest [Reference Range]: 7.2 K/CMM (11/24/16 3:10 AM) 8.2 K/CMM (11/23/16 2:41 AM) 11.8 K/CMM *HI* (11/22/16 3:09 AM) WBC [3.7-10.4 K/CMM] 4.21 M/CMM (11/24/16 3:10 AM) 4.24 M/CMM (11/23/16 2:41 AM) 4.55 M/CMM (11/22/16 3:09 AM) RBC [4.20-5.40 M/CMM] 11.2 g/dL *LOW* (11/24/16 3:10 AM) 11.3 g/dL *LOW* (11/23/16 2:41 AM) 12.0 g/dL (11/22/16 3:09 AM) Hgb [12.0-16.0 g/dL] 33.8 % *LOW* (11/24/16 3:10 AM) 35.4 % *LOW* (11/23/16 2:41 AM) 37.4 % (11/22/16 3:09 AM) Hct [36.0-48.0 %] 80.3 fL (11/24/16 3:10 AM) 83.5 fL (11/23/16 2:41 AM) 82.2 fL (11/22/16 3:09 AM) MCV [80.0-98.0 fL] 26.5 pg *LOW* (11/24/16 3:10 AM) 26.7 pg *LOW* (11/23/16 2:41 AM) 26.3 pg *LOW* (11/22/16 3:09 AM) MCH [27.0-31.0 pg] 33.0 g/dL (11/24/16 3:10 AM) 32.0 g/dL (11/23/16 2:41 AM) 32.0 g/dL (11/22/16 3:09 AM) MCHC [32.0-36.0 g/dL] 14.8 % *HI* (11/24/16 3:10 AM) 14.6 % *HI* (11/23/16 2:41 AM) 14.4 % (11/22/16 3:09 AM) RDW [11.5-14.5 %] 215 K/CMM (11/24/16 3:10 AM) 196 K/CMM (11/23/16 2:41 AM) 238 K/CMM (11/22/16 3:09 AM) Platelet [133-450 K/CMM] 7.8 fL (11/24/16 3:10 AM) 8.4 fL (11/23/16 2:41 AM) 8.6 fL (11/22/16 3:09 AM) MPV [7.4-10.4 fL] 56.1 % (11/24/16 3:10 AM) 58.1 % (11/23/16 2:41 AM) 73.1 % (11/22/16 3:09 AM) Segs [45.0-75.0 %] 5.0 % (11/21/16 6:26 AM) Bands [0.0-11.0 %] 30.2 % (11/24/16 3:10 AM) 28.6 % (11/23/16 2:41 AM) 17.0 % *LOW* (11/22/16 3:09 AM) Lymphocytes [20.0-40.0 %] 0.0 % (11/21/16 6:26 AM) Atypical Lymphs [<=0.0 %] 10.2 % (11/24/16 3:10 AM) 10.8 % (11/23/16 2:41 AM) 8.6 % (11/22/16 3:09 AM) Monocytes [2.0-12.0 %] 2.4 % (11/24/16 3:10 AM) 1.7 % (11/23/16 2:41 AM) 0.7 % (11/22/16 3:09 AM) Eosinophils [0.0-4.0 %] 1.1 % *HI* (11/24/16 3:10 AM) 0.8 % (11/23/16 2:41 AM) 0.6 % (11/22/16 3:09 AM) Basophils [0.0-1.0 %] 1.0 % (11/21/16 6:26 AM) Metamyelocytes [0.0-1.0 %] 1.0 % *HI* (11/21/16 6:26 AM) Myelocytes [<=0.0 %] 4.1 K/CMM (11/24/16 3:10 AM) 4.8 K/CMM (11/23/16 2:41 AM) 8.6 K/CMM *HI* (11/22/16 3:09 AM) Segs-Bands # [1.5-8.1 K/CMM] 2.2 K/CMM (11/24/16 3:10 AM) 2.3 K/CMM (11/23/16 2:41 AM) 2.0 K/CMM (11/22/16 3:09 AM) Lymphocytes # [1.0-5.5 K/CMM] 0.7 K/CMM (11/24/16 3:10 AM) 0.9 K/CMM *HI* (11/23/16 2:41 AM) 1.0 K/CMM *HI* (11/22/16 3:09 AM) Monocytes # [0.0-0.8 K/CMM] 0.2 K/CMM (11/24/16 3:10 AM) 0.1 K/CMM (11/23/16 2:41 AM) 0.1 K/CMM (11/22/16 3:09 AM) Eosinophils # [0.0-0.5 K/CMM] 0.1 K/CMM (11/24/16 3:10 AM) 0.1 K/CMM (11/23/16 2:41 AM) 0.1 K/CMM (11/22/16 3:09 AM) Basophils # [0.0-0.2 K/CMM] 2 /100WB *NA* (11/21/16 6:26 AM) NRBC Normal (11/23/16 2:41 AM) Normal (11/22/16 3:09 AM) Normal (11/21/16 6:26 AM) RBC Morph Normal (11/23/16 2:41 AM) Normal (11/22/16 3:09 AM) Normal (11/21/16 6:26 AM) Plt Morph 14.1 seconds (11/22/16 4:28 PM) PT [12.0-14.7 seconds] 1.07 (11/22/16 4:28 PM) INR [0.85-1.17] 28.7 seconds (11/22/16 4:28 PM) PTT [22.9-35.8 seconds] MOLECULAR DIAGNOSTIC 1 2 3 Most recent to oldest [Reference Range]: Cerebral Spinal Fluid *NA* (11/23/16 9:00 AM) Source HSV Not Performed 1 (11/23/16 9:00 AM) HSV 1 by PCR [Negative] Not Performed 2 (11/23/16 9:00 AM) HSV 2 by PCR [Negative] Cerebral Spinal Fluid *NA* (11/23/16 9:00 AM) Source CMV Negative (11/23/16 9:00 AM) CMV PCR [Negative] 1Result Comment: CSF contains less than 5 WBC'S and has a normal Protein level. 2Result Comment: CSF contains less than 5 WBC'S and has a normal Protein level. BACTERIAL - SEROLOGY 1 2 3 Most recent to oldest [Reference Range]: Negative (11/21/16 6:15 PM) MRSA by PCR Cerebral Spinal Fluid *NA* (11/23/16 9:00 AM) Source Strep Negative (11/23/16 9:00 AM) Strep pneumoniae Ag [Negative] FUNGAL - SEROLOGY 1 2 3 Most recent to oldest [Reference Range]: Negative (11/23/16 9:00 AM) Crypto Ag CSF [Negative] VIRAL - SEROLOGY 1 2 3 Most recent to oldest [Reference Range]: Negative (11/23/16 9:00 AM) Enterovirus PCR CSF [Negative] Immunizations No data available for this section [...] Counseling No 1Pt currently is admitted at [facility] for psychiatric treatment, states has not had Meth in 9 days. Assessment and Plan Extracted from: Title: Progress Note Author: Le Waterman MD Date: [...] obesity. 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 Prophylaxis Heparin SQ q8h PPI Disposition Continue care in MICU. Extracted from: Title: TIG Consultation Author: Cecy Patterson MD ate: 11/21/16 Consultation Note [employer] [facility] Consult Reason: Hypercapnic respiratory failure despite bipap [...] .9% INJ 100 mL 2 gm IVPB [id number] 200 ml/hr 11/21/16 cloNIDine (cloNIDine 0.1 mg/24 [...] IVPB [id number] 1 66.67 ml/hr Allergies (1) ActiveReaction VistarilNone documented Social History: Tobacco Details: Use: Current every day smoker. Type: Cigarettes. Previous treatment: None. Ready to change: No. Household tobacco concerns: No. Tobacco smoke exposure: None. Did the Patient Smoke Cigarettes Anytime During the Last 365 Days? Yes. Cessation Counseling Provided? No. Substance Abuse Details: Use: Current. Type: Methamphetamines.; Comment(s): Pt currently is admitted at [facility] for psychiatric treatment, states has not had Meth in 9 days. Family History: Father: Heart attack; Stroke Review of Systems: cannot obtain 2/2 hypercapnia Objective: VitalsTmp(F)[id number] 11/21 13:16 35% 11/21 13:00 100 50% 11/21 08:52 100 35% 11/21 07:0097.5 11/21 06:00----[id number] 50% 24 Hr Tmax: 98.4F (36.89c) at 11/21 00:0 0Vital Signs are the last 5 in the past 48 hours. I&ORecordInOutBal 11/223hr Tot 360 0 360 11/123hr Tot 3216 2300 916 Lines, Tubes, and Drains: 11/20/2016 18:00 Indwelling Urinary Cath eter: Urethral 16 Hungarian Indwelling/Continuous 11/20/2016 08:51 Peripheral Lines: Antec ubital Left Over the needle catheter 11/20/2016 08:51 Peripheral Lines: Hand Left 20 gauge Over the needle catheter Continuous Infusions: None Vent: 11/21/2016 13:16 FIO2 (%)35 11/21/2016 13:00 Non-Invasive Vent ModeBIPAP Resp Rate, Set16 PEEP/CPAP4 Ambu Bag Mask to O2Yes Resp Rate, [id number] Peak Pressure (cmH2O)17 SpO2 [id number] Inspiratory [id number] 11/21/2016 03:32 Inspiratory Time1.0 11/20/2016 14:56 Pressure Support7 Exhaled Tidal Vol (ml)368 Physical Exam: GENERAL APPEARANCE: Well developed, well [...] Labs (Last four charted values) WBC H 18.5(NOV 21)H 14.4(NOV 20) Hgb 12.1(NOV 21)13.3(NOV 20) Hct 39.7(NOV 21)41.1(NOV 20) Plt 231(NOV 21)309(NOV 20) Na 142(NOV 21)139(NOV 20) K 4.7(NOV 21)4.6(NOV 20) CO2 H 36(NOV 21)31(NOV 20) Cl 103(NOV 21)100(NOV 20) Cr L 0.41(NOV 21)0.79(NOV 20) BUN 7(NOV 21)9(NOV 20) Glucose Random H 135(NOV 21)H 206(NOV 20) Mg 2.1(NOV 20) Phos 4.5(NOV 20) Ca L 8.1(NOV 21)L 8.4(NOV 20) Diagnostics: no new; cxr from yesterday [...] care time 50 minutes Cecy Patterson Extracted from: Title: History and Physical Author: Vic Gutierrez MD [...] INJ 100 mL, 2 gm, Route: IVPB, [id number], Dosing Weight 139.5, kg, Start date: 11/21/16 [...]
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
--- OUTSIDE RECORDS SUMMARY | 2020-03-27 22:41 | XMS REPORT | Continuity of Care Document ---
Author Author [facility] t Organization [facility] Address [facility] Dennis Collins [address] [place] [address] Phone Unavailable Care Team Providers Care Sack Sewer Name Role Phone Asked, Pcp No PCP Unavailable Noemi Smith Attphys Kim COATES, Jermain Colunga Attphys Kirby Walters Attphys Pawel Hampton Attphys Anjali Santana Attphys Samuel Suarez Attphys Cortez Eisenberg Attphys Yusuf Leonard Attphys Zak Grace Attphys Paul Hernandez Attphys Le Waterman Attphys Ginny Charles Attphys Cadence Bishop Attphys Mike Sheth Attphys Kim COATES, Jermain Cristine Admphys Le Waterman Admphys Problems Condition Name Condition Details Condition Category Status Onset Date Resolution Date Last Treatment Date Treating Clinician Comments Source ABD PAIN ABD PAIN Active 12/10/2019 [facility] Diagnosis Active 2019-12-10 00:00:00 2020-03-17 11:15:00 [facility] COUGH COUG H Active 07/30/2019 [facility] Diagnosis Active 2019-07-30 00:00:00 2019-08-09 08:24:00 [facility] BODY ACHE BODY ACHE Active 07/19/2019 [facility] Diagnosis Active 2019-07-19 00:00:00 2019-07-19 21:43:00 [facility] ANXIETY ANXI ETY Active 01/01/2019 [facility] Diagnosis Active 2019-01-01 00:00:00 2019-01-10 10:04:00 [facility] CERVICALGIA CERV ICALGIA Active 12/11/2018 [facility] Diagnosis Active 2018-12-11 12:00:00 2018-12-20 11:01:00 [facility] M54.2 M54. 2 Active 10/20/2018 [facility] Diagnosis Active 2018-10-20 08:00:00 2019-05-09 14:40:00 [facility] AMS/HYPERCAPNIC RESP FAILURE A MS/HYPERCAPNIC RESP FAILURE Active 11/20/2016 [facility] Diagnosis Active 11-20 00:00:00 2016-11-29 21:53:00 [facility] soriano RESPIRATORY DISTRESS RESP IRATORY DISTRESS Active 11/20/2016 [facility] Diagnosis Active 2016-11-20 00:00:00 2016-11-20 09:53:00 [facility] CHEST PAIN CHES T PAIN Active 05/12/2016 [facility] Diagnosis Active 2016-05-12 00:00:00 2016-05-12 13:27:00 [facility] CHEST PAIN//EMS CHES T PAIN//EMS Active 03/28/2016 [facility] Diagnosis Active 2016-03-28 08:00:00 2016-04-01 22:14:00 [facility] Migraine (disorder) Migr mat (disorder) Resolved Problem 12/19/2019 [facility] [place],[facility] Problem Resolved 2019-12-19 21:43:01 [facility] Substance abuse (disorder) Sub stance abuse (disorder) Resolved Problem 12/19/2019 Meth - last used 9 days ago [facility], [facility] [place],[facility] Problem Resolved 2019-12-19 21:43:01 [facility] Hypertensive disorder, systemic arterial (disorder) Hypertensive disorder, systemic arterial (disorder) Active Problem 12/19/2019 takes b/p meds [facility] [place],[facility] Problem Active 2019-12-19 21:43:01 [facility] Hypercholesterolemia (disorder) Hypercholesterolemia (disorder) Active Problem 12/19/2019 [facility] [place],[facility] Problem Active 2019-12-19 21:43:01 [facility] ALTERED MENTAL STATUS, UNSPECIFIED ALTERED MENTAL STATUS, UNSPECIFIED Active [facility] Diagnosis Active 2016-11-29 21:53:00 [facility] RESPIRATORY FAILURE, UNSPECIFIED WITH HY RESPIRATORY FAILURE, UNSPECIFIED WITH HY Active [facility] Diagnosis Active 2016-11-29 21:53:00 [facility] Pelvic and perineal pain Pelv ic and perineal pain 12/10/2019 12/12/2019 [facility] Problem 2019-12-10 17:00:00 2019 22:00:59 2019-12-12 22:00:59 [facility] Acute vaginitis Acut e vaginitis 12/09/2019 12/11/2019 [facility] Problem 2019-12-09 17:00:00 2019-12-11 21:02:13 2019-11 21:02:13 [facility] Calculus of kidney Calc ulus of kidney 12/08/2019 12/11/2019 [facility] Problem 2019-12-08 17:00:00 2019-12-11 21:02:13 2019-12-11 21:02:13 [facility] Unspecified abdominal pain Uns pecified abdominal pain 12/08/2019 12/11/2019 [facility] Problem 2019-12-08 17:0 0:00 2019-12-11 21:02:13 2019-12-11 21:02:13 [facility] soriano Hepatomegaly with splenomegaly, not elsewhere classifi ed Hepatomegaly with splenomegaly, not elsewhere classified 12/08/2019 12/11/2019 [facility] Problem 2019-12-08 17:00:00 2019-12-11 21:02:13 2019-11 21:02:13 [facility] Cough Coug h 07/30/2019 08/01/2019 [facility] Problem 2019-07-30 18:00:00 2019-08-01 22:31:59 2019-08-01 22:31:59 [facility] Bronchitis, not specified as acute or chronic Bronchitis, not specified as acute or chronic 07/30/2019 08/01/2019 [facility] Problem 2019-07-30 18:00:00 2019-08-01 22:31:59 2019-08-01 22:31:59 [facility] Unspecified asthma, uncomplicated Unspecified asthma, uncomplicated 07/30/2019 08/01/2019 [facility] Problem 2019-07-30 18:00:00 2019-08-01 22:31:59 2019-08-01 22:31:59 [facility] Acute upper respiratory infection, unspecified Acute upper respiratory infection, unspecified 07/27/2019 07/29/2019 [facility] Problem 2019-07-27 18:00:00 2019-07-29 23:34:30 2019-07-29 23:34:30 [facility] Malaise and fatigue Eleonora ise and fatigue 07/27/2019 07/29/2019 [facility] Problem 2019-07-27 18:00:00 2019-07-29 23:34: 30 2019-07-29 23:34:30 [facility] Nausea Naus ea 07/27/2019 07/29/2019 [facility] Problem 2019-07-27 18:00:00 2019-07-29 23:34:30 2019-07-29 23:34:30 [facility] Anxiety disorder, unspecified Anxiety disorder, unspecified 01/01/2019 01/04/2019 [facility] Problem 20 07-01-13 17:00:00 2019-01-04 00:00:43 2019-01-04 00:00:43 [facility] Discharge Diagnosis: Atypical chest pain Discharge Diagnosis: Atypical chest pain 03/28/2016 03/31/2016 [facility] Problem 2016-03-28 05:00:00 2016-03-31 00:44:06 2016-03-31 00:44:06 Juana Collins Allergies, Adverse Reactions, Alerts Allergy Name Allergy Type Status Severity Reaction(s) Onset Date Inacti ve Date Treating Clinician Comments Source Trazodone Propensity to adverse reactions to drug Active 2018-01-12 00:00:00 Nii ortiz Hydroxyzine Hcl Propensity to adverse reactions to drug Active Nausea and Vomiting 2016-06-01 00:00:00 Julio tipton Vistaril Vistaril Active Memori al Dennis traZODone traZODone Active Clint rial Dennis Family History Family Member Diagnosis Comments Start Date Stop Date Source Natural father Alcohol/Drug [facility] joshua Natural mother Unknown Fam Hx [facility] Social Habit Start Date Stop Date Quantity Comments Source Sex Assigned At [facility] Alcohol intake 2016-06-01 00:00:00 2016-06-01 00:00:00 Current non-drinker of alcohol (finding) [facility] Social History 2016-03-28 19:44:47 2016-03-28 19:44:47 Juana Collins Smoking Status Start Date Stop Date Source Current every day smoker 2018-01-12 00:00:00 Todd Ho Never smoker [facility] Medications Ordered Medication Name Filled Medication Name Start Date Stop Da te Current Medication? Ordering Clinician Indication Dosage Frequency Signature (SIG) Comments Components Source clonazePAM 1 mg oral tablet 2019-12-14 22:27:00 Yes 1 tab, 2 Times Daily, 0 Refill(s) Juana Collins Doxepin Hydrochloride 50 MG Oral Capsule 2019-12-14 22:27:00 Yes 1 tab, Bedtime, 0 Refill(s) Juana Brandt nn Naproxen 500 MG Oral Tablet [Naprosyn] 2019-12-11 02:49:00 Yes 500 mg = 1 tab, PO, BID, X 7 day, # 14 tab, 0 Refill(s), Pharmacy: [facility]/pharmacy #[id number] Juana Collins Azithromycin 2019-12-09 05:39:00 No 1,000 mg, Route: PO, Drug form: TAB, ONCE, Dosing Weight 110, kg, Start date: 12/09/19 0:39:00 CDT, Stop date: 12/09/19 0:39:00 CDT, ABX Indication: Genital Tract Infection [facility] Flagyl 2019-12-09 05:39:00 No 2 gm, Route: PO, ONCE, Dosing Weight 110, kg, Start date: 12/09/19 0:39:00 CDT, Stop date: 12/09/19 0:39:00 CDT, ABX Indication: Genital Tract Infection Clint magnus Collins Rocephin 2019-12-09 05:39:00 No 250 mg, Route: IM, Drug form: PDR/INJ, ONCE, Dosing Weight 110, kg, Priority: STAT, Start date: 12/09/19 0:39:00 CDT, Stop date: 12/09/19 0:39:00 CDT, ABX Indication: Genital Tract Infection [facility] ketOROLAC 15 mg/mL injectable solution 2019-12-09 05:01:00 No 15 mg, Route: IVP, Drug form: INJ, ONCE, Dosing Weight 110, kg, Priority: STAT, Start date: 12/09/19 0:01:00 CDT, Stop date: 12/09/19 0:01:00 CDT [facility] Zofran 2019-12-09 03:09:00 No Notes: (Same as: Zofran) MEDICATION WASTE Product Size: 4 mg Product Wasted: ___ mg [facility] Fentanyl 2019-12-09 03:09:00 No Notes: (Same as: Sublimaze) Preservative free. [facility] Indocin 2019-12-09 02:57:00 Yes 50 mg, PO, D aily [facility] Doxepin Hydrochloride 50 MG Oral Capsule 2019-12-09 02:57:00 Yes 50 mg = 1 cap, PO, Bedtime [facility] aripiprazole 15 MG Oral Tablet [Abilify] 2019-12-09 02:56:00 Yes 15 mg = 1 tab, PO, Bedtime [facility] Sertraline 50 MG Oral Tablet [Zoloft] 2019-12-09 02:55:00 Y es 50 mg = 1 tab, PO, Daily [facility] clonazePAM 1 mg oral tablet 2019-12-09 02:55:00 Yes 1 mg = 1 tab, PO, BID [facility] Tylenol with Codeine 120 mg-12 mg/5 mL oral liquid 2019-07 17:24:00 Yes 15 ml, PO, Q6H, PRN Cough, X 7 day, # 120 mL, 0 Refill(s), Pharmacy: [facility]/pharmacy #[id number] [facility] predniSONE 20 mg oral tablet 2019-07-30 17:24:00 Yes 60 mg = 3 tab, PO, Daily, Take 3 tablets for 60 mg dose, X 5 day, # 15 tab, 0 Refill(s), Pharmacy: [id number] Monoh[facility] 100 MG Oral Tablet 2019-07-30 17:23:00 Yes 100 mg = 1 tab, PO, Q12H, X 10 day, # 20 tab, 0 Refill(s), Pharmacy: [facility]/pharmacy #[id number] [facility] Amoxicillin 875 MG / Clavulanate 125 MG Oral Tablet [Augment in 875-mg] 2019-07-30 17:22:00 Yes 875 mg = 1 tab, PO, BID, X 10 day, # 20 tab, 0 Refill(s), Pharmacy: [facility]/pharmacy #[id number] [facility] Promethazine 2019-07-30 16:46:00 No Notes: (Same as: Phenergan) [facility] Dennis Prednisone 2019-07-30 16:45:00 No Notes: Ta ke with food. [facility] Albuterol 0.833 MG/ML / Ipratropium Brom mehreen 0.167 MG/ML Inhalant Solution [DuoNeb] 2019-07-30 16:45:00 No Notes: (S jacob as: Duoneb) [facility] Acetaminophen 300 MG / Codeine Phosphate 30 MG Oral Tablet [Tylenol with Codeine #3] 2019-07-28 06:00:00 No 1 tab, Route: PO, Dosing Weight 108.182, kg, Q6H, Start date: 07/28/19 0:00:00 A R COLLECTIONS REP, Duration: 30 day, Stop date: 08/26/19 18:00:00 A R COLLECTIONS REP, [facility] Ondansetron 4 MG Disintegrating Tablet [Zofran] 2019-07-28 05:21 :00 Yes 4 mg = 1 tab, PO, BID, PRN N ausea and Vomiting, Dissolve tab under tongue, # 10 tab, 0 Refill(s) Juana Cumberland Acetaminophen 300 MG / Codeine Phosphate 30 MG Oral Tablet [Tylenol with Codeine #3] 2019-07-28 05:21:00 Yes 1 - 2 tab, PO, Q4H, PRN Cough, not to exceed 4000 mg acetaminophen per day Use with caution and take a stool softener while using this medication as it can cause constipation., X 2 day, # 20 tab, 0 Refill(s) Juana Collins benzonatate 100 MG Oral Capsule [Tessalon Perles] 2019-07-28 05:21:00 Yes 100 mg = 1 cap, PO, Q8H, PRN cough, do not crush or chew, X 10 day, # 30 cap, 0 Refill(s) Juana Collins ibuprofen 800 mg oral tablet 2019-07-28 05:21:00 Yes 800 mg = 1 tab, PO, Q8H, PRN Fever or Pain, Take with food For acute pain, X 10 day, # 30 tab, 0 Refill(s) Juana Collins albuterol 90 mcg/inh inhalation aerosol 2019-07-28 05:21:00 Yes 2 puff, INHALATION, QID, PRN Wheezing, # 17 gm, 0 Refill(s) Juana Cumberland acetaminophen-codeine #3 2019-07-28 04:13:00 No 1 tab, Route: PO, Drug Form: TAB, Dosing Weight 108.182, kg, ONCE, STAT, Start date: 07/27/19 22:13:00 A R COLLECTIONS REP, Stop date: 07/27/19 22:13:00 A R COLLECTIONS REP Juana Collins Albuterol 0.83 MG/ML Inhalant Solution 2019-07-28 04:03:00 No 2.49 mg, Route: NEB, Drug form: SOLN, ONCE, Dosing Weight 108.182, kg, Priority: STAT, Start date: 07/27/19 22:03:00 A R COLLECTIONS REP, Stop date: 07/27/19 22:03:00 A R COLLECTIONS REP Juana Collins Brompheniramine Maleate 0.4 MG/ML / Dext romethorphan Hydrobromide 2 MG/ML / Pseudoephedrine Hydrochloride 6 MG/ML Oral Solution [Bromfed DM] 2019-07-20 04:32:00 Yes 5 mL, PO, TID, PRN coug h, X 8 day, # 120 mL, 0 Refill(s) Juana Collins benzonatate 200 MG Oral Capsule [Tessalon] 2019-07-20 04:15:00 Yes 200 mg = 1 cap, PO, Bedtime, X 10 day, # 10 cap, 0 Refill(s) Juana Collins predniSONE 20 mg oral tablet 2019-07-20 04:13:00 Yes See Special Instructions, PO, Daily, 4 day regimen: Day 1 - 40 mg (2 tabs) Day 2 - 30 mg (1 1/2 tabs) Day 3 - 20 mg (1 tab) Day 4 - 10 mg (1/2 tab), X 4 day, # 6 tab, 0 Refill(s) [facility] Dennis Dexamethasone 2019-07-20 03:23:00 No 10 mg, Route: IM, ONCE, Dosing Weight 108.182, kg, Priority: STAT, Start date: 07/19/19 21:23:00 A R COLLECTIONS REP, Stop date: 07/19/19 21:23:00 A R COLLECTIONS REP [facility] soriano Ketorolac 2019-07-20 03:23:00 No 30 mg, Route: IM, Drug form: INJ, ONCE, Dosing Weight 108.182, kg, Priority: STAT, Start date: 07/19/19 21:23:00 A R COLLECTIONS REP, Stop date: 07/19/19 21:23:00 A R COLLECTIONS REP Ar viot Riveraann Alprazolam 0.25 MG Oral Tablet [Xanax] 2019-01-02 02:57:00 No 2 tab, Route: PO, Drug form: TAB, ONCE, Dosing Weight 109.091, kg, Priority: STAT, Start date: 01/01/19 21:57:00 CDT, Stop date: 01/01/19 21:57:00 CDT [facility] Dennis Ativan 2019-01-02 02:46:00 No 1 mg, Route: PO, Drug form: TAB, ONCE, Dosing Weight 109.091, kg, Priority: STAT, Start date: 01/01/19 21:46:00 CDT, Stop date: 01/01/19 21:46:00 CDT Guy Collins paliperidone (INVEGA) 9 MG 24 hr tablet 2018-01-12 13:25:00 Yes 9mg QD Take 9 mg by mouth every morning. Davonte Ho levothyroxine (SYNTHROID, LEVOXYL) 50 mcg tablet 2018-01-12 13:21:16 Yes 50ug QD Take 50 mcg by mouth every morning. Nii Ho cyclobenzaprine (FLEXERIL) 5 mg tablet 2018-01-12 13:19:24 Yes 5mg Q.[id number] Take 5 mg by mouth 3 (three) times a day as needed for muscle spasms. Nii Ho acetaZOLAMIDE (DIAMOX) 125 MG tablet 2018-01-12 12:36:28 Yes 150mg Q.[id number] Take 150 mg by mouth 3 (three) times a day. Nii Ho topiramate (TOPAMAX ORAL) 2018-01-12 12:36:28 Yes Take by mouth. Nii Ho Clonidine Hydrochloride 0.2 MG Oral Tablet 2016-11-24 17:57:00 Yes PO, TID, 0 Refill(s) Juana Collins topiramate 50 MG Oral Tablet [Topamax] 2016-11-24 17:48:00 Yes 50 mg = 1 tab, PO, QAM, # 30 tab, 0 Refill(s) Juana Collins topiramate 25 MG Oral Tablet [Topamax] 2016-11-24 17:48:00 Yes 75 mg = 3 tab, PO, Bedtime, # 90 tab, 0 Refill(s) Juana Collins Buprenorphine 4 MG / Naloxone 1 MG Oral Strip [Suboxone] 2016-11-24 17:48:00 Yes 1 ea, SL, BID, # 28 ea, 0 Refill (s) Juana Collins duloxetine 60 MG Enteric Coated Capsule [Cymbalta] 2016-11 17:48:00 Yes 60 mg = 1 cap, PO, QAM, # 30 cap, 0 Refi ll(s) Juana Collins duloxetine 30 MG Enteric Coated Capsule [Cymbalta] 2016-11 17:48:00 Yes 30 mg = 1 cap, PO, Bedtime, # 30 cap, 0 Refill(s) Juana Collins 168 HR Clonidine 0.0125 MG/HR Transdermal Patch 2016-11-24 17:48 :00 No 1 patch, TOP, Q7D, 0 Refill(s) Juana Collins Lidocaine 0.05 MG/MG Transdermal Patch 2016-11-24 16:30:00 No Notes: Apply only once for up to 12 hours in a 24-hour period (12 hours on and 12 hours off). (Same as: Lidoderm) "Remove old patch before application of new patch" Juana Collins remove patch 2016-11-24 04:30:00 No Notes: Remove patch 12 hours after application each day. Juana soriano Topamax 2016-11-24 02:00:00 No Notes: (Same As: Topamax) "Do Not Crush" Juana Collins Clonidine Hydrochloride 0.2 MG Oral Tablet 2016-11-23 21:00:00 No Notes: (Same As: Catapres) Juana dodge buprenorphine-naloxone 2016-11-23 18:48:00 No Notes: Same as: Suboxone Non-Formulary Juana Collins Benadryl 2016-11-23 17:25:00 No Notes: (Jamshid e as: Benadryl) Juana Collins Hydromorphone 2016-11-23 17:18:00 No Notes: Same as Dilaudid [facility] Dennis Buprenorphine 8 MG / Naloxone 2 MG Sublingual Tablet 11-23 16:50:00 No Notes: Same as: Suboxone Non-Formulary [facility] Dennis gabapentin 300 MG Oral Capsule 2016-11-23 16:47:00 No Notes: (Same as: Neurontin) [facility] Dennis Hydromorphone 2016-11-23 15:02:00 No Notes: Same as Dilaudid Juana Collins D5W 1/2NS 1,000 mL 2016-11-23 07:31:00 No 1,000 mL, Rate: 150 ml/hr, Infuse over: 6.7 hr, Route: IV, Dosing Weight 139.5 kg, Total Volume: 1,000, Start date: 11/23/16 2:31:00 CDT, Duration: 30 day, Stop date: 12/23/16 2:30:00 CDT [facility] Dennis D5W 1/2NS 1,000 mL + M.V.I.-12 10 mL Daily 2016-11-22 19:14:00 No 1,000 mL, Rate: 150 ml/hr, Infuse over: 6.7 hr, Route: IV, Dosing Weight 139.5 kg, Total Volume: 1,010, Start date: 11/22/16 14:14:00 CDT, Duration: 30 day, Stop date: 12/22/16 14:13:00 CDT Guy Collins Acetazolamide 2016-11-22 19:12:00 No Notes: (Same as: Diamox) [facility] potassium phosphate + sodium chloride 0.9% INJ 250 mL 2016-11-22 11:40:00 No Notes: (Same as : K Phosphate.) 1 mMol phoshate has 1.47 mEq potassium Infuse over 4 hours [facility] potassium chloride 2016-11-22 11:40:00 No Notes: Infuse at a rate of 10 mEq/hr. (Same as: KCL) [facility] echo sodium phosphate + sodium chloride 0.9% INJ 250 mL 3 11:40:00 No 15 mmol, 5 mL, Route : IVPB, PRN, Dosing Weight 139.5, kg, PRN Abnormal Lab Result, Start date: 11/22/16 6:40:00 CDT, Duration: 30 day, Stop date: 12/22/16 6:39:00 CDT, FOR ICU USE ONLY [facility] Magnesium Oxide 2016-11-22 11:40:00 No Notes: (Same as: Mag-Ox 400) Magnesium oxide [id number] elemental magnesium Dose=____mg magnesium oxide (___mg elemental magnesium) [facility] Magnesium Sulfate 2016-11-22 11:40:00 No Notes: WASTE: F/P - Sink; E - Municipal Tr[facility] Calcium Carbonate 500 MG Chewable Tablet 2016-11-22 11:40:00 No Notes: (Same As: Tums) Calcium Carbonate 500 mg = 200 mg elemental calcium Dose = mg calcium carbonate ( mg elemental calcium) [facility] Calcium Gluconate 2016-11-22 11:40:00 No Notes: WASTE: F/P - Sink; [facility]-sodium phosphate 250 mg-280 mg-160 mg oral powder for reconstitution 2016-11-22 11:40:00 No Notes: (Same as: Phos-NaK) Each 1.5 gm pkt has 250mg phosphorous. Mix w/2.5oz water and stir. [facility] Vancomycin 2016-11-22 02:00:00 No 2001 mg: infuse over 2.5 hours [facility] Tylenol 2016-11-22 01:04:00 No Notes: Do not exceed 4 gm/day. (Same as: Tylenol) [facility] 168 HR Clonidine 0.0125 MG/HR Transdermal Patch 2016-11-22 00:00 :00 No Notes: Patch delivers 0.3 mg /24 hours; Patch is applied weekly. [id number]. "Remove old patch before application of new patch" [facility] remove patch 2016-11-22 00:00:00 No Notes: Remove old patch before application of new patch. [facility] nn heparin 2016-11-21 21:00:00 No Notes: porci ne heparin [facility] Labetalol 2016-11-21 19:07:00 No Notes: (Same as: Normodyne, Trandate) Push over 2 minutes Give bolus over 2-3 minutes. [facility] Cymbalta 2016-11-21 14:00:00 No Notes: (Same as: Cymbalta) (Do Not Crush) [facility] remove patch 2016-11-21 14:00:00 No Notes: Remove old patch before application of new patch. [facility] 168 HR Clonidine 0.22622 MG/HR Transdermal Patch 2016-11-21 14:0 0:00 No Notes: Patch delivers 0.1 mg /24 hours; Patch is applied weekly. "Remove old patch before application of new patch" (Same As: [id number]) [facility] Topamax 2016-11-21 14:00:00 No Notes: (Same As: Topamax) "Do Not Crush" [facility] paliperidone 2016-11-21 14:00:00 No 6 mg, Route: PO, Drug form: ERTAB, QAM, Dosing Weight 139.5, kg, Start date: 11/21/16 9:00:00 CDT, Duration: 30 day, Stop date: 12/20/16 9:00:00 CDT [facility] Prilosec 2016-11-21 14:00:00 No 40 mg, Route: PO, Drug form: DRC, Daily, Dosing Weight 139.5, kg, Start date: 11/21/16 9:00:00 CDT, Duration: 30 day, Stop date: 12/20/16 9:00:00 CDT [facility] orial Dennis Protonix 2016-11-21 12:58:00 No Notes: For IV push reconstitute with 10 ml 0.9% sodium chloride and push over 2 minutes. (Same as: Protonix) [facility] Clonidine Hydrochloride 0.1 MG Oral Tablet 2016-11-21 11:58:00 No Notes: (Same As: Catapres) [facility] cefTRIAXone + sodium chloride 0.9% INJ 100 mL 2016-11-21 05:00:0 0 No Notes: (Same As: Rocephin). Use with 10 0 mL NS and infuse over 30 min MEDICATION WASTE Product Size: 2000 mg Product Wasted: ___ mg [facility] Cymbalta 2016-11-21 02:00:00 No Notes: (Same as: Cymbalta) (Do Not Crush) [facility] Topamax 2016-11-21 02:00:00 No Notes: (Same As: Topamax) "Do Not Crush" [facility] Vancomycin 2016-11-21 02:00:00 No 2,000 mg, Route: IVPB, Drug form: INJ, [id number], Dosing Weight 139.5, kg, Start date: 11/20/16 21:00:00 CDT, Duration: 30 day, Stop date: 12/20/16 9:00:00 CDT, Pediatric Dosing [facility] Vancomycin 2016-11-21 01:00:00 No 2001 mg: infuse over 2.5 hours [facility] Ceftriaxone 2016-11-21 00:00:00 No 2 gm, Route: IVPB, Drug form: PDR/INJ, [id number], Dosing Weight 139.5, kg, Start date: 11/20/16 19:00:00 CDT, Duration: 30 day, Stop date: 12/20/16 11:00:00 CDT [facility] Protonix 2016-11-20 22:38:00 No Notes: For IV push reconstitute with 10 ml 0.9% sodium chloride and push over 2 minutes. (Same as: Protonix) [facility] Labetalol 2016-11-20 22:19:00 No Notes: (Same as: Normodyne, Trandate) Push over 2 minutes Give bolus over 2-3 minutes. Juana Dennis Protonix 2016-11-20 21:30:00 No Notes: Tablet should not be chewed or crushed. (Same as: Protonix) Juana Cumberland Ceftriaxone 2016-11-20 20:00:00 No Notes: (Same As: Rocephin). Use with 100 mL NS and infuse over 30 min MEDICATION WASTE Product Size: 2000 mg Product Wasted: ___ mg Juana Collins Haldol 2016-11-20 19:45:00 No Notes: (Same as: Haldol) Juana Collins Hydralazine 2016-11-20 19:43:00 No Notes: (Same as: Apresoline) Push over 5 minutes Juana Collins Ibuprofen 400 MG Oral Tablet 2016-11-20 17:16:00 No 800 mg = 2 tab, PO, TID, PRN Pain, # 120 tab, 0 Refill(s) Juana Collins Acetaminophen 500 MG Oral Tablet [Tylenol] 2016-11-20 17:15:00 Yes 500 mg = 1 tab, PO, Q8H, PRN Pain, # 60 tab, 0 Refill(s) Juana Collins Ondansetron 4 MG Oral Tablet [Zofran] 2016-11-20 17:06:00 N o 8 mg = 2 tab, PO, TID, PRN Nausea & Vomiting, # 10 tab, 0 Refill(s) Juana Collins Promethazine Hydrochloride 25 MG Oral Tablet 2016-11-20 17:06:00 No 25 mg = 1 tab, PO, Q6H, PRN Nausea/Vomiting, # 12 tab, 0 Refill(s) Juana [facility] Buprenorphine 4 MG / Naloxone 1 MG Oral Strip [Suboxone] 2016-11-20 17:04:00 No 1 ea, SL, BID, # 30 ea, 0 Refill (s) [place] Collins paliperidone 6 mg oral tablet, extended release 2016-11-20 17:01 :00 Yes 6 mg = 1 tab, PO, QAM, # 30 tab, 0 Refill(s) [place]ana Collins paliperidone 3 mg oral tablet, extended release 2016-11-20 17:00 :00 Yes 3 mg = 1 tab, PO, QAM, 0 Refill(s) [place]ana Collins Omeprazole 20 MG Enteric Coated Capsule [Prilosec] 2016-11 17:00:00 Yes 40 mg = 2 cap, PO, Daily, # 30 cap, 1 Re fill(s) [place]ana Collins Centrum oral tablet 2016-11-20 17:00:00 Yes 1 tab, PO, Daily, # 30 tab, 0 Refill(s) [facility] duloxetine 30 MG Enteric Coated Capsule [Cymbalta] 1 17:00:00 No 30 mg = 1 cap, PO, Bedtime, # 90 cap, 0 Refill( [facility]) [facility]ul[facility] 60 MG Enteric Coated Capsule [Cymbalta] 1 16:59:00 No 60 mg = 1 cap, PO, QAM, # 30 cap, 1 Refill(s) [facility] Trazodone Hydrochloride 100 MG Oral Tablet 2016-11-20 16:59:00 No 100 mg = 1 tab, PO, Bedtime, # 30 tab, 1 Refill(s) [facility] tizanidine 4 mg oral tablet 2016-11-20 16:58:00 Yes 4 mg = 1 tab, PO, TID, PRN for muscle spasms, # 90 tab, 0 Refill(s) [facility] gabapentin 300 MG Oral Capsule 2016-11-20 16:58:00 No 300 mg = 1 cap, PO, TID, # 90 cap, 1 Refill(s) Clintadriel agudelo [place] busPIRone 15 mg oral tablet 2016-11-20 16:58:00 No 15 mg = 1 tab, PO, TID, # 90 tab, 0 Refill(s) [facility] topiramate 25 MG Oral Tablet [Topamax] 2016-11-20 16:56:00 No 75 mg = 3 tab, PO, Bedtime, 0 Refill(s) Taylor al [facility] topiramate 50 MG Oral Tablet [Topamax] 2016-11-20 16:55:00 No 50 mg = 1 tab, PO, QAM, # 60 tab, 0 Refill(s) [facility] Ceftriaxone 2016-11-20 16:48:00 No Notes: (Same As: Rocephin). Use with 100 mL NS and infuse over 30 min MEDICATION WASTE Product Size: 2000 mg Product Wasted: ___ mg [facility] Vancomycin 2016-11-20 16:48:00 No 2001 mg: infuse over 2.5 hours [facility] Sodium Chloride 0.154 MEQ/ML Injectable Solution 2016-11-20 14:5 9:00 No 1,000 mL, 1000 ml/hr, Infuse Over: 1 hr, Route: IV, 1,000, Drug form: INJ, ONCE, Priority: STAT, Dosing Weight 139.5 kg, Start date: 11/20/16 9:59:00 CDT, Duration: 1 doses or times, Stop date: 11/20/16 9:59:00 CDT [facility] Sodium Chloride 0.154 MEQ/ML Injectable Solution 2016-11-20 13:5 1:00 No 1,000 mL, 1000 ml/hr, Infuse Over: 1 hr, Route: IV, 1,000, Drug form: INJ, ONCE, Priority: STAT, Dosing Weight 139.5 kg, Start date: 11/20/16 8:51:00 CDT, Duration: 1 doses or times, Stop date: 11/20/16 8:51:00 CDT [facility] DULoxetine (CYMBALTA) 30 mg delayed release capsule 2015-0811 10:51:57 Yes 30mg QD Take 30 mg by mouth daily. [facility] paliperidone (INVEGA) 9 mg extended release tablet 2016-05 10:51:57 Yes 9mg Take 9 mg by mouth every morning. [facility] busPIRone (BUSPAR) 5 mg tablet 2016-06-01 10:51:57 Yes 5mg Take 5 mg by mouth 3 times daily. [facility] gabapentin 600 mg Tb24 2016-06-01 10:51:57 Yes Take by mouth. [facility] clonazePAM (KLONOPIN) 1 mg tablet 2016-06-01 10:51:57 Yes 1mg Take 1 mg by mouth 2 times daily as needed for Anxiety. [facility] PROPRANOLOL HCL ([id number] PROPRANOLOL) 20 mg Tab 2016-06-01 10:51:57 Yes 20mg Q.5D Take 20 mg by mouth 2 times daily. [facility] ketOROLAC 30 mg/mL injectable solution 2016-05-12 19:00:00 No 4 days MEDICATION WASTE Product Size: 30 mg Product Wasted: _0__ mg [facility] Nitroglycerin 2016-05-12 18:28:00 No 0.4 mg, Route: SL, ONCE, Dosing Weight 109.091, kg, Priority: STAT, Start date: 05/12/16 13:28:00 CDT, Stop date: 05/12/16 13:28:00 CDT Juana soriano Sodium Chloride 0.9% IV 2016-05-12 18:00:00 No 25 mL, Route: IV, Start date: 05/12/16 13:00:00 CDT, Duration: 30 day, Stop date: 06/11/16 12:59:00 CDT, PRN Line Flush [facility] Simeon perrin Tylenol 2016-05-12 17:45:00 No Notes: (Same as: Tylenol) [facility] Sodium Chloride 0.154 MEQ/ML Injectable Solution 2016-05-12 17:4 5:00 No 1,000 mL, 1000 ml/hr, Infuse Over: 1 hr, Route: IV, 1,000, Drug form: INJ, ONCE, Priority: STAT, Dosing Weight 109.091 kg, Start date: 05/12/16 12:45:00 CDT, Duration: 1 doses or times, Stop date: 05/12/16 12:45:00 CDT [facility] Saline Flush 0.9% 2016-05-12 17:45:00 No Notes: (Same as: BD Posiflush) [facility] Zofran 2016-03-28 20:14:00 No 4 mg, Route: IVP, Drug form: INJ, ONCE, Dosing Weight 109.091, kg, Priority: STAT, Start date: 03/28/16 15:14:00 CDT, Stop date: 03/28/16 15:14:00 [facility] 2016-03-28 19:38:00 No Notes: Do not exceed 4 gm/day. (Same as: Tylenol) [facility] Saline Flush 0.9% 2016-03-28 19:38:00 No Notes: (Same as: BD Posiflush) [facility] Vital Signs Vital Name Observation Time Observation Value Comments Source Systolic (mm Hg) 2019-12-11 03:06:00 Clint riajagruti [facility] Diastolic (mm Hg) 2019-12-11 03:06:00 [facility] [place] Heart Rate 2019-12-11 03:06:00 [facility] [place] Respitory Rate 2019-12-11 03:06:00 [facility] [place] Temperature Oral (F) 2019-12-11 03:06:00 98.0 F [facility] Systolic (mm Hg) 2019-12-11 02:10:00 Clint rial [place] Diastolic (mm Hg) 2019-12-11 02:10:00 [facility] Heart Rate 2019-12-11 02:10:00 [facility] Respitory Rate 2019-12-11 02:10:00 [facility] [place] Heart Rate 2019-12-11 01:33:00 [facility] Systolic (mm Hg) 2019-12-11 01:33:00 Clint rial [place] Diastolic (mm Hg) 2019-12-11 01:33:00 [facility] [place] Height 2019-12-11 01:15:00 162.56 cm [facility] BMI Calculated 2019-12-11 01:15:00 [facility] [place] Weight 2019-12-11 01:15:00 [facility] Respitory Rate 2019-12-11 01:15:00 [facility] [place] Temperature Oral (F) 2019-12-11 01:15:00 97.8 F [facility] [place] Systolic (mm Hg) 2019-12-09 06:27:00 Clint rial [place] Diastolic (mm Hg) 2019-12-09 06:27:00 [facility] Heart Rate 2019-12-09 06:27:00 [facility] Respitory Rate 2019-12-09 06:27:00 [facility] [place] Temperature Oral (F) 2019-12-09 06:27:00 98.3 F [facility] [place] Systolic (mm Hg) 2019-12-09 04:30:00 Clint [facility] [place] Diastolic (mm Hg) 2019-12-09 04:30:00 [facility] [place] Heart Rate 2019-12-09 04:30:00 [facility] [place] Respitory Rate 2019-12-09 04:30:00 [facility] [place] Height 2019-12-09 02:40:00 162.56 cm [facility] BMI Calculated 2019-12-09 02:40:00 [facility] [place] Weight 2019-12-09 02:40:00 [facility] [place] Systolic (mm Hg) 2019-12-09 02:40:00 Clint rial [place] Diastolic (mm Hg) 2019-12-09 02:40:00 [facility] [place] Heart Rate 2019-12-09 02:40:00 [facility] [place] Respitory Rate 2019-12-09 02:40:00 [facility] [place] Temperature Oral (F) 2019-12-09 02:40:00 98.5 F [facility] [place] Systolic (mm Hg) 2019-07-30 17:33:00 Clint rial [place] Diastolic (mm Hg) 2019-07-30 17:33:00 [facility] Heart Rate 2019-07-30 17:33:00 [facility] Respitory Rate 2019-07-30 17:33:00 [facility] [place] Temperature Oral (F) 2019-07-30 17:33:00 98.2 F [facility] Systolic (mm Hg) 2019-07-30 16:27:00 Clint rial [place] Diastolic (mm Hg) 2019-07-30 16:27:00 [facility] Heart Rate 2019-07-30 16:27:00 [facility] [place] Respitory Rate 2019-07-30 16:27:00 [facility] [place] Temperature Oral (F) 2019-07-30 16:27:00 98 F [facility] [place] Height 2019-07-30 16:27:00 162.56 cm [facility] BMI Calculated 2019-07-30 16:27:00 [facility] [place] Weight 2019-07-30 16:27:00 [facility] [place] Systolic (mm Hg) 2019-07-28 05:27:00 Clint rial [facility] Diastolic (mm Hg) 2019-07-28 05:27:00 [facility] Respitory Rate 2019-07-28 05:27:00 [facility] [place] Heart Rate 2019-07-28 05:27:00 [facility] [place] Temperature Oral (F) 2019-07-28 05:27:00 98.3 F [facility] Systolic (mm Hg) 2019-07-28 03:51:00 Clint rial [place] Diastolic (mm Hg) 2019-07-28 03:51:00 [facility] [place] Heart Rate 2019-07-28 03:51:00 [facility] [place] Respitory Rate 2019-07-28 03:51:00 [facility] [place] Temperature Oral (F) 2019-07-28 03:51:00 98.2 F [facility] Height 2019-07-28 03:51:00 165.1 cm [facility] BMI Calculated 2019-07-28 03:51:00 [facility] [place] Weight 2019-07-28 03:51:00 [facility] [place] Systolic (mm Hg) 2019-07-20 04:06:00 [facility] [place] Diastolic (mm Hg) 2019-07-20 04:06:00 [facility] Heart Rate 2019-07-20 04:06:00 [facility] [place] Respitory Rate 2019-07-20 04:06:00 [facility] [place] Temperature Oral (F) 2019-07-20 04:06:00 99.2 F [facility] Systolic (mm Hg) 2019-07-20 03:02:00 Clint rial [facility] Diastolic (mm Hg) 2019-07-20 03:02:00 [facility] Heart Rate 2019-07-20 03:02:00 [facility] Respitory Rate 2019-07-20 03:02:00 [facility] Temperature Oral (F) 2019-07-20 03:02:00 99.2 F [facility] Height 2019-07-20 03:02:00 162.56 cm [facility] BMI Calculated 2019-07-20 03:02:00 [facility] [place] Weight 2019-07-20 03:02:00 [facility] Temperature Oral (F) 2019-01-02 03:14:00 98.6 F [facility] Systolic (mm Hg) 2019-01-02 03:14:00 Clint rial [place] Diastolic (mm Hg) 2019-01-02 03:14:00 [facility] [place] Respitory Rate 2019-01-02 03:14:00 [facility] [place] Heart Rate 2019-01-02 03:14:00 [facility] [place] Temperature Oral (F) 2019-01-02 02:06:00 98.6 F [facility] Weight 2019-01-02 02:06:00 [facility] BMI Calculated 2019-01-02 02:06:00 [facility] [place] Height 2019-01-02 02:06:00 162.56 cm [facility] Heart Rate 2019-01-02 02:06:00 [facility] Systolic (mm Hg) 2019-01-02 02:06:00 [facility] [place] Diastolic (mm Hg) 2019-01-02 02:06:00 [facility] Respitory Rate 2019-01-02 02:06:00 [facility] [place] Respitory Rate 2016-11-24 23:26:00 [facility] [place] Heart Rate 2016-11-24 23:26:00 [facility] [place] Systolic (mm Hg) 2016-11-24 23:26:00 Clint rial [facility] Diastolic (mm Hg) 2016-11-24 23:26:00 [facility] [place] Systolic (mm Hg) 2016-11-24 21:00:00 Clint rial [facility] Diastolic (mm Hg) 2016-11-24 21:00:00 [facility] Respitory Rate 2016-11-24 21:00:00 [facility] [place] Heart Rate 2016-11-24 21:00:00 [facility] Temperature Oral (F) 2016-11-24 21:00:00 98.4 F [facility] Heart Rate 2016-11-24 17:00:00 [facility] Temperature Oral (F) 2016-11-24 17:00:00 98.1 F [facility] Systolic (mm Hg) 2016-11-24 17:00:00 Clint rial [facility] Diastolic (mm Hg) 2016-11-24 17:00:00 [facility] Respitory Rate 2016-11-24 17:00:00 [facility] [place] Temperature Oral (F) 2016-11-24 13:00:00 98.7 F [facility] Weight 2016-11-23 09:21:00 [facility] [place] Weight 2016-11-20 19:00:00 [facility] BMI Calculated 2016-11-20 13:46:00 [facility] [place] Weight 2016-11-20 13:46:00 [facility] Height 2016-11-20 13:46:00 165.1 cm [facility] Heart Rate 2016-05-12 17:15:00 [facility] Respitory Rate 2016-05-12 17:15:00 [facility] [place] Systolic (mm Hg) 2016-05-12 17:15:00 Clint rial [facility] Diastolic (mm Hg) 2016-05-12 17:15:00 [facility] Height 2016-05-12 17:15:00 162.56 cm [facility] Temperature Oral (F) 2016-05-12 17:15:00 98.8 F [facility] BMI Calculated 2016-05-12 17:15:00 [facility] [place] Weight 2016-05-12 17:15:00 [facility] Systolic (mm Hg) 2016-03-28 23:10:00 [facility] [place] Diastolic (mm Hg) 2016-03-28 23:10:00 [facility] Respitory Rate 2016-03-28 23:10:00 [facility] Heart Rate 2016-03-28 23:10:00 [facility] Systolic (mm Hg) 2016-03-28 20:42:00 Clint rial [facility] Diastolic (mm Hg) 2016-03-28 20:42:00 [facility] Respitory Rate 2016-03-28 20:42:00 [facility] Heart Rate 2016-03-28 20:42:00 [facility] Systolic (mm Hg) 2016-03-28 19:49:00 [place] Diastolic (mm Hg) 2016-03-28 19:49:00 [facility] Respitory Rate 2016-03-28 19:49:00 [facility] Heart Rate 2016-03-28 19:49:00 [facility] Weight 2016-03-28 19:17:00 [facility] BMI Calculated 2016-03-28 19:17:00 [facility] Height 2016-03-28 19:17:00 162.56 cm [facility] Temperature Oral (F) 2016-03-28 19:17:00 98.0 F [facility] Procedures Procedure Date / Time Performed Performing Clinician [facility] e section Juana mtz Plan of Care Planned Activity Planned Date Details Comments Source Future Scheduled Test 2020-05-22 00:00:00 IMM Influenza Seas onal May to October (>/= 19 yrs) [code = IMM Influenza Seasonal May to October (>/= 19 yrs)] [facility] Future Scheduled Test 2020-03-22 00:00:00 INFLUENZA VACCINE [code = INFLUENZA VACCINE] Nii Ho Future Scheduled Test 2010 00:00:00 Screening for artie gnant neoplasm of cervix (procedure) [code = 597474636] Nii Montes Future Scheduled Test 2010 00:00:00 Screening for artie gnant neoplasm of cervix (procedure) [code = 860429475] [facility] Encounters Start Date/Time End Date/Time Encounter Type Admission Type [facility] Care Department Encounter ID Source 2019-12-17 19:03:01 2019-12-18 17:10:00 Emergency B ceciliaaBrby pollard Noemi AdrielgabejameelCristine baez [facility] [id number] 2019-12-17 15:15:00 2019-12-17 15:15:00 Outpatient Timo Walters [facility] [id number] 2019-12-10 20:13:15 2019-12-10 22:08:00 Outpatient Luis Hampton [facility] [id number] 2019-12-10 20:13:00 2019-12-10 20:13:00 Emergency E [facility] MED [id number] 2019-12-08 21:30:08 2019-12-09 01:49:00 Outpatient Darline Santanao timmy MHSE MHSE [id number] 2019-12-08 21:30:00 2019-12-08 21:30:00 Emergency E [facility]SE [id number] 2019-07-30 10:23:41 2019-07-30 11:36:00 Outpatient Venkat Suarez MH[facility]SE [id number] 2019-07-30 10:23:00 2019-07-30 10:23:00 Emergency E [facility]SE [facility]SE [id number] 2019-07-27 21:43:04 2019-07-27 23:28:00 Outpatient Elisha Dietz MH[facility]SE [id number] 2019-07-27 21:43:00 2019-07-27 21:43:00 Emergency E [facility]SE [facility]SE [id number] [facility] 2019-07-19 21:00:08 2019-07-19 22:30:00 Outpatient Leandra Leonard MHSE [facility]SE [id number] 2019-07-19 21:00:00 2019-07-19 21:00:00 Emergency E MHSE [facility]SE [id number] [facility] 2018-12-20 10:50:00 2019-01-18 23:59:00 Outpatient Avtar Grace I [id number] 2019-01-01 21:02:13 2019-01-01 22:16:00 Outpatient Memo Hernandez U [facility]SE SE [id number] 2019-01-01 21:02:00 2019-01-01 21:02:00 Emergency E [facility]SE [facility]SE [id number] 2016-11-20 08:42:00 2016-11-24 20:00:00 Outpatient Se rivka Waterman [facility] [id number] 2016-09-20 15:28:00 2016-09-20 23:59:00 Outpatient Freddy Charles [id number] 2016-05-12 12:04:00 2016-05-12 14:40:00 Outpatient Kandy Bishop [id number] 2016-03-28 14:15:00 2016-03-28 18:20:00 Outpatient Adriel Sheth [id number] Results Test Description Test Time Test Comments Results Result Comments Source URINE AND STOOL 2019-12-11 01:34:00 Yellow *NA*(12/10/19 8: 34 PM) [facility] URINE AND STOOL 2019-12-11 01:34:00 Clear (12/10/19 8:34 PM ) [facility] URINE AND STOOL 2019-12-11 01:34:00 Test Item UA Spec Grav (test code = UA Spec Grav) 1.010 1 [facility] [id number] 01:34:00* Test Item Value Reference Range Interpretation Comments UA pH (test code = UA pH) 7.5 1 5.0-8.0 [facility] [id number] 01:34:00Negative *NA*(12/10/19 8:34 PM) [facility] [id number] 01:34:00Negative (12/10/19 8:34 PM) [facility] [id number] 01:34:000.2[facility] [id number] 01:34:00Negative (12/10/19 8:34 PM)[facility] [id number] 01:34:00Negative (12/10/19 8:34 PM)[facility] [id number] 01:34:00None Seen (12/10/19 8:34 PM)[facility] CHEM 2019-12-11 01:34:00Negative (12/10/19 8:34 PM)[facility]ann[facility]LECULAR FNXFOHISME6250-53-48 04:58:00Vaginal *NA*(12/08/19 11:58 PM)[facility] MOLECULAR MYWJMKMMWP1340-00-70 04:58:00Negative *NA*(12/08/19 11:58 PM)[facility]ann[facility] TCKLZWKODT4860-54-80 04:58:00Negative *NA*(12/08/19 11:58 PM) [facility]ann[facility] PDQGX8172-47-67 03:23:71511Hrkqjkns HermannCHEM PANEL 2019-12-09 03:23:000.74[facility]annCHEM EBIVM8203-34-74 03:23:10667Wqeyknno HermannCHEM ZNTXK3631-38-15 03:23:004.7[facility] HermannCHEM ZWAIG8338-32-27 03:23:42456Bdhcnekn HermannCHEM DUBBL2281-26-44 03:23:0023[facility] HermannCHEM HHDXP5922-14-71 03:23:008.7[facility]annCHEM NVNAK0848-62-14 03:23:007.4 [facility]annCHE[facility] TRSPD6126-49-75 03:23:003.7[facility] HermannCHEM PANEL 2019-12-09 03:23:0025[facility] HermannCHEM WKZSR8772-27-47 03:23:0014[facility] HermannCHEM NGIOA2275-57-82 03:23:0076[facility]annCHEM QXCTV9292-71-55 03:23:000.2[facility]annCHEM OPDHX1838-42-16 03:23:0015.7[facility]annCHEM IMMRY9160-55-89 03:23:003.7[facility]annCHEM BMYXY5094-66-87 03:23:00* Test Item Value Reference Range Interpretation Comments A/G Ratio (test code = A/G Ratio) 1.0 1 0.7-1.6 [facility]annCHE[facility] [id number] 03:23:61817Adisxqlu HermannCHEM PANEL 2019-12-09 03:23:0021[facility] HermannCHEM QTISZ5633-77-22 03:23:00* Test Item Value Reference Range Interpretation Comments B/C Ratio (test code = B/C Ratio) 28 1 6-25 [facility]annCHE[facility] PVOPN0270-68-87 03:23:33080Ieqjgqvw HermannCHEM PANEL 2019-12-09 03:23:001.1[facility] LeminkjEQNHSWCHHR5974-34-36 03:23:0012.3[facility] PyndluqTWQRKSHVAL6856-29-87 03:23:005.03[facility] NmcmlteMLRYKRXRQH7421-85-26 03:23:0014.7[facility] GswxgrcENAUNRIBOR9420-73-70 03:23:0044.6[facility] VBMZHIHFAM9736-65-39 03:23:0088.6[facility] BebztemQMGAEXJSGE5431-60-33 03:23:00* Test Item Value Reference Range Interpretation Comments MCH (test code = MCH) 29.3 pg 27.0-31.0 [facility] KzlmnzoSLCDUZRECE8051-22-04 03:23:0033.1[facility] HermannHEMATOLOGY 2019-12-09 03:23:0014.2[facility] PnajsviOFVOVEDOME9514-78-62 03:23:00724Nrepukpb PpcycfyTJSUDICXRL7830-02-59 03:23:008.6[facility] MzmrpbrUCRFNPQFLH7989-90-22 03:23:0086.6[facility] XarewmrVCHGAFTISV8893-24-39 03:23:009.8[facility] OXSHIPJMJG6184-58-27 03:23:002.6[facility] AjowmdtGTNOZVHMIS7497-15-13 03:23:000.7 [facility] PepbjuuDVSPYZWJJA1640-84-35 03:23:000.4[facility] HermannHEMATOLOGY 2019-12-09 03:23:0010.6[facility] EilgdphPXXNUPVUQK4527-54-22 03:23:001.2[facility] GksiaieGNHFJQKRSD0268-52-44 03:23:000.3[facility] BptecqyZKYILMQNNF6849-54-44 03:23:000.1[facility] AND CHXOH5953-72-75 02:49:00Light Yellow (12/08/19 9:49 PM)[facility] IQHJB2607-27-24 02:49:00* Test Item Value Reference Range Interpretation Comments UA Spec Grav (test code = UA Spec Grav) 1.015 1 [facility] [id number] 02:49:00* Test Item Value Reference Range Interpretation Comments UA pH (test code = UA pH) 7.5 1 5.0-8.0 [facility] [id number] 02:49:00Negative (12/08/19 9:49 PM) [facility] VPRVT0764-73-91 02:49:00Negative (12/08/19 9:49 PM) [facility] NOYCM9851-15-21 02:49:00Negative (12/08/19 9:49 PM) [facility] XCLMI6610-32-62 02:49:00Negative (12/08/19 9:49 PM) [facility] ZOENI8772-09-29 02:49:00Negative (12/08/19 9:49 PM) [facility] EJLRG1012-00-96 02:49:000.2[facility] XVTWT5632-87-55 02:49:00Negative (12/08/19 9:49 PM)[facility] HEDLH9289-49-53 02:49:00Negative (12/08/19 9:49 PM)[facility] XTFXM4978-23-79 02:49:00None Seen (12/08/19 9:49 PM)[facility] CHEM 2019-12-09 02:49:00Negative (12/08/19 9:49 PM)[facility]annCHEM PANEL 2016-11-24 08:10:0024[facility] HermannCHEM XPJCQ6659-44-61 08:10:0010.8[facility] HermannCHEM JKSTW9147-91-23 08:10:51191Kqwnhuzt HermannCHEM FPMHG2586-02-00 08:10:003.8[facility] HermannCHEM RRELM5151-38-26 08:10:83591Ccnawnvn HermannCHEM BNDMF7318-44-22 08:10:008.3[facility] HermannCHEM HTGOT0010-26-58 08:10:001.1 [facility]annCHEM DUOPI1346-34-09 08:10:000.9[facility] HermannCHEM PANEL 2016-11-24 08:10:0050[facility] HermannCHEM VGANU2386-15-25 08:10:005.8[facility] HermannCHEM GPBHO3620-20-39 08:10:003.0[facility] HermannCHEM BMFGA4163-54-06 08:10:34754Kbxnsqgn HermannCHEM XJKCY3656-53-34 08:10:000.49[facility] HermannCHEM UEDAZ1354-19-59 08:10:0012[facility] HermannCHEM OFHGS6534-37-71 08:10:0090 [facility]annCHEM NBFYU8490-57-13 08:10:0035[facility] HermannCHEM PANEL 2016-11-24 08:10:0026[facility] HermannCHEM LPWMX5879-45-26 08:10:0051[facility] HermannCHEM UZHMB0974-04-51 08:10:002.8[facility] GbmelzzLGXMYTKAFA4082-74-07 08:10:007.8[facility] XvjvbimANSUIUXSYK7088-80-24 08:10:0033.0[facility] OQXIBZNDBP8531-42-31 08:10:0014.8[facility] HshqrkdVJLEYJMSWV2785-73-86 08:10:00 215[facility] BozpeqtNTHQWOIYLR5690-86-40 08:10:0080.3[facility] HermannHEMATOLOGY 2016-11-24 08:10:00* Test Item Value Reference Range Interpretation Comments MCH (test code = MCH) 26.5 pg 27.0-31.0 [facility] SoetodaUQLHEFYJGF6390-22-09 08:10:004.21[facility] HermannHEMATOLOGY 2016-11-24 08:10:0011.2[facility] HcmxkdsJWFDXQYCSM0139-49-53 08:10:0033.8[facility] QjhseybDRPNKTDKGJ3224-94-01 08:10:007.2[facility] BjwaropRAJLUIMZKC5385-25-60 08:10:000.2[facility] CwjofrgEYYNPAALXW9601-76-61 08:10:000.1[facility] NQPHWSEOFV1391-93-66 08:10:002.4[facility] ShtausqQJCLHJGKQN9021-05-42 08:10:001.1 [facility] CxpxtobBEXJGTDESE7950-08-83 08:10:004.1[facility] HermannHEMATOLOGY 2016-11-24 08:10:002.2[facility] TupioftVXBCQRPHAA8032-41-09 08:10:000.7[facility] NlaefabMKHFHQNYZC3846-82-57 08:10:0056.1[facility] RpijwnwUSLCSELIIW0908-95-79 08:10:0030.2[facility] XcphwooFTCNFZYRQI1972-04-03 08:10:0010.2[facility] CHEM ULSYQ5868-30-80 20:51:002.2[facility] YrzktlgUWAFBYCMXFLA8272-12-18 20:51:00 3.4[facility]annBODY DEDGTB3273-67-46 14:46:00Clear (11/23/16 9:46 AM)[facility] YQTWUY2143-74-00 14:46:00Colorless (11/23/16 9:46 AM)[facility] BODY IGCSBK4317-72-72 14:46:00* Test Item Value Reference Range Interpretation Comments Tube Num CSF (test code = Tube Num CSF) 1 1 [facility] TTDHRS8701-19-10 14:46:67666Cjuacrsc HermannBODY FLUIDS 2016-11-23 14:46:00Colorless (11/23/16 9:46 AM)[facility]ann[facility] FLUIDS 2016-11-23 14:46:002[facility]annBACTERIAL - EYKSBJGJ4993-81-99 14:00:00 Negative (11/23/16 9:00 AM)[facility]ann[facility] EFWNID3055-58-36 14:00:001.4 [facility]annB[facility] MNCVWP6449-74-62 14:00:0058[facility] FLUIDS 2016-11-23 14:00:001[facility]ann[facility] PLZQQP0371-93-00 14:00:00* Test Item Value Reference Range Interpretation Comments Tube Num CSF (test code = Tube Num CSF) 4 1 [facility] [id number] 14:00:00Clear (11/23/16 9:00 AM)[facility]ann[facility] QCFGNV9613-07-62 14:00:00Colorless (11/23/16 9:00 AM)[facility] BODY MZVEXO5635-82-42 14:00:00Colorless (11/23/16 9:00 AM)[facility]ann[facility] QRIGLI0331-56-00 14:00:0063[facility]annB[facility] RRYQJO0381-29-37 14:00:0033 [facility]annFUNGAL - [id number] 14:00:00Negative (11/23/16 9:00 AM) [facility] JmzuncnIAPFLRFKQA0611-16-51 14:00:00Non Reactive (11/23/16 9:00 AM) [facility]annMOLECULAR PRKMZZOLEB8481-85-04 14:00:00Negative (11/23/16 9:00 AM) [facility]annMOLECULAR WQZYQXIXVZ5670-55-84 14:00:00Not Performed 2(11/23/16 9:00 AM)[facility]annMOLECULAR VKVDMSKZGC0798-55-26 14:00:00Not Performed 1(11/23/16 9:00 AM)[facility]annVIRAL - [id number] 14:00:00Negative (11/23/16 9:00 AM)[facility]annCHEM RJIRM4055-13-46 08:09:000.7[facility] CHEM XQHDK8499-68-42 08:09:002.1[facility]annPARATHYROID HIRVZEE1373-75-56 08:09:001.08[facility]annPARATHYROID GZGQLBB9753-21-18 08:09:001.08[facility]annCHEM ODCYS4148-16-82 07:41:0020[facility]annCHEM GCDQL1925-03-53 07:41:0011.4[facility]annCHEM HOAFA8952-52-18 07:41:000.9[facility]annCHEM PPHZQ0906-49-58 07:41:003.0[facility]annCHEM LGUYZ0463-09-76 07:41:64245 [facility]annCHEM RNJTV9604-80-85 07:41:002.7[facility]annCHEM PANEL 2016-11-23 07:41:0013[facility] HermannCHEM MMYXV9320-74-14 07:41:0027[facility]annCHEM RCQFA7251-11-34 07:41:0096[facility]annCHEM NXWVB5762-04-33 07:41:0027[facility]annCHEM ULAWQ8361-87-19 07:41:000.45[facility]annCHEM DTSZO2212-63-64 07:41:17218Gbyautjg HermannCHEM DINKP7537-80-94 07:41:003.4 [facility]annCHEM ZMSGE3586-87-93 07:41:007.9[facility]annCHEM PANEL 2016-11-23 07:41:53702Xzoqlxmk HermannCHEM ZKKFH2937-55-83 07:41:009[facility]annCHEM TMIUZ6227-30-01 07:41:0046[facility]annCHEM CJFNU5892-66-20 07:41:000.7[facility]annCHEM EYASB0656-57-09 07:41:005.7[facility] ZNEJOITXOH5023-53-89 07:41:0035.4[facility] EbicjkgVEJKXJSDKT8804-75-16 07:41:00 11.3[facility] YnumkrtJPIYBTUDXR6857-66-37 07:41:004.24[facility] HermannHEMATOLOGY 2016-11-23 07:41:0083.5[facility] IkgbwlkSISQWDVTQJ4759-58-35 07:41:00* Test Item Value Reference Range Interpretation Comments MCH (test code = MCH) 26.7 pg 27.0-31.0 [facility] ThdurdwTCDNXLLZUX1760-33-65 07:41:008.2[facility] HermannHEMATOLOGY 2016-11-23 07:41:008.4[facility] MphwmwvZURIHRXGDW2116-94-39 07:41:58982Uuhmitqw EflzbfjFCYXZCSOPQ9649-34-10 07:41:0014.6[facility] OkfgtfgELCBQPRREE4133-96-42 07:41:0032.0[facility] TfnhabyDDGZORPAWT0038-57-76 07:41:000.1[facility] GMOMUTBPUA8980-47-62 07:41:000.9[facility] SglalnyJOFAYYZRXV3648-49-97 07:41:000.1 [facility] VdejmdqSKCEHOFPEQ6566-35-86 07:41:002.3[facility] HermannHEMATOLOGY 2016-11-23 07:41:0028.6[facility] AhovznkFIEKNJKNKI5580-23-44 07:41:0058.1[facility] ZowifwrEECVSFFTFW7490-66-44 07:41:00Normal (11/23/16 2:41 AM)[facility] LRVMODWFTZ3724-14-08 07:41:00Normal (11/23/16 2:41 AM)[facility]annHEMATOLOGY 2016-11-23 07:41:004.8[facility] KeybvloGEQSGXRFKW4304-80-34 07:41:000.8[facility] YbckanpHTXTKWPMPO3788-41-75 07:41:001.7[facility] PyevluwEKNMZOLOLL3868-79-53 07:41:0010.8[facility] IcedculZMNLHFBONCLVA1285-05-91 21:28:004.7[facility] ATBGQKXKQZJWV8015-54-71 21:28:0054.6[facility] LxvurtsVQJXNVQQAS4754-32-22 21:28:00* Test Item Value Reference Range Interpretation Comments PTT (test code = PTT) 28.7 s 22.9-35.8 [facility] FppftvbDDKIGAZYPS1388-55-59 21:28:00* Test Item Value Reference Range Interpretation Comments PT (test code = PT) 14.1 s 12.0-14.7 [facility] DlurwilSARHNLUAFT1701-19-07 21:28:001.07[facility] HermannTOXICOLOGY 2016-11-22 21:28:007.7[facility] LgwonndAADZTJISDPNW1637-73-04 08:09:0011.4 [facility] LtdjjuvRIPPTWXWTVDG8974-56-78 08:09:0011[facility] HermannELECTROLYTES 2016-11-22 08:09:21472Defpbfgm WzvmcepVQRBNQDWJAGP4588-20-83 08:09:0032[facility] VcxlkqlLMOYCSWVRWLV6117-78-08 08:09:19295Gciskizl QhvvbyoUTJJOWSLDLSZ0645-94-36 08:09:007.9[facility] LjokizbOOSPDEPOHCOV2036-56-70 08:09:57333Zgxczckf [place] OYNELUDBZGBO0563-97-34 08:09:59474Ynynafpj NioyfeeIEGYXPVZFMOX3707-81-46 08:09:000.48[facility] JgpjtoiWOWIJXNCPR0673-69-55 08:09:22519Zponpdun [place] NDAHLGSATR3405-15-35 08:09:008.6[facility] PqqmjdkOOLEBVBPKA3179-47-90 08:09:00 12.0[facility] HzgpfcnYLRALEBZPW3917-21-24 08:09:00* Test Item Value Reference Range Interpretation Comments MCH (test code = MCH) 26.3 pg 27.0-31.0 [facility] FxqeezyKGEHJOSQFM0040-72-53 08:09:004.55[facility] HermannHEMATOLOGY 2016-11-22 08:09:0011.8[facility] AgqrorxEHMZZBUXOK8319-29-30 08:09:0032.0[facility] ErfzmuhTFBQMXWMXW7623-44-02 08:09:0037.4[facility] GtvnaczLKYFUTLPTG0318-07-97 08:09:0014.4[facility] LcdaxboBSIUBRNPIM9319-33-90 08:09:0082.2[facility] VTAWBGKIMO1497-03-49 08:09:000.1[facility] AzmgigwSRUEIYXNQY8664-55-14 08:09:001.0 [facility] LrqugkbJXZYJBXEQH8513-78-27 08:09:000.1[facility] HermannHEMATOLOGY 2016-11-22 08:09:002.0[facility] KvrgqcwBSQVQSRGQU0658-24-09 08:09:000.6[facility] VqvboydAGJFLBKRYA1942-50-63 08:09:000.7[facility] EbxwfuqWHISYFUBJK5220-37-39 08:09:008.6[facility] OptpxmbSBFKVJSVED8455-17-20 08:09:008.6[facility] UKCESPIJNG2900-50-62 08:09:00Normal (11/22/16 3:09 AM)[facility]annHEMATOLOGY 2016-11-22 08:09:0073.1[facility] OrcjjdcVTMHHCFCPI4408-93-12 08:09:0017.0[facility] HivjyswHMXCWPZUCW7033-55-15 08:09:00Normal (11/22/16 3:09 AM)[facility] BACTERIAL - OQGBZHUU5374-01-28 23:15:00Negative (11/21/16 6:15 PM)[facility] CARDIAC IDBWFPK8710-32-43 21:11:0083[facility] HermannCHEM VVYRK4678-08-82 21:11:0055.0[facility] LxjjruwKXDXVNBRCS0728-41-75 21:11:00<3[facility] EZXVZRGCTT8739-65-02 21:11:00<0.003[facility] OehkgyzSICBYJWTHI8871-53-43 21:11:00 <2[facility] SksfracJOOGSQNHOO9058-35-41 21:11:004.7[facility] HermannTOXICOLOGY 2016-11-21 16:09:884842Peuufnbm JvqacmvDGEERIQZRE5038-34-54 16:09:009.4[facility] HermannCHEM SVSSG0055-16-70 11:26:001.1[facility] HermannCHEM FREJR5266-58-50 11:26:000.4[facility] HermannCHEM OEKMA5598-15-84 11:26:003.0[facility] HermannCHEM UWFQF3553-30-64 11:26:006.4[facility] HermannCHEM HFWEQ3078-07-58 11:26:0059 [facility]annCHEM VFOQM6611-21-31 11:26:0023[facility] HermannCHEM PANEL 2016-11-21 11:26:0045[facility] HermannCHEM UBOHW8749-95-43 11:26:0017[facility] HermannCHEM WLETL7549-64-65 11:26:003.4[facility] QkdajnqZDJKYPWBDN1651-19-07 11:26:005.0[facility] XxodqabKWXJJHGSLU1648-97-40 11:26:001.0[facility] BRJFOCBKNU5505-14-75 11:26:001.0[facility] UlvlnjzBUISHCAQOY9280-75-11 11:26:00 Normal (11/21/16 6:26 AM)[facility] DheavkgDWWSZFRTSG3092-64-77 11:26:000.0[facility] XomomsjMZARUOGSEN2921-88-92 11:26:00Normal (11/21/16 6:26 AM)[facility] ISTHCFXMKQ4390-63-77 11:26:002[facility] HermannCHEM JFCLF8493-66-14 23:00:000.4 [facility] HermannCHEM SEMCW4858-69-37 14:13:003.5[facility] HermannCHEM PANEL 2016-11-20 13:53:004.5[facility] HermannCHEM LOQSM7954-53-65 13:53:002.1[facility] HermannCHEM LEGSZ1790-98-95 13:53:002.8[facility] HermannDRUG CNNKQZ4603-70-88 13:53:00See Note (11/20/16 8:53 AM)[facility]annDRUG FLDZCS7423-72-92 13:53:00 Negative *NA*(11/20/16 8:53 AM)[facility]annDR[facility] BORWPL9642-73-26 13:53:00 Negative *NA*(11/20/16 8:53 AM)[facility]annDR[facility] HHMRGB9279-14-44 13:53:00 Negative *NA*(11/20/16 8:53 AM)[facility]annDR[facility] NKRVHM5085-25-44 13:53:00 Positive *ABN*(11/20/16 8:53 AM)[facility]annDR[facility] SIKGMZ3624-10-08 13:53:00 Negative *NA*(11/20/16 8:53 AM)[facility]annDR[facility] WAJVBD1366-25-08 13:53:00 Negative *NA*(11/20/16 8:53 AM)[facility]annDR[facility] AOPOTS4875-16-59 13:53:00 Negative *NA*(11/20/16 8:53 AM)[facility] WbimgfsQGWISYSTVJ1701-97-49 13:53:00<2 [facility] OnivnyrQKMXABPQKY5835-97-99 13:53:00<1.7[facility] HermannURINE AND STOOL 2016-11-20 13:53:001[facility] AND PDZBX7919-17-50 13:53:001[facility]UR[facility] AND POAMA0159-53-09 13:53:002[facility]UR[facility] AND STOOL 2016-11-20 13:53:00Negative (11/20/16 8:53 AM)[facility] STOOL 2016-11-20 13:53:00Negative *NA*(11/20/16 8:53 AM)[facility] STOOL 2016-11-20 13:53:00Negative (11/20/16 8:53 AM)[facility] STOOL 2016-11-20 13:53:00Negative (11/20/16 8:53 AM)[facility] STOOL 2016-11-20 13:53:005.0[facility]UR[facility] AND SZEWW7380-70-22 13:53:001.014 [facility] UOLXF2047-32-69 13:53:00Slight *ABN*(11/20/16 8:53 AM) [facility] CYCVA3091-67-16 13:53:00Yellow *NA*(11/20/16 8:53 AM) [facility] RBJR0209-38-19 13:53:00Negative (11/20/16 8:53 AM)[facility] NZDQV7949-89-19 18:15:001[facility] AND STOOL 2016-05-12 18:15:001[facility] AND SENER6923-73-02 18:15:00Negative (05/12/16 1:15 PM)[facility] CJXBQ7802-00-22 18:15:00Negative (05/12/16 1:15 PM)[facility] PWOAK4154-20-88 18:15:00Negative (05/12/16 1:15 PM)[facility] WIIRN5209-84-88 18:15:00Negative *NA*(05/12/16 1:15 PM)[facility] CLRKZ3264-35-05 18:15:00Clear (05/12/16 1:15 PM)[facility] IFJXD3569-21-46 18:15:00Light Yellow *NA*(05/12/16 1:15 PM)[facility] UPCNQ4519-25-83 18:15:006.0 [facility] BOSUD9514-59-64 18:15:001.014[facility]UR[facility] BSGG6974-63-96 18:15:00Negative (05/12/16 1:15 PM)[facility] HermannCARDIAC ENZYMES 2016-05-12 17:53:00<0.7[facility] HermannCARDIAC NCKZIKU1588-72-64 17:53:00<0.02 [facility]annCARDIAC SDJKTFP8233-53-67 17:53:00<0.5[facility] HermannCARDIAC YHGABUQ7798-98-32 17:53:0070[facility] HermannCHEM FNHUW1275-95-71 17:53:26683 [facility]annCHEM SRNRX9906-57-67 17:53:0092[facility] HermannCHEM PANEL 2016-05-12 17:53:0016[facility] HermannCHEM KEFJK6832-64-60 17:53:000.63[facility] HermannCHEM WVGES1061-96-35 17:53:0065[facility] HermannCHEM EKOOC8609-04-43 17:53:000.2[facility] HermannCHEM WYDTV3548-68-63 17:53:0027[facility] HermannCHEM NASBE5086-23-54 17:53:0031[facility] HermannCHEM REGIZ7096-43-95 17:53:006.7 [facility]annCHEM ACMQV2128-14-28 17:53:003.5[facility] HermannCHEM PANEL 2016-05-12 17:53:61990Rzdblhjw HermannCHEM RKLEP4174-59-27 17:53:008.9[facility] HermannCHEM JHHKM4206-18-78 17:53:006.7[facility] HermannCHEM LGCBY6426-45-25 17:53:0025[facility] HermannCHEM ZUPXD9716-48-99 17:53:0017[facility] HermannCHEM CADDM2562-80-50 17:53:003.2[facility] HermannCHEM NRYDX7312-98-36 17:53:001.1 [facility]annCHEM ZPQFM4513-29-85 17:53:29169Hyyowsfq HermannCHEM PANEL 2016-05-12 17:53:004.7[facility] HermannCHEM UTZJO0680-85-43 17:53:003.5[facility] HermannCHEM GPGMT4967-81-91 17:53:001.8[facility] HccrltlWZGQMQGFSF3739-89-93 17:53:000.3[facility] HnzxjgtPUVRMGKKSB2278-77-46 17:53:000.1[facility] WXUDGSSPUJ1891-29-83 17:53:003.1[facility] LzjjslqOGOXPXALQQ2099-43-50 17:53:000.6 [facility] MxytrhqJRINVVQKZV8903-08-12 17:53:000.5[facility] HermannHEMATOLOGY 2016-05-12 17:53:005.4[facility] AepkttnFQAAJAMPHE1905-32-28 17:53:003.0[facility] EprgyvnDYVIGTYFYA6700-03-80 17:53:0033.0[facility] BmmwaquSCZLCOYUGG4066-78-34 17:53:006.2[facility] HebegukXKTVRZXRMS2537-12-41 17:53:0057.3[facility] LHJWSRSJYK7033-26-11 17:53:000.35[facility] VcgtwguFYWXNZRUYE6324-11-54 17:53:00* Test Item Value Reference Range Interpretation Comments PT (test code = PT) 13.2 s 12.0-14.7 [facility] KzcwfcqMUPLYJHOSP8184-79-70 17:53:000.97[facility] HermannHEMATOLOGY 2016-05-12 17:53:96391Vnyaotym TkvmufpTIFWGMCPLH3447-55-09 17:53:009.1[facility] BitoqmkCOMGWWMOKD3949-23-97 17:53:0033.8[facility] WssrgmnOVTWXWBGHB8397-38-46 17:53:0014.4[facility] PmljwysMQAKUCHHOM0913-60-99 17:53:00* Test Item Value Reference Range Interpretation Comments MCH (test code = MCH) 28.5 pg 27.0-31.0 [facility] UzvchxpSLPRCKOIOG3310-81-45 17:53:0039.8[facility] HermannHEMATOLOGY 2016-05-12 17:53:0013.5[facility] RqypopxGMORWSHWHG1838-48-32 17:53:0084.2[facility] YpxnslnYGPDUDJINA6235-78-97 17:53:009.5[facility] LwpzkfbUAVNIABSOK7831-94-06 17:53:004.73[facility] NvhzaubKETWBDLODF2473-55-14 20:40:00Negative (03/28/16 3:40 PM)[facility] HermannCARDIAC FMZQJJJ0606-31-43 19:50:00<1.3[facility] HermannCARDIAC BHZKDQW7712-69-73 19:50:00<0.02[facility] HermannCARDIAC FVVRPGL1429-07-32 19:50:00<0.5[facility] HermannCARDIAC ROOQHPU1232-42-89 19:50:0039[facility] CARDIAC WUOARIJ8060-76-27 19:50:0077[facility] HermannCHEM VNGVY7794-68-06 19:50:99520Tmtigxtb HermannCHEM KYZMW1772-93-78 19:50:09286Gholjutw HermannCHEM HUARW9324-53-38 19:50:000.65[facility] HermannCHEM BZXMY1010-00-98 19:50:0072 [facility]annCHEM KPPQJ3520-89-05 19:50:0013[facility] HermannCHEM PANEL 2016-03-28 19:50:79047Wplzrxsg HermannCHEM CIEUQ0916-03-04 19:50:004.1[facility] HermannCHEM DIUMX8209-66-37 19:50:008.2[facility] HermannCHEM LCZZG7517-04-76 19:50:0027[facility] HermannCHEM GGABM8578-28-96 19:50:001.0[facility] HermannCHEM NVZDO8220-69-02 19:50:0020[facility] HermannCHEM NVLIZ6556-61-67 19:50:002.9 [facility]annCHEM OZRAO4286-73-09 19:50:0010[facility] HermannCHEM PANEL 2016-03-28 19:50:000.2[facility] HermannCHEM OTHYQ3984-08-52 19:50:0010.1[facility] HermannCHEM KBMSD4811-43-80 19:50:003.0[facility] HermannCHEM HCPSY4497-42-48 19:50:0020[facility] HermannCHEM JQDJZ8140-08-14 19:50:005.9[facility] HermannCHEM UZPDN8499-82-44 19:50:0052[facility] MoglivgTNUAJFEANT9691-50-67 19:50:000.1 [facility] MwcblizSNCTCQHJKA9958-78-52 19:50:004.8[facility] HermannHEMATOLOGY 2016-03-28 19:50:001.1[facility] NsapvcqLBQLALHSZP8878-50-18 19:50:000.2[facility] HcsydylXRIYVOZHPA4290-76-02 19:50:003.0[facility] EixnmlgWRSMOVFTRV8565-95-47 19:50:000.6[facility] SfjwfclNLKQWJGLOW8302-79-13 19:50:0034.3[facility] FRUMSVCQWA0029-09-74 19:50:0055.1[facility] UpeyivpOBLTNCVKVP6403-95-55 19:50:00 6.7[facility] KeipwdjKQMSYQGOVA2189-43-77 19:50:002.8[facility] HermannHEMATOLOGY 2016-03-28 19:50:008.9[facility] EuhfvpcVZVDLWPMGU5235-98-47 19:50:0012.9[facility] IrqtzrtMARMSZUUQB5998-38-91 19:50:004.63[facility] XstpnteXVSVMDPFLH6613-49-73 19:50:95116Fgdklqfm PsjiozaYTIOYVXPPE1640-18-13 19:50:008.8[facility] YGEHOMNKMI5716-91-53 19:50:0014.2[facility] FxfhyuxEVISLSLJGX1751-84-93 19:50:00 37.9[facility] VwjhapqKNGVVLZOYD9479-74-03 19:50:0034.0[facility] HermannHEMATOLOGY 2016-03-28 19:50:0081.8[facility] IczpywuZXBZYKLPXY6626-80-22 19:50:00* Test Item Value Reference Range Interpretation Comments MCH (test code = MCH) 27.8 pg 27.0-31.0 [facility]
--- OUTSIDE RECORDS SUMMARY | 2020-03-27 22:41 | XMS REPORT | Summary of Care ---
Author Author [facility] - Health Organization [facility] Address Unknown Phone Unavailable Care Team Providers Care Ampoule Sealer Name Role Phone [facility] PCP [phone] Reason for Referral * (ZOË) Referred By Contact Referred To Contact Status Reason Specialty Diagnoses / Procedures Rama Adams MD [address] [place] [address]. [address] [place] [address] New Request IM-GASTROENTEROL Diagnoses OGY Generalized abdominal pain P rocedures Discharge Follow-Up: Specialty Service IM-GASTROENTEROLOG Y; 3-5 Days * (Routine) Referred By Contact Referred To Contact Status Reason Specialty Diagnoses / Procedures Rama Adams MD [address] [place] [address]. [address] [place] [address] [facility] [address] [place] [address] New Request Diagnoses Generalized abdominal pain P rocedures Discharge Follow-up: PCP [facility]; 3-5 Days * Radiology Services (ZOË) Referred By Contact Referred To Contact Status Reason Specialty Diagnoses / Procedures Barby Cardenas, PAC [address] [address] New Request Diagnostic Diagnoses Radiology Lower abdominal pain P rocedures XR CHEST 2 VW * Radiology Services (STAT) Referred By Contact Referred To Contact Status Reason Specialty Diagnoses / Procedures Barby Cardenas PAC [address] [address] New Request Diagnostic Diagnoses Radiology LLQ pain P rocedures US OVARY TORSION * MRI/CAT Scan (STAT) Referred By Contact Referred To Contact Status Reason Specialty Diagnoses / Procedures Barby Cardenas, CALLY [address] [address] New Request Diagnostic Diagnoses Radiology LLQ pain P rocedures CT ABDOMEN PELVIS W CONTRAST Reason for Visit * Reason Comments Flank Pain * Auth/Cert Referred By Contact Referred To Contact Status Reason Specialty Diagnoses / Procedures [facility] Emergency Dept [address] [place] [address] [place] [address] Emergency Medicine Encounter Details Care Team Description Date Type Department Barby Cardenas, CALLY [address] [address] Cristine Alvarez MD [address] [place] [address] [id number] Generalized abdominal pain 12/17/2019 Emergency [facility] Medicine Sur[facility] Unit - [address] [place] [address] 12/18/2019 [place] [address] Allergies Comments Active Allergy Reactions Severity Noted Date Pt states that she stops breathing when she takes this medication. Trazodone Unknown - See 01/12/2018 comments Vistaril Im (Hcl Salt) Nausea and/or 09/18/2016 Vomiting documented as of this encounter (statuses as of 12/18/2019) Medications End Date Status Medication Sig Dispensed Refills Start Date Active clonazePAM 1 mg tablet Take 1 mg by 0 mouth 2 (two) times daily. Active paliperidone 6 mg 24 hour Take 6 mg by 0 tablet mouth 2 (two) times daily. Active SERTraline (ZOLOFT) 25 mg Take 25 mg by 0 tablet mouth daily. Active indomethacin 50 mg Take 50 mg by 0 capsule mouth daily. Active tiZANidine 4 mg capsule Take 4 mg by 0 mouth daily. Active ARIPiprazole (ABILIFY) 15 Take 15 mg by 0 mg tablet mouth at bedtime. Active doxepin 50 mg capsule Take 50 mg by 0 mouth at bedtime. Active traMADol 50 mg tablet Take 50 mg by 0 mouth every 8 (eight) hours. 12/18/2019 Discontinued (Error) topiramate (TOPAMAX) 25 Take 1 tablet 60 tablet 0 mg tablet by mouth 2 7 (two) times daily. 12/18/2019 Discontinued (Error) topiramate 100 mg tablet Take by 0 mouth. 12/18/2019 Discontinued (Error) paliperidone 9 mg 24 hr Take 9 mg by 0 tablet mouth. 12/18/2019 Discontinued (Error) acetaZOLAMIDE 125 mg Take 150 mg 0 tablet by mouth. 12/18/2019 Discontinued (Error) levothyroxine 50 mcg Take 50 mcg 0 tablet by mouth. 12/18/2019 Discontinued (Error) codeine-guaifenesin Take 10 mL by 120 mL 0 06/23 (CHERATUSSIN AC) 10-100 mouth every 6 9 mg/5 mL (six) hours solutionIndications: as needed for Acute viral syndrome Cough. 12/18/2019 Discontinued (Error) chlorpheniramine 4 mg Take 1 tablet 30 tablet 0 tabletIndications: Acute by mouth 9 viral syndrome every 6 (six) hours as needed for Allergies or Runny nose. 12/18/2019 Discontinued (Error) Umllqztiy-JF-Swhmdxdz-Gua As directed 2 Bottle 0 ifen (TYLENOL COLD AND on bottle. 9 FLU SEVERE) [id number] Daytime and mg/15 mL LiqdIndications: nighttime Acute viral syndrome combo pack 12/18/2019 Discontinued (Error) benzonatate 100 mg Take 1 14 capsule 0 01 capsuleIndications: Acute capsule by 9 viral syndrome mouth 3 (three) times daily as needed for Cough. 12/18/2019 Discontinued (Error) azithromycin 250 mg Take 1 tablet 1 Package 0 tabletIndications: by mouth 9 Wheezing, Atypical daily. Take pneumonia 500 mg day 1, then 250 mg days 2 to 5. 12/18/2019 Discontinued (Error) fluticasone (FLONASE Use 2 Sprays 10 g 0 SENSIMIST) 27.5 in each 9 mcg/actuation nasal nostril sprayIndications: daily. Wheezing, Atypical pneumonia 12/18/2019 Discontinued (Error) albuterol 90 Inhale 2 8.5 g 0 mcg/actuation Puffs every 4 9 inhalerIndications: (four) hours Wheezing, Atypical as needed for pneumonia Wheezing or Shortness of Breath. documented as of this encounter (statuses as of 12/18/2019) Active Problems Problem Noted Date Tachycardia 12/18/2019 Generalized abdominal pain 12/18/2019 Essential hypertension 12/18/2019 Morbid obesity with body mass index of 40.0-49.9 Morbid obesity with body mass index of 50 or higher 10/18/2016 documented as of this encounter (statuses as of 12/18/2019) Social History Date Tobacco Use Types Packs/Day Years Used Current Every Day Smoker Cigarettes 1.5 Smokeless Tobacco: Never Used Tobacco Cessation: Ready to Quit: No; Co unseling Given: No Comments: 1-2 pks per day Drinks/Week oz/Week Comments Alcohol Use 0 Standard drinks or equivalent 0.0 Not Asked Financial Resource Strain Answer Date Recorde d How hard is it for you to pay for the very basics Not hard at all 12/18/2019 like food, housing, medical care, and h eating? Food Insecurity Answer Date Recorded Within the past 12 months, you worried that your Never mara e 12/18/2019 food would run out before you got money to buy more. Within the past 12 months, the food you bought Never true 12/18/2019 just didn't last and you didn't have mo kevin to get more. Transportation Needs Answer Date Recorded In the past 12 months, has lack of transportation No 12/18/2019 kept you from medical appointments or f rom getting medications? In the past 12 months, has lack of transportation No 12/18/2019 kept you from meetings, work, or gettin g things needed for daily living? Sex Assigned at Date Recorded Not on file Industry Job Start Date Occupation Not on file Not on file Not on file Travel End Travel History Travel Start No recent travel history available. Date Recorded COVID-19 Exposure Response 12/17/2019 6:57 PM CDT In the last month, have you been in contact with No / Unsure someone who was confirmed or suspected to have Coronavirus / COVID-19? documented as of this encounter Last Filed Vital Signs Reading Time Taken Comments Vital Sign 154/99 12/18/2019 3:58 PM CDT Blood Pressure 89 12/18/2019 3:58 PM CDT Pulse 37.1 C (98.7 F) 12/18/2019 3:58 PM CDT Temperature 20 12/18/2019 3:58 PM CDT Respiratory Rate 100% 12/18/2019 3:58 PM CDT Oxygen Saturation - - Inhaled Oxygen Concentration 109.8 kg (242 lb) 12/17/2019 7:06 PM CDT Weight 162.6 cm (5' 4") 12/17/2019 7:06 PM CDT Height 41.54 12/17/2019 7:06 PM CDT Body Mass Index documented in this encounter Progress Notes * Erickson Griffin RN - 12/18/2019 10:59 AM CDT Care Management Note 12/18/2019 10:59 AM Case management has notified patient via telephone of a ADKINS (Medicare Outpatien t Observation Notice), which notifies a patient of their outpatient observation status and its affect on coverage and payment of care during and after the [facility]'s hospital stay. Patient verbally agrees to information provided. Copy of let ter sent to patient via email. [email or web address] No signature collected to reduce exposure during COVID-19 pandemic. * Erickson Griffin RN - 12/18/2019 10:58 AM CDT Care Management Social Functional Assessment Patient Name: Teena Levy Age: [age] year old Sex: female 1N Previous admit date: N/A Current diagnosis and co-morbidities: tachycardia Readmission Questions: Was patient discharged from any acute care hospital within the last 30 days: No Social Functional Assessment: Primary language spoken/preferred: Stateless Mental Status: Alert & Oriented to Person,Place & Time Information given by: Self Patient's support system: Spouse Name and number of support system: abner hdez [phone] Primary Clinical Nursing Coordinator: Self MPOA: No Living Arrangement: Home Address of living arrangement : [address] [place], [place] Persons living in home: Spouse;Child;Same as support system Names & numbers of persons living in home: 2 minors Barriers to returning home: None Baseline functional status- ambulation: Independent Functional status-baseline personal care: Independent Baseline functional status- driving: Independent Baseline functional status- grocery shopping: Independent Functional status-baseline housekeeping: Independent Functional status-baseline meal prep: Independent Current functional status same as prior: Yes Do you have a PCP?: Yes Name of PCP: [facility] Care Agency: No Provider Services: No DME Company: No Equipment: Nebulizer;Other Other equipment: bp cuff Hemodialysis: No Funding Resources: Medicare Replacement Medicare Replacement name and information: [employer] Prescription coverage plan: Medicare Part D Pharmacy where meds are filled: Other Other pharmacy: [facility] Anticipated services prior to disharge: Continue Medical Eval;Lab Values Expected mode of discharge transportation: Same as support system Additional info required for discharge planning: Pending medical evaluation Recommended discharge plan: Home SFA Complete: Social Functional Assessment complete: Yes Alcohol Use Screening (AUDIT-C) How often do you have a drink containing alcohol?: Never SCORE: 0 Did patient elect to have resources provided: No Any issues or concerns with obtaining/affording your medications at home: no. Are you or your support system able to black pickler medications at discharge: yes. D escribe: family. Role of Care Management explained. Erickson Griffin RN BSN not for patient use [email or web address] documented in this encounter Plan of Treatment Health Maintenance Due Date Last Done Comments VARICELLA VACCINES (1 of 1990 2 - 2-dose childhood series) PNEUMOCOCCAL 0-64 YEARS 1995 COMBINED SERIES (1 of 1 - PPSV23) DTaP,Tdap,and Td Vaccines 2000 (1 - Tdap) PAP SMEAR 2010 INFLUENZA VACCINE (#1) 2019 documented as of this encounter Procedures Comments Procedure Name Priority Date/Time Associated Diag nosis ECHO ROUTINE W/DOPPLER Routine 12/18/2019 Tachyca rdia COLOR 10:49 AM CDT VITAMIN D, 25-OH Routine 12/18/2019 4:33 AM CDT FREE T4 STAT 12/17/2019 Tachycardia 11:50 PM CDT EKG-12 LEAD Routine 12/17/2019 11:44 PM CDT EKG-12 LEAD Routine 12/17/2019 11:38 PM CDT XR CHEST 2 VW ZOË 12/17/2019 Lower abdominal pain 11:23 PM CDT ADC / LCC - DRUG SCREEN STAT 12/17/2019 LLQ pa in TRIAGE 10:13 PM CDT TEST, URINE STAT 12/17/2019 Add-On 10:13 PM CDT LACTIC ACID WHOLE BLOOD STAT 12/17/2019 LLQ pa in 10:10 PM CDT D-DIMER STAT 12/17/2019 LLQ pain 10:[address] ABDOMEN PELVIS W STAT 12/17/2019 LLQ pain CONTRAST 8:47 PM CDT US OVARY TORSION STAT 12/17/2019 LLQ pain 8:34 PM CDT CORONAVIRUS COVID-19 STAT 12/17/2019 Flank tuan n TESTING 7:16 PM CDT CBC WITH DIFFERENTIAL STAT 12/17/2019 Flank pa in 7:14 PM CDT FREE T3 STAT 12/17/2019 Tachycardia Add-On 7:14 PM CDT URINALYSIS STAT 12/17/2019 Flank pain 7:14 PM CDT CBC WITH DIFFERENTIAL Routine 12/17/2019 Flank pa in 7:14 PM CDT COMP. METABOLIC PANEL STAT 12/17/2019 Flank pa in ([id number]) 7:14 PM CDT THYROID STIMULATING STAT 12/17/2019 Tachycardi a HORMONE Add-On 7:14 PM CDT LIPASE STAT 12/17/2019 Flank pain 7:14 PM CDT POCT TEST Routine 12/17/2019 Flank pain 7:10 PM CDT documented in this encounter Results * VITAMIN D, 25-OH (12/18/2019 4:33 AM CDT) VIT D 25OH 30 25 - 80 ng/mL [facility] Specimen Blood - LINE, VENOUS Narrative Performed At Deficiency: <20 ng/mL [facility] Insufficiency: 20-24 ng/mL SERVICES Optimal: 25-80 ng/mL Performing Organization Address [facility] one Number [facility] CLIA: [id number], [address] [place] [address] * FREE T4 (12/17/2019 11:50 PM CDT) FREE T4 0.74 (L) 0.78 - 2.20 ng/dL [facility] Specimen Blood - ARM, LEFT Performing Organization Address [facility] one Number [facility] CLIA: [id number], [address] [place] [address] * XR CHEST 2 VW (12/17/2019 11:23 PM CDT) Specimen Impressions Performed At No acute cardiopulmonary disease. PACS/VR/DOSE Narrative Performed At CHEST 2 VIEWS: PACS/VR/DOSE HISTORY:Abdomen pain, tachycardia TECHNIQUE:: PA and lateral views of t he chest are obtained. COMPARISON: 07/26/2019 FINDINGS: The lungs are clear. The hear t size and mediastinal silhouette are normal. No pleural effusion or pneu mothorax is seen. Procedure Note [facility], Radiant Results Inft User - 12/17/2019 11:36 PM CDT CHEST 2 VIEWS: HISTORY:Abdomen pain, tachycardia TECHNIQUE:: PA and lateral views of the chest are obtained. COMPARISON: 07/26/2019 FINDINGS: The lungs are clear. The heart size and mediastinal silhouette are normal. No pleural effusion or pneumothorax is seen. IMPRESSION No acute cardiopulmonary disease. Performing Organization Address [facility] one Number PACS/VR/DOSE * TEST, URINE (12/17/2019 10:13 PM CDT) PREG URINE Negative [facility] Specimen Urine - URINE, CLEAN CATCH Narrative Performed At Less than 20 IU/L. If low titer or ectopic pregnanc y is suspected, resubmit [facility] specimen in 48-72 hours. HOSPITAL [facility] Performing Organization Address City/[facility] Ph one Number [facility] CLIA: [id number], [address] [place] [address] * ADC / LCC - DRUG SCREEN TRIAGE (12/17/2019 10:13 PM CDT) BENZO U Negative Negative [facility] HARDIK U Negative Negative [facility] AMPHET Negative Negative [facility] THC Negative Negative [facility] METHADONE Negative Negative [facility] Meth U Negative Negative [facility] OPIATES Negative Negative [facility] Cocaine Negative Negative [facility] PROPOXY Negative Negative [facility] Tric U Negative Negative [facility] PCP Negative Negative [facility] OXYCOD Negative Negative [facility] Specimen Urine - URINE, CLEAN CATCH Narrative Performed At Urine Drug Cutoff Ranges [facility] Benzodiazepines: 150 ng/mL [facility] Barbiturates: 200 ng/mL Amphetamine: 500 ng/mL Cannabinoids: 50 ng/mL Methadone: 200 ng/mL Methamphetamine: 500 ng/mL Opiates: 100 ng/mL or 2000 ng/mL Cocaine: 150 ng/mL Propoxyphene: 300 ng/mL Tricyclics: 300 ng/mL Oxycodone: 100 ng/mL PCP: 25 ng/mL The results are to be used only for med ical (i.e., treatment) purposes. Unconfirmed screening results must not be used for non-medical purposes (e.g., employment testing, legal testing). Performing Organization Address [facility] Ph one Number [facility] CLIA: [id number], [address] [place] [address] * Lactic Acid Whole Blood (12/17/2019 10:10 PM CDT) LACTIC ACID 1.08 0.30 - 2.60 mmol/L [facility] Specimen Blood - VENOUS Performing Organization Address City/[facility] one Number [facility] CLIA: [id number], [address] [place] [address] * D-DIMER (12/17/2019 10:10 PM CDT) D-DIMER <0.27 <0.41 g/mL (FEU) [facility] Specimen Blood - VENOUS Narrative Performed At This test may be used in conjunction with a clinical pretest probability (PTP) [facility] assessment model to exclude venous thromboembolism (V TE) in patients suspected [facility] of deep venous thrombosis (DVT) and pul monary embolism (PE) A D-Dimer value less than 0.50 g/ml ( FEU) has a negative predicative value of 96 to 100% (95% CI)and 97 to 100% (95% CI) as an aid in the diagnosis of deep vein thrombosis (DVT) and pulmonary emb olism when there is low or moderate pretest probability of PE or DVT. D-Dimer values are expressed in initial fibrinogen equivalent units (FEU)" The assay results should be used with o ther information, including the clinical context, in forming a diagnosis. Performing Organization Address City/State/Zipcode Ph one Number [facility] CLIA: [id number], [address] [place] [address] * CT ABDOMEN PELVIS W CONTRAST (12/17/2019 8:47 PM CDT) Specimen Impressions Performed At No acute intra-abdominal findings. PACS/VR/DOSE Hepatomegaly. Preliminary Report Dictated by Resident : Joseph Finn I, Ike Bowens MD., have reviewed this study and agree with the above report. Narrative Performed At EXAM: CT ABDOMEN PELVIS W CONTRAST PACS/VR/DOSE HISTORY: Abd infection (incl peritoniti s) COMPARISON: None. DOSE: DLP-655 mGy-cm TECHNIQUE AND FINDINGS: Contiguous axia l imaging from the level of the lung bases through the proximal thighs was p erformed after the uncomplicated administration of 120 mL of intravenous Omnipaque contrast material. Coronal and sagittal reconstructions we re obtained. Auto mA and/or iterative reconstruction were used to reduce radiation dose. FINDINGS: LOWER THORAX: Few patchy bilateral lowe r lobe groundglass opacities are noted and may represent subsegmental at electasis. No cardiomegaly. LIVER: Hepatomegaly with the liver paris uring 24.5 cm.. No focal hepatic lesions. Normal contour. GALLBLADDER AND BILIARY TREE: No biliar y ductal dilation. No gallbladder wall thickening. SPLEEN: No splenomegaly. Small accessor y splenule is seen. PANCREAS: No ductal dilation or masses. ADRENAL GLANDS: No adrenal nodules. KIDNEYS: No hydronephrosis, stones, or masses. PERITONEUM AND RETROPERITONEUM: No free air or fluid. Small fat filled umbilical hernia. LYMPH NODES: No enlarged lymphadenopath y. GI TRACT: No dilation or wall thickenin g. Normal appendix. PELVIS/BLADDER: The bladder, uterus and ovaries are unremarkable VESSELS: Unremarkable. Retroaortic left renal vein BONES AND SOFT TISSUES: No suspicious l ytic or sclerotic bony lesions. Soft tissue nodularity in the bilateral gluteal soft tissues may represent noncalcified granulomas. Procedure Note [facility], Radiant Results Inft User - 12/17/2019 10:27 PM CDT EXAM: CT ABDOMEN PELVIS W CONTRAST HISTORY: Abd infection (incl peritonitis) COMPARISON: None. DOSE: DLP-655 mGy-cm TECHNIQUE AND FINDINGS: Contiguous axial imaging from the level of the lung bases through the proximal thighs was performed after the uncomplicated administration of 120 mL of intravenous Omnipaque contrast material. Coronal and sagittal reconstructions were obtained. Auto mA and/or iterative reconstruction were used to reduce radiation dose. FINDINGS: LOWER THORAX: Few patchy bilateral lower lobe groundglass opacities are noted and may represent subsegmental atelectasis. No cardiomegaly. LIVER: Hepatomegaly with the liver measuring 24.5 cm.. No focal hepatic lesions. Normal contour. GALLBLADDER AND BILIARY TREE: No biliary ductal dilation. No gallbladder wall thickening. SPLEEN: No splenomegaly. Small accessory splenule is seen. PANCREAS: No ductal dilation or masses. ADRENAL GLANDS: No adrenal nodules. KIDNEYS: No hydronephrosis, stones, or masses. PERITONEUM AND RETROPERITONEUM: No free air or fluid. Small fat filled umbilical hernia. LYMPH NODES: No enlarged lymphadenopathy. GI TRACT: No dilation or wall thickening. Normal appendix. PELVIS/BLADDER: The bladder, uterus and ovaries are unremarkable VESSELS: Unremarkable. Retroaortic left renal vein BONES AND SOFT TISSUES: No suspicious lytic or sclerotic bony lesions. Soft tissue nodularity in the bilateral gluteal soft tissues may represent noncalcified granulomas. IMPRESSION No acute intra-abdominal findings. Hepatomegaly. Preliminary Report Dictated by Resident: Ike Bain MD., have reviewed this study and agree with the above report. Performing Organization Address City/State/Zipcode Ph one Number PACS/VR/DOSE * US OVARY TORSION (12/17/2019 8:34 PM CDT) Specimen Impressions Performed At The ovaries are normal in size and demonstrate normal arterial and venous PACS/VR/DOSE waveforms, making torsion unlikely. Preliminary Report Dictated by Resident : Ike Bain MD., have reviewed this study and agree with the above report. Narrative Performed At EXAM: US OVARY TORSION PACS/VR/DOSE HISTORY: LLQ pain, r/o torsion TECHNIQUE: Transabdominal And Transvagi nal grayscale sonographic examination was performed. The pulmonar y vasculature was interrogated using color and spectral Doppler. Representat juanita images with recorded HISTORY: LLQ pain, r/o torsion COMPARISON: Same day CT abdomen and p michael with contrast FINDINGS: The uterus is normal in size and echote xture and exhibits no masses or focal defects. Uterus is retroverted. I t measures 7.8 x 3.3 x 4.2 cm. The endometrial stripe measures a normal 4 mm.. A small amount of fluid is noted within the endometrial cavity and cervix. Both ovaries are normal in size and ech otexture. The right ovary measures 2.8 x 1.9 x 2. 4 cm, 6.99 mL. The right ovary demonstrates normal arterial and venous waveforms. The left ovary measures 2.7 x 1.8 x 2.4 cm, 6.25 mL. The left ovary demonstrates normal arterial and venous waveforms. No fluid is present in the cul-de-sac. Procedure Note [facility], Radiant Results Inft User - 12/17/2019 10:29 PM CDT EXAM: US OVARY TORSION HISTORY: LLQ pain, r/o torsion TECHNIQUE: Transabdominal And Transvaginal grayscale sonographic examination was performed. The pulmonary vasculature was interrogated using color and spectral Doppler. Site Leasing Agent images with recorded HISTORY: LLQ pain, r/o torsion COMPARISON: Same day CT abdomen and pelvis with contrast FINDINGS: The uterus is normal in size and echotexture and exhibits no masses or focal defects. Uterus is retroverted. It measures 7.8 x 3.3 x 4.2 cm. The endometrial stripe measures a normal 4 mm.. A small amount of fluid is noted within the endometrial cavity and cervix. Both ovaries are normal in size and echotexture. The right ovary measures 2.8 x 1.9 x 2.4 cm, 6.99 mL. The right ovary demonstrates normal arterial and venous waveforms. The left ovary measures 2.7 x 1.8 x 2.4 cm, 6.25 mL. The left ovary demonstrates normal arterial and venous waveforms. No fluid is present in the cul-de-sac. IMPRESSION The ovaries are normal in size and demonstrate normal arterial and venous waveforms, making torsion unlikely. Preliminary Report Dictated by Resident: Joseph Finn I, Ike Bowens MD., have reviewed this study and agree with the above report. Performing Organization Address [facility] [facility] one Number PACS/VR/DOSE * CORONAVIRUS COVID-19 TESTING (12/17/2019 7:16 PM CDT) SARS-CoV-2 Not Detected Not Detected [facility] LABORATORY Specimen Swab - NASOPHARYNGEAL SWAB Narrative Performed At [facility] COVID-19 Assay is an isothermal nucleic acid amplification test intended [facility] for the qualitative detection of nucleic acid from SA RS-CoV-2 viral RNA in HOSPITAL LABORATORY nasopharyngeal (PIANO MAKER) specimens. It is us ed under Emergency Use Authorization (EUA) by FDA. The limit of detection (L OD) of the assay is 125 Genome Equivalents/mL. A positive result is indicative of the presence of SARS-CoV-2 RNA. Clinical correlation with patient history and ot her diagnostic information is necessary to determine patient infection status. A negative (Not Detected) result does n ot preclude SARS-CoV-2 infection. Clinical correlation with patient histo ry and other diagnostic information should be used in patient management de cisions. Invalid: Please collect a new specimen for repeat patient testing if clinically indicated. Performing Organization Address [facility] one Number [facility] CLIA: [id number], [address] [place] [address] * FREE T3 (12/17/2019 7:14 PM CDT) FREE T3 4.17 2.77 - 5.27 pg/mL [facility] LABOR[facility]ORY Specimen Blood - ARM, LEFT Performing Organization Address City/State/[facility] one Number [facility] CLIA: [id number], [address] [place] [address] * THYROID STIMULATING HORMONE (12/17/2019 7:14 PM CDT) TSH 3.36Comment: Biotin has been 0.45 - 4.70 mIU/L [place] reported to cause a negative [place] bias, interpret results HOSPITAL relative to patient's use of LABORATORY biotin. Specimen Blood - ARM, LEFT Performing Organization Address City/[facility] Ph one Number [facility] CLIA: [id number], [address] [place] [phone] * CBC WITH DIFFERENTIAL (12/17/2019 7:14 PM CDT) Pathologist [facility] WBC 9.39 4.30 - 11.10 [place] 10*3/L [facility] RBC 4.88 3.93 - 5.25 10*6/L [facility] HGB 14.4 11.6 - 15.0 g/dL [facility] HCT 43.3 35.7 - 45.2 % [facility] MCV 88.7 80.6 - 95.5 fL [facility] MCH 29.5 25.9 - 32.8 pg [facility] MCHC 33.3 31.6 - 35.1 g/dL [facility] RDW-SD 43.8 39.0 - 49.9 fL [facility] RDW-CV 13.5 12.0 - 15.5 % [facility] PLT 283 166 - 358 10*3/L [facility] MPV 10.6 9.5 - 12.9 fL [facility] NRBC/100 WBC 0.0 0.0 - 10.0 /100 WBCs [facility] NRBC x10^3 <0.01 10*3/L [facility] GRAN MAT (NEUT) 62.1 % [facility] IMM GRAN % 0.40 % [facility] LYMPH % 27.4 % [facility] MONO % 7.8 % [facility] EOS % 1.9 % [facility] BASO % 0.4 % [facility] GRAN MAT 5.83 1.88 - 7.09 10*3/uL [place] x10^3(ANC) [facility] IMM GRAN x10^3 0.04 0.00 - 0.06 10*3/uL [facility] LYMPH x10^3 2.57 1.32 - 3.29 10*3/uL [facility] MONO x10^3 0.73 0.33 - 0.92 10*3/uL [facility] EOS x10^3 0.18 0.03 - 0.39 10*3/uL [facility] BASO x10^3 0.04 0.01 - 0.07 10*3/uL [facility] Specimen Blood - ARM, LEFT Performing Organization Address City/State/[facility] one Number [facility] CLIA: [id number], [address] [place] [phone] * Urinalysis (12/17/2019 7:14 PM CDT) APPEARANCE Hazy (A) Clear [facility] COLOR Yellow Yellow [facility] PH 7.0 4.8 - 8.0 [facility] SP GRAVITY 1.015 1.003 - 1.030 [facility] GLU U QUAL Normal Normal [facility] BLOOD Negative Negative [facility] KETONES Negative Negative [facility] PROTEIN Negative Negative [facility] UROBILIN Normal Normal [facility] BILIRUBIN Negative Negative [facility] NITRITE Negative Negative [facility] LEUK KURT Negative Negative [facility] RBC/HPF 1 0 - 3 HPF [facility] WBC/HPF 1 0 - 5 HPF [facility] BACTERIA Few (A) Negative [facility] MUCOUS Slight (A) Negative LPF [facility] SQ EPITH 1 HPF [facility] YEAST BUD 5 (H) <=1 HPF [facility] Specimen Urine - URINE, CLEAN CATCH Performing Organization Address [facility] one Number [facility] CLIA: [id number], [address] [place], [place] [address] [address] * Lipase, Serum (12/17/2019 7:14 PM CDT) LIPASE 95 0 - 220 U/L [facility] LABOR[facility]ORY Specimen Blood - ARM, LEFT Performing Organization Address [facility] one Number [facility] CLIA: [id number], [address] [place] [address] * Complete Metabolic Panel (12/17/2019 7:14 PM CDT) NA 142 135 - 145 mmol/L [facility] K 3.9 3.5 - 5.0 mmol/L [facility] CL 108 98 - 108 mmol/L [facility] CO2 TOTAL 25 23 - 31 mmol/L [facility] AGAP 9 2 - 16 [facility] BUN 16 7 - 23 mg/dL [facility] GLUCOSE 107 70 - 110 mg/dL [facility] CREATININE 0.64 0.50 - 1.04 mg/dL [facility] TOTAL BILI 0.2 0.1 - 1.1 mg/dL [facility] CALCIUM 9.6 8.6 - 10.6 mg/dL [facility] T PROTEIN 7.5 6.3 - 8.2 g/dL [facility] ALBUMIN 4.6 3.5 - 5.0 g/dL [facility] ALK PHOS 55 34 - 122 U/L [facility] ALTv 21 5 - 35 U/L [facility] AST(SGOT) 32 13 - 40 U/L [facility] LABOR[facility] eGFR 109.0 mL/min/1.73m2 [facility] (Non- HOSPITAL Citizen Of [place]) LABORATORY eGFR 132.1 mL/min/1.73m2 [facility] ( HOSP[facility] Citizen Of [place]) LABORATORY Specimen Blood - ARM, LEFT Narrative Performed At [facility] Rate (GFR) and S taging of Kidney Disease* [facility]AM[facility]IA PAYNE + + +------ + HOSPITAL LABORATORY | GFR (mL/min/1.73 m2) | With Kidney Damage | Without Kidney Damage + + -------+ + | >90 | S tage one | Normal + + -------+ + | 60-89 | St age two | Decreased GFR + + -------+ + | 30-59 | St age three | Stage three + + -------+ + | 15-29 | St age four | Stage four + + -------+ + | <15 (or dialysis) | Stage fi ve | Stage five + + -------+ + *Each stage assumes the associated GFR level has been in effect for at least three months. Stages 1 to 5, with or without kidney disease, indicate chronic kidney disease. Notes: Determination of stages one and two (with eGFR >59mL/min/1.73 m2) requires estimation of kidney damage fo r at least three months as defined by structural or functional abnormalities of the kidney, manifested by either: Pathological abnormalities or Markers o f kidney damage (including abnormalities in the composition of the blood or urin e or abnormalities in imaging tests). Performing Organization Address City/State/Zipcode Ph one Number [facility] CLIA: [id number], [address] [place] [address] * POCT Test (12/17/2019 7:10 PM CDT) POCT PREG neg On board pos controls acceptable with C Line POCT PREG LOT # [id number] POCT PREG TEST 03/21/2021 DATE Specimen Urine - URINE, CLEAN CATCH documented in this encounter Visit Diagnoses Diagnosis Tachycardia - Primary Tachycardia, unspecified Flank pain Abdominal pain, unspecified site LLQ pain Abdominal pain, left lower quadrant Lower abdominal pain Abdominal pain, other specified site Generalized abdominal pain Abdominal pain, generalized Morbid obesity with body mass index of 40.0-49.9 Essential hypertension Unspecified essential hypertension documented in this encounter Administered Medications Action Date Dose Rate Site Medication Order MAR Action acetaminophen (TYLENOL) tablet 650 mg 650 mg, Oral, Q6HPRN, Starting Tue12/18/19 at 0340, Until Discontinued, Routine, Pain (scale 1-3) 12/18/2019 8:50 AM CDT 1 mg clonazePAM (KLONOPIN) tablet 1 mg Given 1 mg, Oral, BID, First dose on Tue12/18/19 at 0800, Until Discontinued, Routine hydralAZINE (APRESOLINE) injection 10 m g 10 mg, Intravenous, Q6HPRN, Starting 12/18/19 at 0405, Until Discontinued, Routine, Hypertension 12/18/2019 1:53 PM CDT 1 tablet HYDROcodone-acetaminophen (NORCO 5) Given 5-325 mg tablet 1 tablet 1 tablet, Oral, Q6HPRN, Starting Tue12/18/19 at 0340, Until Tue12/20/19 at 0339, Routine, Pain (scale 4-6), Hold for SBP<110, DBP<60, RR<12, and/or drowsiness/sedation 1 tablet Given 12/18/2019 7:39 AM CDT 12/18/2019 3:33 PM CDT 2 mg morpHINE injection 2 mg Given 2 mg, Slow IV Push, Q4HPRN, Starting 12/18/19 at 0340, Until Tue12/19/19 at 0339, Routine, Pain (scale 7-10), Hold for SBP<110, DBP<60, RR<12, and/or drowsiness/sedation 2 mg Given 12/18/2019 11:54 AM CDT 2 mg Given 12/18/2019 4:29 AM CDT 12/18/2019 1:50 PM CDT 1,000 mL 125 mL/hr NaCl 0.9% (NS) IV infusion 1,000 mL New Bag at 125 mL/hr, IV Infusion, CONTINUOUS, Starting Tue12/18/19 at 0500, Until Discontinued, Routine 1,000 mL 125 mL/hr New Bag 12/18/2019 4:29 AM CDT 12/18/2019 11:59 AM CDT 1 Patch nicotine (NICODERM) 21 mg/24 hr patch 1 Given Patch 1 Patch, Topical, Administer over 24 Hours, Q24H, First dose on Tue12/18/19 at 1300, Until Discontinued, Routine ondansetron (ZOFRAN (PF)) injection 4 m g 4 mg, Slow IV Push, Q6HPRN, Starting 12/18/19 at 0340, Until Discontinued, Routine, Nausea and Vomiting (N/V) 12/18/2019 8:50 AM CDT 25 mg SERTraline (ZOLOFT) tablet 25 mg Given 25 mg, Oral, DAILY, First dose on Tue12/18/19 at 0900, Until Discontinued, Routine sodium chloride (NS) injection 5 mL 5 mL, Intravenous, PRN, Starting 12/17/19 at 1908, Until Discontinued, Routine, IV line flushing Action Date Dose Rate Site Medication Order MAR Action 12/17/2019 8:55 PM CDT 120 mL iohexol (OMNIPAQUE 350 BULK-150 mL) Given injection 120 mL 120 mL, Intravenous, ONCE, 1 dose, 12/17/19 at 2100, Routine 12/17/2019 10:07 PM CDT 30 mg ketorolac (TORADOL) injection 30 mg Given 30 mg, Slow IV Push, ONCE, 1 dose, 12/17/19 at 2315, ZOË, hourly team members approving Restricted medication: Barby CARDENAS 12/17/2019 7:47 PM CDT 6 mg morpHINE injection 6 mg Given 6 mg, Slow IV Push, ONCE, 1 dose, 12/17/19 at 2100, Routine 12/17/2019 7:46 PM CDT 1,000 mL 999 mL/hr NaCl 0.9% (NS) bolus infusion 1,000 mL New Bag at 999 mL/hr, 1,000 mL, IV Infusion, ONCE, 1 dose, 12/17/19 at 2030, STAT 12/17/2019 10:13 PM CDT 1,000 mL 999 mL/hr NaCl 0.9% (NS) bolus infusion 1,000 mL New Bag at 999 mL/hr, 1,000 mL, IV Infusion, ONCE, 1 dose, 12/17/19 at 2315, STAT 12/17/2019 7:46 PM CDT 4 mg ondansetron (ZOFRAN (PF)) injection 4 mg Given 4 mg, Slow IV Push, ONCE, 1 dose, 12/17/19 at 2100, ZOË documented in this encounter Insurance Type Payer Benefit Subscriber ID Effective Phone Address Plan / Dates Group Medicare Adv HMO/POS [facility] [id number] 2018-P [address] MED[facility]ARE ADVANTAGE [facility] [id number] [place] [id number] Medicaid [facility] [employer] xxxxxxxxx 2019-P P O [place]YA X OF [address] [id number] documented as of this encounter
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
--- NOTE | 2020-03-27 22:52 | Diagnostic Imaging Report ---
EXAMINATION: CHEST SINGLE (PORTABLE) INDICATION: ^Y ^fever, covid exposure ^Y COMPARISON: None FINDINGS: TUBES and LINES: None. LUNGS: Minimal streaky and hazy opacities in the mid and lower lungs. No consolidation. PLEURA: No pleural effusion or pneumothorax. HEART AND MEDIASTINUM: The cardiomediastinal silhouette is unremarkable. BONES AND SOFT TISSUES: No acute osseous lesion. Soft tissues are unremarkable. UPPER ABDOMEN: No free air under the diaphragm. IMPRESSION: Minimal bilateral streaky and hazy opacities in the mid lower lungs could represent early infection such as viral pneumonia or atelectasis. Signed by: Samuel Saavedra MD on 03/27/2020 10:48 PM
[2020-03-27 23:00] VITALS: BP 107/69
== END 2020-03-27 23:08 | disposition home or self-care (01) ==
LOC: ER 22:35
DX: J12.9 Viral pneumonia, unspecified (principal); R50.9 Fever, unspecified; R51 Headache; Z20.828 Contact with and (suspected) exposure to other viral communicable diseases; R11.2 Nausea with vomiting, unspecified; I10 Essential (primary) hypertension; E78.00 Pure hypercholesterolemia, unspecified
CPT/HCPCS: 71045; 81001; 81025; 99283; Q0162

== ENCOUNTER 2020-07-27 18:07 | Emergency (ER) | payer MEDICARE, OTHER ==
[~2020-07-27] VITALS: Ht 165.1 cm; Wt 106.6 kg
[2020-07-27] MEDS ORDERED: HYDROCODONE/APAP 10MG-325MG TAB PO ONE (20:00)
[2020-07-27] MEDS ORDERED: HYDROCODONE/APAP 10MG-325MG TAB ONE (20:04)
== END 2020-07-27 21:45 | disposition home or self-care (01) ==
LOC: ER 18:54
DX: S06.0X0A Concussion without loss of consciousness, initial encounter (principal); S63.502A Unspecified sprain of left wrist, initial encounter; Y04.8XXA Assault by other bodily force, initial encounter; Y92.008 Other place in unspecified non-institutional (private) residence as the place of occurrence of the external cause; I10 Essential (primary) hypertension
CPT/HCPCS: 72170; 81025; 99284